=== PATIENT | female | born 1935 | race Caucasian/White ===

== ENCOUNTER 2021-03-02 20:13 | Inpatient (IN) | payer MEDICARE, OTHER, MEDICAID, SELFPAY ==
[2021-03-02] VITALS (18 sets, daily range): BP systolic 139–181; BP diastolic 64–93; PULSE 103–121; RESP 20–28; TEMP 36.7; O2SAT 86–99
--- NOTE | ~2021-03-02 | XR_ITS ---
EXAMINATION: [id number] DATE: 03/03/2021 17:16 INDICATION: Right rib pain TECHNIQUE: A frontal inspiratory view of the chest and 3 views of the right ribs were obtained. COMPARISON: Chest CT dated 03/02/2021 FINDINGS: No rib fractures identified. Mild. Scattered peripheral smooth septal line thickening and along the l ateral right lung and at the left midlung zone consistent with minimal pulmonary edema. Very small ri ght pleural effusion with some blunting at the right costophrenic angle. No pneumothorax. Cardiomegal y. Median sternotomy wires and mediastinal surgical clips are seen, likely from prior coronary artery bypass grafting. Old healed right humeral neck fracture. IMPRESSION: 1. No right rib fractures. 2. Mild pulmonary edema and small right pleural effusion. Reviewed, dictated and finalized at location A.
--- NOTE | ~2021-03-02 | CT_ITS ---
EXAMINATION: CTA chest PE protocol DATE: 03/02/2021 23:10 INDICATION: Right-sided chest pain. TECHNIQUE: Computed tomography (CT) pulmonary angiogram of the chest was performed with 100 mL Omnipa que-350 intravenous contrast. Additional 3D reconstructions utilizing coronal maximum intensity proje ction (MIP) were performed. Automated exposure control and iterative reconstruction technique were em ployed. The dose-length product was 898.12 mGy-cm. COMPARISON: None FINDINGS: Good contrast opacification of the pulmonary arteries. There is mild streak artifact from dense contr ast in the superior vena cava and right atrium. Moderate scattered respiratory motion artifact. Toget her this decreases sensitivity in the basilar subsegmental pulmonary arteries. No pulmonary embolism. Small bilateral pleural effusions with dependent compressive atelectasis in the bilateral lower and to a lesser degree upper lobes. No pulmonary edema or pneumonia. Cardiomegaly. Atherosclerotic perera ry artery calcification with change of prior median sternotomy and coronary artery bypass grafting. A ortic valve calcification. No pericardial effusion. The tortuous and atherosclerotic thoracic aorta i s normal in caliber with no dissection. No pathologically enlarged thoracic lymphadenopathy. Mild tho racic dextroscoliosis with severe spondylosis. Anterior fusion at T11-L1. IMPRESSION: 1. No pulmonary embolus and . Sensitivity decreased in the basilar subsegmental pulmonary arteries du e to primarily to motion. 2. Small bilateral pleural effusions with dependent compressive atelectasis. 2. Cardiomegaly. Reviewed, dictated and finalized at location A. IMPRESSION: 1. No pulmonary embolus and . Sensitivity decreased in the basilar subsegmental pulmonary arteries due to primarily to motion. 2. Small bilateral pleural effusions with dependent compressive atelectasis. 2. Cardiomegaly.
--- NOTE | ~2021-03-02 | US_ITS ---
EXAMINATION: US venous doppler LE EXAM DATE: 03/03/2021 09:35 INDICATION: Lower extremity edema. TECHNIQUE: Multiple grayscale, color flow and Doppler images of the lower extremity deep venous syste ms bilaterally were obtained and reviewed. Correlation is made to CT pulmonary report from 03/02/2021. FINDINGS: Right side: The right common femoral, femoral and profunda veins demonstrate normal color flow, respi ratory variation, augmentation and compressibility. Compressibility, color flow confirmed within the right popliteal, posterior tibial, peroneal, and greater saphenous veins. Left side: The left common femoral, femoral and profunda veins demonstrate normal color flow, respira tory variation, augmentation and compressibility. Compressibility, color flow confirmed within the l eft popliteal, posterior tibial, peroneal, and greater saphenous veins. IMPRESSION: 1. No lower extremity deep venous thrombosis bilaterally. Reviewed, dictated and finalized at location B.
--- NOTE | 2021-03-02 22:05 | ED.GENADULT ---
HPI - General Adult General Chief complaint: Chest Pain Stated complaint: abnormal BNP and D dimer Time Seen by Provider: 03/02/21 20:24 History of Present Illness HPI narrative: Patient 85-year-old female presents to emergency department with chief complaint of right-sided chest pain. The patient reports that she has noticed that her right leg is swelling at the intermediate and then had sudden onset sharp pleuritic pain on the right side of her chest patient states she felt short of breath noticed that her heart rate was beating fast patient had laboratory studies done as an outpatient at the intermediate that showed her to have an elevated D-dimer Dilaudid Related Data Allergies Allergy/AdvReac Type Severity Reaction Status Date / Time No Known Allergies Allergy Verified 03/02/21 20:27 Review of Systems Review of Systems: A 10 system review of systems was completed on the patient and is negative except for what is stated in the HPI. Nursing and ancillary documentation was reviewed. PMFSH Past Medical History Medical History Cellulitis of perineum Wound abscess Exam Narrative: GENERAL: Well-appearing, well-nourished, and in no acute distress. HEAD: Normocephalic, atraumatic. EYES: PERRLA and EOMI. ENT: Nares clear, no rhinorrhea or epistaxis. Mucous membranes moist. NECK: Supple. CHEST: Clear to auscultation. No respiratory distress. HEART: Regular rate and rhythm. No murmur heard. Normal peripheral pulses. ABDOMEN: Soft, nontender, nondistended, normal active bowel sounds. EXTREMITIES: Normal range of motion. No edema. SKIN: Warm, dry, no rash. NEURO: No focal deficits. Alert and oriented x3. PSYCH: Normal mood and affect. Course Vital Signs Vital signs: Vital Signs Temperature 36.7 C 03/02/21 20:17 Pulse Rate 121 H 03/02/21 20:17 Respiratory Rate 24 H 03/02/21 20:17 Blood Pressure 181/93 H 03/02/21 20:17 Pulse Oximetry 99 03/02/21 20:17 Temperature 36.7 C 03/02/21 20:17 Pulse Rate 97 03/03/21 00:04 Respiratory Rate 24 H 03/03/21 00:04 Blood Pressure 133/63 03/03/21 00:04 Pulse Oximetry 91 03/03/21 00:04 Medical Decision Making Vital Signs Vital Signs: Vital Signs Temperature 36.7 C 03/02/21 20:17 Pulse Rate 121 H 03/02/21 20:17 Respiratory Rate 24 H 03/02/21 20:17 Blood Pressure 181/93 H 03/02/21 20:17 Pulse Oximetry 99 03/02/21 20:17 Temperature 36.7 C 03/02/21 20:17 Pulse Rate 97 03/03/21 00:04 Respiratory Rate 24 H 03/03/21 00:04 Blood Pressure 133/63 03/03/21 00:04 Pulse Oximetry 91 03/03/21 00:04 Lab Data Result diagrams: 03/02/21 22:04 03/02/21 22:04 Labs: Lab Results 03/02/21 03/02/21 03/02/21 Range/Units 22:04 22:04 22:04 WBC 13.9 H (4.5-10.0) K/mm3 RBC 2.95 L (4.2-5.4) M/mm3 Hgb 11.2 L (12.0-15.0) g/dL Hct 33.6 L (37.0-47.0) % MCV 113.9 H (80-100) fl MCH 38.0 H (26-34) pg MCHC 33.3 (32-36) g/dl RDW 13.6 (11.5-14.5) % Plt Count 216 (150-375) k/mm3 MPV 12.5 H (7.4-10.4) fl Immature Gran % (Auto) 10.0 H (0-0.5) % Neut % (Auto) 79.4 H (45.5-73.1) % Lymph % (Auto) 6.4 L (18.3-44.2) % Swisher % (Auto) 2.7 (2.6-8.5) % Eos % (Auto) 1.0 (0-4.4) % Baso % (Auto) 0.5 (0.2-1.2) % Lymph # (Auto) 0.89 L (0.9-3.2) K/mm3 Swisher # (Auto) 0.4 (0.1-0.6) K/mm3 Eos # (Auto) 0.1 (0-0.3) K/mm3 Baso # (Auto) 0.1 (0.0-0.1) K/mm3 Abs Immat Gran (auto) 1.39 H (0.00-0.031) K/mm3 Absolute Neuts (auto) 11.0 H (1.3-6.7) K/mm3 Absolute Nucleated RBC 0.0 (0.0-0.012) K/mm3 Nucleated RBC % 0.0 (0.0-0.2) % PT 14.3 (11.1-14.7) Seconds INR 1.1 APTT 33.6 (22.3-36.8) SECONDS Sodium 139 (137-145) mmol/L Potassium 4.1 (3.4-5.0) mmol/L Chloride 103 (98-107) mmol/L Carbon Dioxide 28 (22-30) mmol/L Anion
[2021-03-02 22:13] LABS: Basophils Absolute Auto 0.1 K/mm3 (0.0-0.1); Basophils Percent Auto 0.5 % (0.2-1.2); Eosinophils Absolute Auto 0.1 K/mm3 (0-0.3); Hematocrit 33.6 % (37.0-47.0); Hemoglobin 11.2 g/dL (12.0-15.0); Immature Granulocyte Absolute 1.39 K/mm3 (0.00-0.031); Lymphocytes Absolute Auto 0.89 K/mm3 (0.9-3.2); Lymphocytes Percent Auto 6.4 % (18.3-44.2); Mean Corpuscular HGB Conc 33.3 g/dl (32-36); Mean Corpuscular Volume 113.9 fl (80-100); Mean Platelet Volume 12.5 fl (7.4-10.4); Monocytes Absolute Auto 0.4 K/mm3 (0.1-0.6); Monocytes Percent Auto 2.7 % (2.6-8.5); Neutrophils Percent Auto 79.4 % (45.5-73.1); Platelet Count Result 216 k/mm3 (150-375); Red Blood Count 2.95 M/mm3 (4.2-5.4); Red Cell Distribution Width 13.6 % (11.5-14.5); White Blood Count 13.9 K/mm3 (4.5-10.0)
[2021-03-02 22:22] LABS: INR 1.1; Prothrombin Time 14.3 Seconds (11.1-14.7)
[2021-03-02 22:23] LABS: Partial Thromboplastin Time 33.6 SECONDS (22.3-36.8)
[2021-03-02 22:24] LABS: Alanine Aminotransferase 14 U/L (4-35); Albumin Level 4.1 g/dL (3.5-5.1); Alkaline Phosphatase 81 U/L (38-126); Anion Gap 8 mmol/L (8-16); Aspartate Amino Transferase 21 U/L (14-36); Bilirubin,Total 0.7 mg/dL (0.2-1.3); Blood Urea Nitrogen 16 mg/dL (7-17); Calcium 9.2 mg/dL (8.4-10.2); Carbon Dioxide 28 mmol/L (22-30); Chloride 103 mmol/L (98-107); Estimated Glomerular Filt Rate > 60; Glucose 204 mg/dL (65-110); Lipase 28 U/L (23-300); Potassium 4.1 mmol/L (3.4-5.0); Sodium 139 mmol/L (137-145)
[2021-03-02 22:40] LABS: NT Pro B Type Natriuretic Pept 3800 pg/mL (5-100); Troponin I 0.097 ng/mL (0.000-0.034)
[2021-03-02] MEDS: NITROGLYCERIN SL 0.4 MG TABLET SUBLINGUAL (23:33)
[2021-03-02] MEDS: ASPIRIN 81 MG CHEWABLE TABLET 324 MG PO (23:33)
[2021-03-03] VITALS (26 sets, daily range): BP systolic 115–190; BP diastolic 51–107; PULSE 61–123; RESP 14–26; TEMP 36.3–37.2; O2SAT 91–99; BMI 29.4
[2021-03-03 00:48] LABS: Troponin I 0.101 ng/mL (0.000-0.034)
[2021-03-03 01:21] LABS: Add Urine Microscopic? YES; Appearance Urine Clear (Clear); Bilirubin Urine Negative (Negative); Blood Urine Negative (Negative); Color Urine Yellow (Yellow); Glucose Urine UA Negative (Negative); Ketones Urine Trace mg/dL (Negative); Leukocyte Esterase Ur Trace LEU/UL (Negative); Mucus Urine Moderate /lpf; Nitrate Urine Negative (Negative); Protein Urine Negative (Negative); RBC Urine 21-50 /hpf (0-2); Squamous Epithelial Cell Urine Many /hpf (Few); Urobilinogen Urine Negative mg/dL (<2.0); WBC Urine 16-20 /hpf
--- NOTE | 2021-03-03 03:30 | ADMGEN ---
This patient, Shireen Couch, was admitted to IMU Room 211-01. Patient/family oriented to hospital policies and general routines including ID bracelet, bed and alarms, visiting hours, pain management, procedures, bathroom and other care routines, personal items, smoking policy, room service/diet, and visiting hours. Information on how to activate the Rapid Response Team has been discussed. Patient/Family are encouraged to report perceived risks to care and to ask questions if they do not understand what they are told or what they should do.
[2021-03-03 03:57] LABS: Troponin I 0.117 ng/mL (0.000-0.034)
[2021-03-03 05:30] LABS: Anion Gap 7 mmol/L (8-16); Blood Urea Nitrogen 18 mg/dL (7-17); Carbon Dioxide 28 mmol/L (22-30); Chloride 104 mmol/L (98-107); Estimated CRCL calculation 62 ml/min; Estimated Glomerular Filt Rate > 60; Glucose 192 mg/dL (65-110); Potassium 4.2 mmol/L (3.4-5.0); Sodium 139 mmol/L (137-145)
[2021-03-03 06:55] LABS: Hematocrit 30.9 % (37.0-47.0); Hemoglobin 10.5 g/dL (12.0-15.0); Mean Platelet Volume 12.4 fl (7.4-10.4); Platelet Count Result 178 k/mm3 (150-375); Red Blood Count 2.76 M/mm3 (4.2-5.4); Red Cell Distribution Width 13.6 % (11.5-14.5); White Blood Count 4.8 K/mm3 (4.5-10.0)
[2021-03-03 08:51] LABS: Glucose Point of Care 157 mg/dl (65-105)
[2021-03-03] MEDS: METOPROLOL SUCCINATE EXT REL 25 MG TABCR PO (09:45)
[2021-03-03] MEDS: MECLIZINE HCL 12.5 MG TABLET PO (09:45)
[2021-03-03] MEDS: ACIDOPHILUS/BULGARICUS CHEWABLE TABLET 1 TABLET PO ×2 (09:45→17:48)
[2021-03-03] MEDS: polyethylene glycoL 3350 17 GM POWD.PACK PO (09:45)
[2021-03-03] MEDS: ASPIRIN 81 MG ENTERIC TABLET PO (09:45)
[2021-03-03] MEDS: BACLOFEN 10 MG TABLET PO ×3 (09:46→17:48)
[2021-03-03] MEDS: GABAPENTIN 100 MG CAPSULE 200 MG PO ×2 (09:46→17:47)
[2021-03-03] MEDS: THERAPEUTIC MULTIVITAMINS/MINERALS TAB (*BKC) 1 TABLET PO (09:47)
[2021-03-03] MEDS: NITROFURANTOIN MONOHYD MACROCR 100 MG CAP PO (09:47)
[2021-03-03 10:23] LABS: Troponin I 0.095 ng/mL (0.000-0.034)
[2021-03-03 13:09] LABS: Glucose Point of Care 137 mg/dl (65-105)
--- NOTE | 2021-03-03 13:29 | PM.IMHP ---
H&P: HPI History of Present Illness Date/Time: 03/03/21 13:29 Chief Complaint: Chest pain Narrative: Date of admission: 03/02/21 Date of service: 03/02/21 Shireen Couch is an 85 year old female with a history of CAD, HTN, type 2 diabetes mellitus, and frequent urinary tract infections who is seen in follow up for right sided chest pain. She is occasionally confused but overall is able to provide me with a reasonably clear history. She tells me she came to the hospital to bring her friend in, but somehow she became the patient instead. Aside from this confusion, she is able to answer all my questions appropriately. She describes intermittent right-sided chest pain that is stabbing in nature ongoing for 2-3 days. Nothing relieves the pain. Her pain is sometimes worsened when she takes a deep breath or cough. Sometimes movement worsens the pain. She has no associated shortness of breath, palpitations, sweats, arm, shoulder, or jaw pain, or nausea/vomiting. She denies shortness of breath. At this time she rates her pain is 0/10. She says about an hour ago it was 4/10 and at its worst, it has been 7/10. She does have a history of coronary artery disease but reports she has never had symptoms similar to this in the past. On presentation to the emergency department, she was tachycardic and tachypneic, her BP was elevated, WBC 13.9, BNP 3800, troponin 0.097, additional laboratory workup unremarkable, and CTA showed cardiomegaly with small bilateral pleural effusions and no evidence of pulmonary embolism. She has been admitted to the hospitalist service for observation. Supervising physician for this history and physical is Dr. Na Quijano. Review of Systems Review of Systems: All systems reviewed with pertinent positives and negatives as per HPI. Additionally, patient endorses chronic cough. She endorses acid reflux. She complains of occasional dysphagia, noting that sometime she chokes when she eats meals. She had a normal bowel movement yesterday. She tells me that she is incontinent of stool. I spoke with prison staff who report that she has been on a lengthy course of treatment for urinary tract infection. She had just completed cefuroxime yesterday and has continued to take Macrobid. She is unable to endorse any urinary symptoms. She denies any episodes of bleeding. She does feel that she has been more weak and has difficulty getting around. She is wheelchair dependent. She denies headache. She does report feeling a bit confused mostly because ?everyone is asking me all these questions?. She has no known COVID exposure and completed her two part vaccination several months ago (cannot recall when). Spoke with her daughter who notes that she often has some mild confusion with cognitive decline noted over the past several months. She believes she is more confused than baseline today. She also believes that she has had increased weakness. [facility] Past Medical History Medical History (Updated 03/03/21 @ 16:06 by Fadumo Collado PA-C) Cellulitis of perineum Coronary artery disease Frequent UTI Hypertension Type 2 diabetes mellitus Wound abscess Surgical History Surgical History (Updated 03/03/21 @ 15:49 by Fadumo Collado PA-C) History of coronary artery bypass graft 2008 Family History Family History Father Heart disease Mother Alzheimer disease Social History Social History (Updated 03/03/21 @ 15:51 by Fadumo Collado PA-C) Social History: Ms. Couch lives at [facility]. 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 Yan Scott. She has 2 adult children. She designates her daughter, Sally, as her surrogate decision maker. She would like to be DNR. Smoking status: Never smoker Alcohol intake: never Substance use: never Spiritual care concerns: No Meds Home Medications and All
--- NOTE | 2021-03-03 16:14 | ECG_ITS ---
Measurements Intervals [place] Rate: 95 P: 65 RI: 205 QRS: 33 QRSD: 141 T: -3 QT: 381 QTc: 481 Interpretive Statements SINUS RHYTHM BORDERLINE AV CONDUCTION DELAY RIGHT BUNDLE BRANCH BLOCK INFERIOR INFARCT, AGE INDETERMINATE BASELINE WANDER- V3 ABNORMAL ECG Electronically Signed On 03-03-2021 19:51:07 CDT by Richie Scott D.O.
--- NOTE | 2021-03-03 16:14 | PC.NURSE ---
On 03/03/21, the student, Twila [facility], provided care and completed mobintent documentation on this patient. I have reviewed the student's documentation and agree with the findings.
[2021-03-03 16:38] LABS: Glucose Point of Care 152 mg/dl (65-105)
[2021-03-03] MEDS: FUROSEMIDE 40 MG TABLET PO (17:47)
[2021-03-03] MEDS: AMIODARONE 150 MG/D5W 100 ML 150 MG/100 ML BAG 600 MG IV CONT (18:14)
[2021-03-03] MEDS: AMIODARONE 360 MG/D5W 200 ML 360 MG/200 ML BAG 33.33 MG IV CONT (18:25)
[2021-03-03 20:20] LABS: Glucose Point of Care 232 mg/dl (65-105)
[2021-03-03 22:12] LABS: Anion Gap 9 mmol/L (8-16); Blood Urea Nitrogen 19 mg/dL (7-17); Carbon Dioxide 30 mmol/L (22-30); Chloride 100 mmol/L (98-107); Estimated CRCL calculation 54 ml/min; Estimated Glomerular Filt Rate > 60; Glucose 236 mg/dL (65-110); Magnesium 1.9 mg/dL (1.6-2.3); Phosphorus 4.1 mg/dL (2.5-4.5); Potassium 3.7 mmol/L (3.4-5.0); Sodium 139 mmol/L (137-145)
[2021-03-04] VITALS (18 sets, daily range): BP systolic 119–141; BP diastolic 46–74; PULSE 60–74; RESP 12–18; TEMP 36.1–36.9; O2SAT 91–100; BMI 11.0
[2021-03-04 05:34] LABS: Hematocrit 31.3 % (37.0-47.0); Hemoglobin 10.2 g/dL (12.0-15.0); Mean Corpuscular HGB Conc 32.6 g/dl (32-36); Mean Corpuscular Hemoglobin 37.9 pg (26-34); Mean Corpuscular Volume 116.4 fl (80-100); Mean Platelet Volume 12.8 fl (7.4-10.4); Platelet Count Result 176 k/mm3 (150-375); Red Blood Count 2.69 M/mm3 (4.2-5.4); Red Cell Distribution Width 13.7 % (11.5-14.5); White Blood Count 5.2 K/mm3 (4.5-10.0)
[2021-03-04 05:45] LABS: Anion Gap 9 mmol/L (8-16); Blood Urea Nitrogen 23 mg/dL (7-17); Calcium 9.1 mg/dL (8.4-10.2); Carbon Dioxide 33 mmol/L (22-30); Chloride 99 mmol/L (98-107); Estimated CRCL calculation 54 ml/min; Estimated Glomerular Filt Rate > 60; Glucose 163 mg/dL (65-110); Potassium 3.6 mmol/L (3.4-5.0); Sodium 141 mmol/L (137-145)
--- NOTE | 2021-03-04 06:00 | ECHO_ITS ---
Patient Info Name: Shireen Couch Age: 85 years : 1935 Gender: Female Ht: 66 in Wt: 182 lbs BSA: 1.98 m2 HR: 74 bpm BP: 132 / 54 mmHg Technical Quality: Fair Exam Date: 03/04/2021 10:34 AM Exam Location: [facility] Patient Status: Inpatient Admit Date: 03/04/2021 Staff Ordering Physician: Alfredo Harris MD Alcohol And Drug Counselor: Nasreen Moreland RDCS Attending Provider: Fadumo Collado PA-C Referring Physician: Steven GAITAN; Exam Type: CA echo dop color flow w con Study Info Indications - ELEVATED BNP R07.9 - Chest pain, unspecified Complete two-dimensional, color flow and Doppler transthoracic echocardiogram is performed with contrast to opacify the left ventricle and to improve the deliniation of the left ventricle endocardial borders. Contrast/Agitated Saline Contrast/Ag. Saline: Definity Amount: 1.00 ml Administered By: Ivette Mcmahon RN Existing IV Access: Yes IV Access Condition: patent with no signs of infiltration Summary 1. Left ventricular chamber dimension is moderately enlarged. 2. Definity contrast administered improved wall motion interpretation. 3. Left ventricular systolic function is moderately reduced, estimated at 35-40%. 4. The left ventricular diastolic function is grade I diastolic dysfunction. 5. E/e' 13 is mildly elevated. 6. Global longitudinal strain is abnormal at -10.2%. 7. Left atrial chamber dimension is mildly enlarged. 8. There is severe aortic valve sclerosis. 9. There is moderate aortic valve stenosis with a peak velocity of 218.29 cm/s, mean gradient of 12 mmHg, and aortic valve area of 1.47 cm2. 10. The mitral valve has moderately calcified annulus. 11. There is mild mitral valve regurgitation. 12. There is trace tricuspid valve regurgitation. 13. No pulmonary hypertension, estimated pulmonary arterial systolic pressure is 22 mmHg. Left Ventricle E/e' 13 is mildly elevated. Global longitudinal strain is abnormal at -10.2%. Definity contrast administered improved wall motion interpretation. Left ventricular chamber dimension is moderately enlarged. Left ventricular systolic function is moderately reduced, estimated at 35-40%. The left ventricular diastolic function is grade I diastolic dysfunction. Right Ventricle Right ventricular chamber dimension is not well visualized. Left Atria Left atrial chamber dimension is mildly enlarged. Right Atria Right atrial chamber dimension is normal. Aortic Valve The aortic valve is trileaflet. There is severe aortic valve sclerosis. There is moderate aortic valve stenosis with a peak velocity of 218.29 cm/s, mean gradient of 12 mmHg, and aortic valve area of 1.47 cm2. There is no aortic valve regurgitation. Pulmonic Valve There is no pulmonic regurgitation. Mitral Valve The mitral valve has moderately calcified annulus. There is no mitral valve stenosis. There is mild mitral valve regurgitation. Tricuspid Valve There is trace tricuspid valve regurgitation. No pulmonary hypertension, estimated pulmonary arterial systolic pressure is 22 mmHg. Pericardium/Pleural There is no pericardial effusion. Inferior Vena Cava Normal inferior vena cava with >50% collapse upon inspiration consistent with normal right atrial pressure, 5 mmHg. Aorta The aortic root size at the sinus of Valsalva is normal. Left Ventricular Outflow Tract
--- NOTE | 2021-03-04 08:06 | PM.CNCAR ---
Assessment and Plan Assessment and plan (1) Dyspnea: Code(s): R06.00 - Dyspnea, unspecified Status: Acute Assessment and Plan: Agree with Lasix 40 mg PO daily. (2) CAD (coronary artery disease), autologous vein bypass graft: Code(s): I25.810 - Atherosclerosis of coronary artery bypass graft(s) without angina pectoris Status: Acute Assessment and Plan: She is on aspirin and Metoprolol, but not a statin for unknown reasons. Not sure if she has a instrumentation chemist she normally sees. May need info from family as patient is unsure. (3) Elevated troponin: Code(s): R77.8 - Other specified abnormalities of plasma proteins Status: Acute Assessment and Plan: Mild and flat. Probably related to volume overload. Will check echo. (4) PAT (paroxysmal atrial tachycardia): Code(s): I47.1 - Supraventricular tachycardia Status: Acute Assessment and Plan: On Amiodarone drip. (5) PVT (paroxysmal ventricular tachycardia): Code(s): I47.2 - Ventricular tachycardia Status: Acute Assessment and Plan: Started on Amiodarone drip last evening. Will run for 24 hours, then change to 200 mg PO BID for 2 weeks, then 200 mg daily. EKG to check QT interval. Obtain echo. History of Present Illness History of Present Illness Consult date/time: 03/04/21 08:06 Reason for consult: VT. 85 yr old woman presented to hospital for unknown reasons as patient is confused. History and information obtained from the chart. She has a history of worsening confusion probably due to dementia, CAD/CABG (per patient it was 5 vessels, unknown hospital or date it was done), DM, UTI, DNR code status, and resides at [facility]. She is alert and oriented x 2 but not location, thinking she is in her attic of her house, and forgot I informed her she is in the hospital. She states she has some sob currently, but no chest pain. She states she can walk with her walker about 50 feet normally. Hb 10.2. Trop .101, then .117, then .095. EKG shows Sinus rhythm, borderline AV conduction delay, RBBB, inferior infarct, age indeterminate. CXR shows mild pulm edema with small right pleural effusion.CT chest shows no pulm embolism. On telemetry at around 17:50 she had runs of atrial tachycardia up to 150 bpm and then 18:04 had intermittent runs of VT up to 15 beats. Amiodarone drip started and her rhythm has been sinus rhtyhm. Reason For Visit: Chest pain; Elevated troponin Review of Systems Review of Systems: ROS unobtainable: Yes unobtainable due to mental status Constitutional: Constitutional: Reports as per HPI Cardiovascular: Cardiovascular: Denies chest pain and Reports dyspnea Respiratory: Respiratory: Reports dyspnea Gastrointestinal: Gastrointestinal: Denies abdominal pain [facility] Past Medical History Medical History (Updated 03/04/21 @ 08:15 by Richie Scott DO) Cellulitis of perineum Coronary artery disease Frequent UTI Hypertension Type 2 diabetes mellitus Wound abscess Surgical History Surgical History (Updated 03/03/21 @ 15:49 by Fadumo Collado PA-C) History of coronary artery bypass graft 2008 Family History Family History Father Heart disease Mother Alzheimer disease Social History Social History (Updated 03/03/21 @ 15:51 by Fadumo Collado PA-C) Social History: Ms. Couch lives at [facility] ([place], [place]). 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 Yan Scott. She has 2 adult children. She designates her daughter, Sally, as her surrogate decision maker. She would like to be DNR. Smoking status: Never smoker Alcohol intake: never Substance use: never Spiritual care concerns: No Meds Home Medications and Allergies Home Medications Medication Instructions Recorded Confirmed Type hydrocodone 7.5 mg-acetaminophen 1 tablet
[2021-03-04 08:23] LABS: Glucose Point of Care 144 mg/dl (65-105)
[2021-03-04] MEDS: FUROSEMIDE 40 MG TABLET PO (09:53)
[2021-03-04] MEDS: ENOXAPARIN 40 MG/0.4 ML SYRINGE SUB-Q (09:53)
[2021-03-04] MEDS: GABAPENTIN 100 MG CAPSULE 200 MG PO ×2 (09:53→17:17)
[2021-03-04] MEDS: BACLOFEN 10 MG TABLET PO ×3 (09:53→17:17)
[2021-03-04] MEDS: METOPROLOL SUCCINATE EXT REL 25 MG TABCR PO (09:54)
[2021-03-04] MEDS: MECLIZINE HCL 12.5 MG TABLET PO (09:54)
[2021-03-04] MEDS: ACIDOPHILUS/BULGARICUS CHEWABLE TABLET 1 TABLET PO ×2 (09:54→17:17)
[2021-03-04] MEDS: ASPIRIN 81 MG ENTERIC TABLET PO (09:54)
[2021-03-04] MEDS: THERAPEUTIC MULTIVITAMINS/MINERALS TAB (*BKC) 1 TABLET PO (09:54)
[2021-03-04] MEDS: polyethylene glycoL 3350 17 GM POWD.PACK PO (09:54)
[2021-03-04] MEDS: PERFLUTREN LIPID MICROSPHERES 1.5 ML VIAL DILUTED TO 10 ML TOTAL VOLUME IV PUSH (11:07)
[2021-03-04] MEDS: AMIODARONE 360 MG/D5W 200 ML 360 MG/200 ML BAG 16.67 MG IV CONT ×2 (11:54)
[2021-03-04 12:42] LABS: Glucose Point of Care 177 mg/dl (65-105)
--- NOTE | 2021-03-04 14:58 | P.PNIM_ITS ---
Progress Note: A&P Assessment and Plan (1) PVT (paroxysmal ventricular tachycardia): Code(s): I47.2 - Ventricular tachycardia Status: Acute Assessment and Plan: Had an episode of stable ventricular tachycardia yesterday evening. * Appreciate cardiology consultation * Started on amiodarone drip 03/03 * Transition to amiodarone 200 mg p.o. b.i.d. after amiodarone drip for 24 hours. * EKG and echocardiogram reviewed. * Electrolytes stable. Continue to monitor closely. * Monitor on telemetry (2) CHF (congestive heart failure): Code(s): I50.9 - Heart failure, unspecified Status: Acute Assessment and Plan: BNP elevated at 3800 with cardiomegaly and small pleural effusions on CTA. * Echo performed today showed EF 35-40% with grade 1 diastolic dysfunction * Continue with Lasix 40 mg p.o. daily * Monitor intake and output. Weigh daily * Heart healthy diet (3) Hypoxia: Code(s): R09.02 - Hypoxemia Status: Acute Assessment and Plan: Noted to be hypoxic down to 86% on presentation to ED. may be related to CHF. No evidence of lung disease arm pulmonary embolism on CTA * She is currently requiring 3 L supplemental O2, maintaining adequate oxygenation 95% or above, therefore this can be weaned as tolerated with goal saturation 92% or above. (4) Atypical chest pain: Code(s): R07.89 - Other chest pain Status: Acute Assessment and Plan: Presented with 2 days of right-sided pleuritic chest pain which is reproducible on exam. Most consistent with musculoskeletal pain. * CTA negative for PE * X-ray negative for right-sided rib fracture. * Supportive care. Analgesics available as needed. Ice and heat prn (5) Elevated troponin: Code(s): R77.8 - Other specified abnormalities of plasma proteins Status: Acute Assessment and Plan: Troponins minimally elevated with overall flat trend. Chest pain atypical as described above. * This may be due to volume overload given elevated BNP and crackles on exam. * Acute coronary syndrome is not suspected based on overall clinical picture * Echo reviewed (6) Abnormal urinalysis: Code(s): R82.90 - Unspecified abnormal findings in urine Status: Acute Assessment and Plan: UA abnormal on presentation. She is incontinent and not able to indicate urinary symptoms, though she is more confused than baseline. Mild leukocytosis has resolved. She is afebrile. * Continue IV ceftriaxone, started on 03/03 * Urine culture pending. Await results and tailor antibiotics accordingly. * She has been on Macrobid at detention for UTI. Hold this medication. (7) Type 2 diabetes mellitus: Code(s): E11.9 - Type 2 diabetes mellitus without complications Status: Acute Assessment and Plan: A1c is 7.0. * Accu-Cheks, sliding scale insulin, and hypoglycemic protocol * Continue home Januvia (8) Hypertension: Code(s): I10 - Essential (primary) hypertension Status: Acute Assessment and Plan: Blood pressure reviewed and has been generally well controlled. Last BP 132/61 * Continue metoprolol succinate * Monitor blood pressure trends (9) Moderate aortic stenosis: Code(s): I35.0 - Nonrheumatic aortic (valve) stenosis Status: Inactive Assessment and Plan: Evident on echocardiogram. Blood pressure is stable * Outpatient cardiology follow-up will be arranged Subj
--- NOTE | 2021-03-04 14:58 | PM.IMPN ---
Progress Note: A&P Assessment and Plan (1) PVT (paroxysmal ventricular tachycardia): Code(s): I47.2 - Ventricular tachycardia Status: Acute Assessment and Plan: Had an episode of stable ventricular tachycardia yesterday evening. Appreciate cardiology consultation Started on amiodarone drip 03/03 Transition to amiodarone 200 mg p.o. b.i.d. after amiodarone drip for 24 hours. EKG and echocardiogram reviewed. Electrolytes stable. Continue to monitor closely. Monitor on telemetry (2) CHF (congestive heart failure): Code(s): I50.9 - Heart failure, unspecified Status: Acute Assessment and Plan: BNP elevated at 3800 with cardiomegaly and small pleural effusions on CTA. Echo performed today showed EF 35-40% with grade 1 diastolic dysfunction Continue with Lasix 40 mg p.o. daily Monitor intake and output. Weigh daily Heart healthy diet (3) Hypoxia: Code(s): R09.02 - Hypoxemia Status: Acute Assessment and Plan: Noted to be hypoxic down to 86% on presentation to ED. may be related to CHF. No evidence of lung disease arm pulmonary embolism on CTA She is currently requiring 3 L supplemental O2, maintaining adequate oxygenation 95% or above, therefore this can be weaned as tolerated with goal saturation 92% or above. (4) Atypical chest pain: Code(s): R07.89 - Other chest pain Status: Acute Assessment and Plan: Presented with 2 days of right-sided pleuritic chest pain which is reproducible on exam. Most consistent with musculoskeletal pain. CTA negative for PE X-ray negative for right-sided rib fracture. Supportive care. Analgesics available as needed. Ice and heat prn (5) Elevated troponin: Code(s): R77.8 - Other specified abnormalities of plasma proteins Status: Acute Assessment and Plan: Troponins minimally elevated with overall flat trend. Chest pain atypical as described above. This may be due to volume overload given elevated BNP and crackles on exam. Acute coronary syndrome is not suspected based on overall clinical picture Echo reviewed (6) Abnormal urinalysis: Code(s): R82.90 - Unspecified abnormal findings in urine Status: Acute Assessment and Plan: UA abnormal on presentation. She is incontinent and not able to indicate urinary symptoms, though she is more confused than baseline. Mild leukocytosis has resolved. She is afebrile. Continue IV ceftriaxone, started on 03/03 Urine culture pending. Await results and tailor antibiotics accordingly. She has been on Macrobid at [facility] for UTI. Hold this medication. (7) Type 2 diabetes mellitus: Code(s): E11.9 - Type 2 diabetes mellitus without complications Status: Acute Assessment and Plan: A1c is 7.0. Accu-Cheks, sliding scale insulin, and hypoglycemic protocol Continue home Januvia (8) Hypertension: Code(s): I10 - Essential (primary) hypertension Status: Acute Assessment and Plan: Blood pressure reviewed and has been generally well controlled. Last BP 132/61 Continue metoprolol succinate Monitor blood pressure trends (9) Moderate aortic stenosis: Code(s): I35.0 - Nonrheumatic aortic (valve) stenosis Status: Inactive Assessment and Plan: Evident on echocardiogram. Blood pressure is stable Outpatient cardiology follow-up will be arranged Subjective Date/time seen: 03/04/21 14:58 Interval history: Date of service: 03/04/2020 Shireen Couch is an 85 year old female with a history of CAD, HTN, type 2 diabetes mellitus, and frequent urinary tract infections. She is doing well today. She is to answer all questions appropriately but does exhibit significant confusion in conversation. She continues to endorse right-sided chest discomfort that she describes as a stabbing sensation and is worse with movement. She was able to g
[2021-03-04 17:07] LABS: Glucose Point of Care 179 mg/dl (65-105)
[2021-03-04] MEDS: AMIODARONE HCL 200 MG TABLET PO (17:17)
[2021-03-04 20:49] LABS: Glucose Point of Care 170 mg/dl (65-105)
[2021-03-05] VITALS (19 sets, daily range): BP systolic 116–155; BP diastolic 49–77; PULSE 60–80; RESP 15–22; TEMP 36.1–36.9; O2SAT 96–100
[2021-03-05 05:03] LABS: Hematocrit 28.7 % (37.0-47.0); Hemoglobin 9.7 g/dL (12.0-15.0); Mean Corpuscular HGB Conc 33.8 g/dl (32-36); Mean Corpuscular Hemoglobin 37.6 pg (26-34); Mean Corpuscular Volume 111.2 fl (80-100); Mean Platelet Volume 12.8 fl (7.4-10.4); Platelet Count Result 191 k/mm3 (150-375); Red Blood Count 2.58 M/mm3 (4.2-5.4); Red Cell Distribution Width 13.2 % (11.5-14.5); White Blood Count 5.2 K/mm3 (4.5-10.0)
[2021-03-05 05:16] LABS: Anion Gap 6 mmol/L (8-16); Blood Urea Nitrogen 18 mg/dL (7-17); Calcium 8.7 mg/dL (8.4-10.2); Carbon Dioxide 33 mmol/L (22-30); Chloride 98 mmol/L (98-107); Cholesterol 175 mg/dL (0-200); Estimated CRCL calculation 54 ml/min; Estimated Glomerular Filt Rate > 60; Glucose 158 mg/dL (65-110); HDL Direct 25 mg/dL; Potassium 3.4 mmol/L (3.4-5.0); Sodium 137 mmol/L (137-145); Triglycerides 151 mg/dL (<150)
[2021-03-05 05:26] LABS: LDL Cholesterol Direct 120 mg/dL
--- NOTE | 2021-03-05 06:26 | ECG_ITS ---
Measurements Intervals [place] Rate: 68 P: 43 OR: 221 QRS: 18 QRSD: 138 T: 45 QT: 473 QTc: 503 Interpretive Statements SINUS RHYTHM WITH FIRST DEGREE AV BLOCK RIGHT BUNDLE BRANCH BLOCK INFERIOR INFARCT, AGE INDETERMINATE PROLONGED QT INTERVAL ABNORMAL ECG Electronically Signed On 03-05-2021 11:11:55 CDT by Richie Scott D.O.
--- NOTE | 2021-03-05 07:33 | P.CDI_ITS ---
CDI Query Clarification Request -CHF has been documented - BNP elevated at 3800 with cardiomegaly and small pleural effusions on CTA documented -CXR impression: mild pulmonary edema and small right pleural effusion - Echo summary: EF 35-40 %, grade 1 diastolic dysfunction, moderate aortic stenosis -Lasix 40mf po daily ordered Please further specify type and acuity of CHF: * Systolic *Acute * Diastolic *Chronic * Both systolic and diastolic *Acute on chronic * Unable to determine *Unable to determine
--- NOTE | 2021-03-05 07:35 | PM.PNCARD ---
Progress Note: A&P Assessment and Plan (1) Dyspnea: Code(s): R06.00 - Dyspnea, unspecified Status: Acute Assessment and Plan: Agree with Lasix 40 mg PO daily. (2) CAD (coronary artery disease), autologous vein bypass graft: Code(s): I25.810 - Atherosclerosis of coronary artery bypass graft(s) without angina pectoris Status: Acute Assessment and Plan: She is on aspirin and Metoprolol, start Pravastatin. (3) Elevated troponin: Code(s): R77.8 - Other specified abnormalities of plasma proteins Status: Acute Assessment and Plan: Mild and flat. Probably related to volume overload. (4) PAT (paroxysmal atrial tachycardia): Code(s): I47.1 - Supraventricular tachycardia Status: Acute Assessment and Plan: Stable rhythm on Amiodarone PO. (5) PVT (paroxysmal ventricular tachycardia): Code(s): I47.2 - Ventricular tachycardia Status: Acute Assessment and Plan: Stable rhythm on Amiodarone. Received Amiodarone drip for 24 hours, then changed to 200 mg PO BID for 2 weeks, then 200 mg daily. EKG to check QT interval. 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 On Lasix 40 mg PO daily. Echo showed EF 35-40%, grade I diastolic dysfunction, mod . On Toprol. Start Losartan 25 mg daily. Assess oxygen requirements and if OK may d/c home from cardiology standpoint and to f/u with me in 1 week. (7) Dyslipidemia: Code(s): E78.5 - Hyperlipidemia, unspecified Status: Acute Assessment and Plan: LDL 120. Start Pravastatin 10 mg daily. (8) Aortic stenosis: Code(s): I35.0 - Nonrheumatic aortic (valve) stenosis Status: Acute Assessment and Plan: Moderate. Stable. Subjective Date/time seen: 03/05/21 07:35 Reports right chest twinges only. Has some sob. Exam Const: General: cooperative, healthy appearing, comfortable, alert and confusion Resp: Auscultation: clear to auscultation bilaterally, no crackles, no rales, no rhonchi and no wheezes Cardio: Jugular venous distension: JVD present Rate: regular rate Rhythm: regular rhythm Heart sounds: no murmurs GI: GI Palp: No abdominal tenderness and Yes Soft to palpation Neuro: General: oriented to person, No oriented to place and oriented to time Extrem: Right lower extremity: no edema Left lower extremity: no edema Objective Data Vital Signs Vital Signs: Vital Signs - 24 hr 03/04/21 08:00 03/04/21 09:54 03/04/21 10:00 Temperature 97.5 F L Pulse Rate 71 69 74 Respiratory Rate 12 Blood Pressure 141/62 H Pulse Oximetry 96 03/04/21 11:54 03/04/21 12:00 03/04/21 14:00 Temperature 98.4 F Pulse Rate 66 66 71 Respiratory Rate 12 Blood Pressure 132/61 Pulse Oximetry 96 03/04/21 15:00 03/04/21 16:00 03/04/21 17:17 Temperature 98.3 F Pulse Rate 71 71 Respiratory Rate 12 Blood Pressure 119/46 L Pulse Oximetry 95 96 03/04/21 18:00 03/04/21 19:53 03/04/21 20:00 Temperature 96.9 F L Pulse Rate 73 67 68 Respiratory Rate 18 Blood Pressure 126/55 L Pulse Oximetry 94 96 03/04/21 22:00 03/04/21 23:36 03/05/21 00:00 Temperature 97.4 F L Pulse Rate 62 71 60 Respiratory Rate 16 Blood Pressure 137/53 L Pulse Oximetry 100 96 03/05/21 01:08 03/05/21 02:00 03/05/21 03:50 Temperature 97 F L Pulse Rate 62 65 Respiratory Rate 18 Blood Pressure 144/57 H Pulse Oximetry 96 98 03/05/21 04:00 Temperature Pulse Rate 63 Respiratory Rate Blood Pressure Pulse Oximetry 98 Intake/Output Intake/Output: Intake & Output 03/02/21 03/03/21 03/04/21 03/05/21 23:59 23:59 23:59 23:59 Intake Total 120 1180 300 Balance 120 1180 300 Meds/Results Medications: Active Medications Generic Name
[2021-03-05 10:14] LABS: Glucose Point of Care 159 mg/dl (65-105)
[2021-03-05] MEDS: ACIDOPHILUS/BULGARICUS CHEWABLE TABLET 1 TABLET PO ×2 (10:19→18:11)
[2021-03-05] MEDS: GABAPENTIN 100 MG CAPSULE 200 MG PO ×2 (10:20→18:11)
[2021-03-05] MEDS: THERAPEUTIC MULTIVITAMINS/MINERALS TAB (*BKC) 1 TABLET PO (10:20)
[2021-03-05] MEDS: MECLIZINE HCL 12.5 MG TABLET PO (10:20)
[2021-03-05] MEDS: PRAVASTATIN SODIUM 10 MG TABLET PO (10:20)
[2021-03-05] MEDS: AMIODARONE HCL 200 MG TABLET PO (10:21)
[2021-03-05] MEDS: LOSARTAN POTASSIUM 25 MG TABLET PO (10:21)
[2021-03-05] MEDS: METOPROLOL SUCCINATE EXT REL 25 MG TABCR PO (10:25)
[2021-03-05] MEDS: ASPIRIN 81 MG ENTERIC TABLET PO (10:25)
[2021-03-05] MEDS: ENOXAPARIN 40 MG/0.4 ML SYRINGE SUB-Q (10:26)
[2021-03-05] MEDS: BACLOFEN 10 MG TABLET PO ×3 (10:26→18:11)
[2021-03-05] MEDS: polyethylene glycoL 3350 17 GM POWD.PACK PO (10:26)
[2021-03-05] MEDS: FUROSEMIDE 40 MG TABLET PO (10:26)
--- NOTE | 2021-03-05 12:00 | PM.IMPN ---
Progress Note: A&P Assessment and Plan (1) PVT (paroxysmal ventricular tachycardia): Code(s): I47.2 - Ventricular tachycardia Status: Acute Assessment and Plan: Had an episode of stable ventricular tachycardia 03/03 Cardiology consulted, recommendations appreciated S/p amiodarone drip x24 hrs Now on amiodarone 200 mg p.o. b.i.d. x2 weeks, then 200 mg daily ECHO-->EF 35-40 %, grade I diastolic dysfunction, mod Continue Toprol Losartan initiated today per cards Tele monitoring (2) CHF (congestive heart failure): Code(s): I50.9 - Heart failure, unspecified Status: Acute Assessment and Plan: BNP elevated at 3800 with cardiomegaly and small pleural effusions on CTA ECHO-->EF 35-40 %, grade I diastolic dysfunction, mod Continue with Lasix 40 mg p.o. daily Monitor intake and output Weigh daily Heart healthy diet Wean O2 PT/OT (3) Hypoxia: Code(s): R09.02 - Hypoxemia Status: Acute Assessment and Plan: Noted to be hypoxic down to 86% on presentation to ED Suspect related to CHF. No evidence of lung disease arm pulmonary embolism on CTA Now on 3 L supplemental O2, maintaining adequate oxygenation 95% or above, wean as tolerated with goal saturation 92% or > (4) Atypical chest pain: Code(s): R07.89 - Other chest pain Status: Acute Assessment and Plan: CTA negative for PE X-ray negative for right-sided rib fracture Supportive care. Analgesics available as needed Ice and heat prn (5) Elevated troponin: Code(s): R77.8 - Other specified abnormalities of plasma proteins Status: Acute Assessment and Plan: Troponins minimally elevated, flat trend chest pain atypical Likely 2/2 CHF exacerbation Acute coronary syndrome is not suspected based on overall clinical picture Echo reviewed (6) Abnormal urinalysis: Code(s): R82.90 - Unspecified abnormal findings in urine Status: Acute Assessment and Plan: UA abnormal on presentation Incontinent, denies urinary symptoms More confused than baseline Mild leukocytosis has resolved, afebrile Continue IV ceftriaxone, started on 03/03 UC probable contamination She has been on Macrobid at [facility] for UTI. Hold for now (7) Type 2 diabetes mellitus: Code(s): E11.9 - Type 2 diabetes mellitus without complications Status: Acute Assessment and Plan: A1c is 7.0 Accu-Cheks, sliding scale insulin, and hypoglycemic protocol Continue home Januvia Monitor (8) Hypertension: Code(s): I10 - Essential (primary) hypertension Status: Acute Assessment and Plan: Elevated this a.m. Continue metoprolol succinate Monitor blood pressure trends (9) Moderate aortic stenosis: Code(s): I35.0 - Nonrheumatic aortic (valve) stenosis Status: Inactive Assessment and Plan: Evident on echocardiogram Cardiology consulted, pt to follow up o/p Subjective Date/time seen: 03/05/21 12:00 Interval history: pt seen and evaluated; no acute events overnight; denies any new complaints Review of Systems Review of Systems: All systems reviewed & are unremarkable except as noted in HPI and below Exam Const: General: no acute distress, alert and awake Orientation/consciousness: patient oriented x3 HENMT: Head: normocephalic and atraumatic Ears: hearing grossly normal bilaterally and external ears normal Face and sinus: face symmetric Mouth: Yes Normal oral and palatal mucosa present Eyes: Pupils: Equal, round and reactive pupils present EOM: EOMs intact bilaterally Neck: Neck: full ROM, trachea midline and no JVD Resp: Auscultation: diminished lung sounds Cardio: Jugular venous distension: no JVD Rate: regular rate Rhythm: regular rhythm Heart sounds: S1 normal heart sound present and S2 normal heart sound present GI: Inspection: normal to inspection GI Palp: Yes Soft to palpation Percussion: Yes normal to percussion Au
[2021-03-05 13:17] LABS: Glucose Point of Care 216 mg/dl (65-105)
[2021-03-05] MEDS: INSULIN ASPART (*BKC) 100 UNITS/ML SUB-Q (13:20)
--- NOTE | 2021-03-05 15:48 | PCRCNOTE ---
HOME O2 EVAL NOT REQUIRED. PT RESIDES IN ALF, ALF STAFF WITH [facility] o2 as needed.
[2021-03-05 16:48] LABS: Glucose Point of Care 119 mg/dl (65-105)
[2021-03-05 20:52] LABS: Glucose Point of Care 162 mg/dl (65-105)
[2021-03-06] VITALS (21 sets, daily range): BP systolic 108–147; BP diastolic 41–58; PULSE 61–77; RESP 15–26; TEMP 35.9–36.6; O2SAT 90–100
[2021-03-06 05:20] LABS: Hematocrit 29.3 % (37.0-47.0); Hemoglobin 9.7 g/dL (12.0-15.0); Mean Corpuscular HGB Conc 33.1 g/dl (32-36); Mean Corpuscular Hemoglobin 37.6 pg (26-34); Mean Corpuscular Volume 113.6 fl (80-100); Platelet Count Result 196 k/mm3 (150-375); Red Blood Count 2.58 M/mm3 (4.2-5.4); Red Cell Distribution Width 13.2 % (11.5-14.5)
[2021-03-06 05:32] LABS: Anion Gap 4 mmol/L (8-16); Blood Urea Nitrogen 15 mg/dL (7-17); Calcium 8.7 mg/dL (8.4-10.2); Carbon Dioxide 35 mmol/L (22-30); Chloride 97 mmol/L (98-107); Estimated CRCL calculation 54 ml/min; Estimated Glomerular Filt Rate > 60; Glucose 135 mg/dL (65-110); Potassium 3.3 mmol/L (3.4-5.0); Sodium 136 mmol/L (137-145)
--- NOTE | 2021-03-06 06:38 | ECG_ITS ---
Measurements Intervals [place] Rate: 63 P: 64 HI: 224 QRS: 14 QRSD: 147 T: 40 QT: 515 QTc: 528 Interpretive Statements SINUS RHYTHM WITH SINUS ARRHYTHMIA WITH FIRST DEGREE AV BLOCK RIGHT BUNDLE BRANCH BLOCK INFERIOR INFARCT, AGE INDETERMINATE ABNORMAL ECG Electronically Signed On 03-06-2021 14:13:37 CDT by Richie Scott D.O.
--- NOTE | 2021-03-06 07:25 | PM.PNCARD ---
Progress Note: A&P Assessment and Plan (1) Dyspnea: Code(s): R06.00 - Dyspnea, unspecified Status: Acute Assessment and Plan: Agree with Lasix 40 mg PO daily. Start Spironolactone 12.5 mg daily to prevent rehospitalization for heart farilure (2) CAD (coronary artery disease), autologous vein bypass graft: Code(s): I25.810 - Atherosclerosis of coronary artery bypass graft(s) without angina pectoris Status: Acute Assessment and Plan: She is on aspirin and Metoprolol, start Pravastatin. (3) Elevated troponin: Code(s): R77.8 - Other specified abnormalities of plasma proteins Status: Acute Assessment and Plan: Mild and flat. Probably related to volume overload. (4) PAT (paroxysmal atrial tachycardia): Code(s): I47.1 - Supraventricular tachycardia Status: Acute Assessment and Plan: Stable rhythm on Amiodarone PO. (5) PVT (paroxysmal ventricular tachycardia): Code(s): I47.2 - Ventricular tachycardia Status: Acute Assessment and Plan: Stable rhythm on Amiodarone. Received Amiodarone drip for 24 hours. Currently on low dose Amiodarone 200 mg daily due to some prolongation of QT interval. EKG to check QT interval. 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 On Lasix 40 mg PO daily. Echo showed EF 35-40%, grade I diastolic dysfunction, mod . On Toprol. Start Losartan 25 mg daily. Assess oxygen requirements and if OK may d/c home from cardiology standpoint and to f/u with me in 1 week. (7) Dyslipidemia: Code(s): E78.5 - Hyperlipidemia, unspecified Status: Acute Assessment and Plan: LDL 120. Start Pravastatin 10 mg daily. (8) Aortic stenosis: Code(s): I35.0 - Nonrheumatic aortic (valve) stenosis Status: Acute Assessment and Plan: Moderate. Stable. Subjective Date/time seen: 03/06/21 07:25 Denies sob. Has same right chest twinges. Exam Const: General: cooperative, healthy appearing, comfortable, alert and confusion Resp: Auscultation: clear to auscultation bilaterally, no crackles, no rales, no rhonchi and no wheezes Cardio: Jugular venous distension: JVD present Rate: regular rate Rhythm: regular rhythm Heart sounds: no murmurs GI: GI Palp: No abdominal tenderness and Yes Soft to palpation Neuro: General: oriented to person, No oriented to place and oriented to time Extrem: Right lower extremity: no edema Left lower extremity: no edema Objective Data Vital Signs Vital Signs: Vital Signs - 24 hr 03/05/21 08:00 03/05/21 10:00 03/05/21 10:21 Temperature 98.3 F Pulse Rate 64 66 70 Respiratory Rate 20 Blood Pressure 155/77 H Pulse Oximetry 100 03/05/21 10:25 03/05/21 12:00 03/05/21 14:00 Temperature 98.3 F Pulse Rate 76 80 72 Respiratory Rate 22 H Blood Pressure 117/54 L Pulse Oximetry 100 03/05/21 16:00 03/05/21 18:00 03/05/21 19:50 Temperature 98.4 F 98.5 F Pulse Rate 65 68 70 Respiratory Rate 22 H 15 Blood Pressure 135/62 116/49 L Pulse Oximetry 100 97 03/05/21 20:00 03/05/21 20:45 03/05/21 22:00 Temperature Pulse Rate 68 61 68 Respiratory Rate Blood Pressure Pulse Oximetry 96 03/05/21 23:32 03/06/21 00:00 03/06/21 02:00 Temperature 97.5 F L Pulse Rate 67 63 65 Respiratory Rate 16 Blood Pressure 142/59 H Pulse Oximetry 96 03/06/21 03:23 03/06/21 04:00 03/06/21 06:00 Temperature 98 F Pulse Rate 64 68 61 Respiratory Rate 16 Blood Pressure 147/46 H Pulse Oximetry 97 Intake/Output Intake/Output: Intake & Output 03/03/21 03/04/21 03/05/21 03/06/21 23:59 23:59 23:59 23:59 Intake Total 120 1230 1330 200 Balance 120 1230 1330 200 Meds/Results Medications: Active Medications Generic Nam
[2021-03-06 08:14] LABS: Glucose Point of Care 147 mg/dl (65-105)
[2021-03-06] MEDS: POTASSIUM CHLORIDE 20 MEQ TABLET PO (09:19)
[2021-03-06] MEDS: ENOXAPARIN 40 MG/0.4 ML SYRINGE SUB-Q (09:20)
[2021-03-06] MEDS: ASPIRIN 81 MG ENTERIC TABLET PO (09:21)
[2021-03-06] MEDS: ACIDOPHILUS/BULGARICUS CHEWABLE TABLET 1 TABLET PO ×2 (09:21→17:44)
[2021-03-06] MEDS: METOPROLOL SUCCINATE EXT REL 25 MG TABCR PO (09:21)
[2021-03-06] MEDS: PRAVASTATIN SODIUM 10 MG TABLET PO (09:22)
[2021-03-06] MEDS: FUROSEMIDE 40 MG TABLET PO (09:22)
[2021-03-06] MEDS: THERAPEUTIC MULTIVITAMINS/MINERALS TAB (*BKC) 1 TABLET PO (09:22)
[2021-03-06] MEDS: LOSARTAN POTASSIUM 25 MG TABLET PO (09:22)
[2021-03-06] MEDS: MECLIZINE HCL 12.5 MG TABLET PO (09:22)
[2021-03-06] MEDS: GABAPENTIN 100 MG CAPSULE 200 MG PO ×2 (09:22→17:44)
[2021-03-06] MEDS: BACLOFEN 10 MG TABLET PO ×3 (09:23→17:44)
[2021-03-06] MEDS: AMIODARONE HCL 200 MG TABLET PO (09:23)
[2021-03-06] MEDS: polyethylene glycoL 3350 17 GM POWD.PACK PO (09:23)
[2021-03-06] MEDS: SPIRONOLACTONE 12.5 MG TABLET PO (09:24)
[2021-03-06 12:37] LABS: Glucose Point of Care 161 mg/dl (65-105)
--- NOTE | 2021-03-06 14:53 | PM.IMPN ---
Progress Note: A&P Assessment and Plan (1) PVT (paroxysmal ventricular tachycardia): Code(s): I47.2 - Ventricular tachycardia Status: Acute Assessment and Plan: Had an episode of stable ventricular tachycardia 03/03 Cardiology consulted, recommendations appreciated S/p amiodarone drip x24 hrs Now on amiodarone 200 mg p.o. b.i.d. x2 weeks, then 200 mg daily ECHO-->EF 35-40 %, grade I diastolic dysfunction, mod Continue Toprol Losartan initiated today per cards Tele monitoring (2) CHF (congestive heart failure): Code(s): I50.9 - Heart failure, unspecified Status: Acute Assessment and Plan: BNP elevated at 3800 with cardiomegaly and small pleural effusions on CTA ECHO-->EF 35-40 %, grade I diastolic dysfunction, mod Continue with Lasix 40 mg p.o. daily Monitor intake and output Weigh daily Heart healthy diet Wean O2 PT/OT (3) Hypoxia: Code(s): R09.02 - Hypoxemia Status: Acute Assessment and Plan: Noted to be hypoxic down to 86% on presentation to ED Suspect related to CHF. No evidence of lung disease arm pulmonary embolism on CTA Now on 3 L supplemental O2, maintaining adequate oxygenation 95% or above, wean as tolerated with goal saturation 92% or > (4) Atypical chest pain: Code(s): R07.89 - Other chest pain Status: Acute Assessment and Plan: CTA negative for PE X-ray negative for right-sided rib fracture Supportive care. Analgesics available as needed Ice and heat prn (5) Elevated troponin: Code(s): R77.8 - Other specified abnormalities of plasma proteins Status: Acute Assessment and Plan: Troponins minimally elevated, flat trend chest pain atypical Likely 2/2 CHF exacerbation Acute coronary syndrome is not suspected based on overall clinical picture Echo reviewed (6) Abnormal urinalysis: Code(s): R82.90 - Unspecified abnormal findings in urine Status: Acute Assessment and Plan: UA abnormal on presentation Incontinent, denies urinary symptoms More confused than baseline Mild leukocytosis has resolved, afebrile Continue IV ceftriaxone, started on 03/03 UC probable contamination [facility] for now (7) Type 2 diabetes mellitus: Code(s): E11.9 - Type 2 diabetes mellitus without complications Status: Acute Assessment and Plan: A1c is 7.0 Accu-Cheks, sliding scale insulin, and hypoglycemic protocol Continue home Januvia Monitor (8) Hypertension: Code(s): I10 - Essential (primary) hypertension Status: Acute Assessment and Plan: Elevated this a.m. Continue metoprolol succinate Monitor blood pressure trends (9) Moderate aortic stenosis: Code(s): I35.0 - Nonrheumatic aortic (valve) stenosis Status: Inactive Assessment and Plan: Evident on echocardiogram Cardiology consulted, pt to follow up o/p Additional Plan d/c to [facility] when O2 weaned Subjective Date/time seen: 03/06/21 14:53 Interval history: pt seen and evaluated; no acute events overnight; denies any new complaints; pt on 3 L O2 Review of Systems Review of Systems: All systems reviewed & are unremarkable except as noted in HPI and below Neurologic: Reports confusion Exam Const: General: no acute distress, alert, awake and confusion Orientation/consciousness: oriented to person, oriented to place, oriented to time and confusion HENMT: Head: normocephalic and atraumatic Ears: hearing grossly normal bilaterally and external ears normal Face and sinus: face symmetric Mouth: Yes Normal oral and palatal mucosa present Eyes: Pupils: Equal, round and reactive pupils present EOM: EOMs intact bilaterally Neck: Neck: full ROM, trachea midline and no JVD Resp: Auscultation: diminished lung sounds Cardio: Jugular venous distension: no JVD Rate: regular rate Rhythm: regular rhythm Heart sounds: S1 normal heart
[2021-03-06 16:28] LABS: Glucose Point of Care 125 mg/dl (65-105)
[2021-03-06 20:48] LABS: Glucose Point of Care 187 mg/dl (65-105)
[2021-03-07] VITALS (8 sets, daily range): BP systolic 105–131; BP diastolic 47–56; PULSE 63–73; RESP 16–20; TEMP 35.8–36.8; O2SAT 92–95
--- NOTE | 2021-03-07 00:49 | PC.NURSE ---
This patient, Shireen Couch, was transferred to [[id number] ] on 03/07/21 at 0048. Personal belongings sent with patient. Report given to [ Treva Schultz]. Appropriate documentation sent with patient.
--- NOTE | 2021-03-07 01:16 | PC.NURSE ---
Received pt from IMU per bed. Reoriented to room, call light in hand and bed alarm activated.
[2021-03-07 05:41] LABS: Anion Gap 4 mmol/L (8-16); Blood Urea Nitrogen 14 mg/dL (7-17); Calcium 8.7 mg/dL (8.4-10.2); Carbon Dioxide 34 mmol/L (22-30); Chloride 99 mmol/L (98-107); Estimated CRCL calculation 54 ml/min; Estimated Glomerular Filt Rate > 60; Glucose 148 mg/dL (65-110); Potassium 3.7 mmol/L (3.4-5.0); Sodium 137 mmol/L (137-145)
[2021-03-07 05:43] LABS: Hematocrit 28.6 % (37.0-47.0); Hemoglobin 9.5 g/dL (12.0-15.0); Mean Corpuscular HGB Conc 33.2 g/dl (32-36); Mean Corpuscular Hemoglobin 37.5 pg (26-34); Mean Platelet Volume 12.7 fl (7.4-10.4); Platelet Count Result 209 k/mm3 (150-375); Red Blood Count 2.53 M/mm3 (4.2-5.4); Red Cell Distribution Width 13.3 % (11.5-14.5); White Blood Count 3.4 K/mm3 (4.5-10.0)
[2021-03-07 08:16] LABS: Glucose Point of Care 134 mg/dl (65-105)
[2021-03-07] MEDS: GABAPENTIN 100 MG CAPSULE 200 MG PO (08:17)
[2021-03-07] MEDS: MECLIZINE HCL 12.5 MG TABLET PO (08:17)
[2021-03-07] MEDS: SPIRONOLACTONE 12.5 MG TABLET PO (08:17)
[2021-03-07] MEDS: ENOXAPARIN 40 MG/0.4 ML SYRINGE SUB-Q (08:17)
[2021-03-07] MEDS: LOSARTAN POTASSIUM 25 MG TABLET PO (08:17)
[2021-03-07] MEDS: polyethylene glycoL 3350 17 GM POWD.PACK PO (08:17)
[2021-03-07] MEDS: THERAPEUTIC MULTIVITAMINS/MINERALS TAB (*BKC) 1 TABLET PO (08:18)
[2021-03-07] MEDS: AMIODARONE HCL 200 MG TABLET PO (08:18)
[2021-03-07] MEDS: METOPROLOL SUCCINATE EXT REL 25 MG TABCR PO (08:18)
[2021-03-07] MEDS: BACLOFEN 10 MG TABLET PO ×2 (08:19→13:26)
[2021-03-07] MEDS: ASPIRIN 81 MG ENTERIC TABLET PO (08:19)
[2021-03-07] MEDS: ACIDOPHILUS/BULGARICUS CHEWABLE TABLET 1 TABLET PO (08:19)
[2021-03-07] MEDS: PRAVASTATIN SODIUM 10 MG TABLET PO (08:19)
[2021-03-07] MEDS: FUROSEMIDE 40 MG TABLET PO (08:19)
[2021-03-07 11:54] LABS: Glucose Point of Care 138 mg/dl (65-105)
--- NOTE | 2021-03-07 12:27 | PC.NURSE ---
pt's daughter, Sally, called wanting an update. I returned Sally's call and informed her that the hospitalist had submitted the discharge order so I would begin the process; informed her that pt had been weaned from oxygen last night; Sally had questions about pt getting a COVID booster shot which I informed her that we do not do that here
[2021-03-07] MEDS: ACETAMINOPHEN 500 MG TABLET PO (13:26)
--- NOTE | 2021-03-07 14:16 | PM.DS ---
DS: Admitting Diagnosis Discharge Date 03/07/2021 Admitting Diagnosis Atypical chest pain DS: Discharge Diagnosis Discharge Diagnosis (1) PVT (paroxysmal ventricular tachycardia): Code(s): I47.2 - Ventricular tachycardia Status: Acute Assessment and Plan: Had an episode of stable ventricular tachycardia 03/03 Cardiology consulted, recommendations appreciated S/p amiodarone drip x24 hrs Now on amiodarone 200 mg p.o. b.i.d. x2 weeks, then 200 mg daily ECHO-->EF 35-40 %, grade I diastolic dysfunction, mod Continue Toprol Losartan initiated today per cards Tele monitoring (2) CHF (congestive heart failure): Code(s): I50.9 - Heart failure, unspecified Status: Acute Assessment and Plan: BNP elevated at 3800 with cardiomegaly and small pleural effusions on CTA ECHO-->EF 35-40 %, grade I diastolic dysfunction, mod Continue with Lasix 40 mg p.o. daily Monitor intake and output Weigh daily Heart healthy diet Wean O2 PT/OT (3) Hypoxia: Code(s): R09.02 - Hypoxemia Status: Acute Assessment and Plan: Noted to be hypoxic down to 86% on presentation to ED Suspect related to CHF. No evidence of lung disease arm pulmonary embolism on CTA Now on 3 L supplemental O2, maintaining adequate oxygenation 95% or above, wean as tolerated with goal saturation 92% or > (4) Atypical chest pain: Code(s): R07.89 - Other chest pain Status: Acute Assessment and Plan: CTA negative for PE X-ray negative for right-sided rib fracture Supportive care. Analgesics available as needed Ice and heat prn (5) Elevated troponin: Code(s): R77.8 - Other specified abnormalities of plasma proteins Status: Acute Assessment and Plan: Troponins minimally elevated, flat trend chest pain atypical Likely 2/2 CHF exacerbation Acute coronary syndrome is not suspected based on overall clinical picture Echo reviewed (6) Abnormal urinalysis: Code(s): R82.90 - Unspecified abnormal findings in urine Status: Acute Assessment and Plan: UA abnormal on presentation Incontinent, denies urinary symptoms More confused than baseline Mild leukocytosis has resolved, afebrile Continue IV ceftriaxone, started on 03/03 UC probable contamination She has been on Macrobid at [facility] for UTI. Hold for now (7) Type 2 diabetes mellitus: Code(s): E11.9 - Type 2 diabetes mellitus without complications Status: Acute Assessment and Plan: A1c is 7.0 Accu-Cheks, sliding scale insulin, and hypoglycemic protocol Continue home Januvia Monitor (8) Hypertension: Code(s): I10 - Essential (primary) hypertension Status: Acute Assessment and Plan: Elevated this a.m. Continue metoprolol succinate Monitor blood pressure trends DS: Summary Hospital Course Hospital Course: Shireen Couch is an 85 year old female with a history of CAD, HTN, type 2 diabetes mellitus, and frequent urinary tract infections who is seen in follow up for right sided chest pain. She is occasionally confused but overall was able to provide reasonably clear history. She reported bringing her friend in, but somehow she became the patient instead. Aside from that, she was able to answer all questions appropriately on admission. She describes intermittent right-sided chest pain that is stabbing in nature, worsened when she takes a movement, deep breath or cough,ongoing for 2-3 days. She reported no alleviating factors. She had no associated shortness of breath, palpitations, sweats, arm, shoulder, or jaw pain, or nausea/vomiting. She denied shortness of breath. She denied similar symptoms in the past. On presentation to the emergency department, she was tachycardic and tachypneic, her BP was elevated, WBC 13.9, BNP 3800, troponin 0.097, additional laboratory workup unremarkable. CTA showed cardiomegaly with small bilateral pleural effusions and no evidence of pulmon
[2021-03-07 15:11] LABS: EDCOVIDSCREEN Negative (Negative)
== END 2021-03-07 16:06 | DRG 308 ==
LOC: ANHED 03-03 00:34 → ANHIMU 03-03 02:52 → ANH2MED 03-07 13:39 → ANHIMU 03-10 12:32
PROVIDERS: Physician Assistant; Admitting Provider Internal Medicine; Emergency Provider Emergency Medicine; PCP Family Medicine; Visit Provider Nurse Practitioner Adult Health
DX: I47.2 Ventricular tachycardia (principal); I50.43 Acute on chronic combined systolic (congestive) and diastolic (congestive) heart failure; I25.810 Atherosclerosis of coronary artery bypass graft(s) without angina pectoris; I11.0 Hypertensive heart disease with heart failure; R07.89 Other chest pain; Z20.822 Contact with and (suspected) exposure to COVID-19; I35.0 Nonrheumatic aortic (valve) stenosis; R77.8 Other specified abnormalities of plasma proteins; R09.02 Hypoxemia; E78.5 Hyperlipidemia, unspecified; R82.90 Unspecified abnormal findings in urine; E11.9 Type 2 diabetes mellitus without complications; Z66 Do not resuscitate; Z79.899 Other long term (current) drug therapy; Z87.440 Personal history of urinary (tract) infections; Z95.1 Presence of aortocoronary bypass graft
CPT/HCPCS: 36415; 51701; 71101; 71275; 80048; 80053; 80061; 81001; 82948; 83036; 83690; 83735; 83880; 84100; 84443; 84484; 85025; 85027; 85610; 85730; 87086; 87088; 87426; 93005; 93970; 96365; 96366; 96368; 96372; 96375; 97110; 97162; 97165; 97530; 99285; A9270; C8929; C9803; G0378; J0282; J0696; J1650; J1815; Q9957; Q9967

== ENCOUNTER 2021-03-10 08:12 | Inpatient (IN) | payer MEDICARE, OTHER, MEDICAID, SELFPAY ==
[2021-03-10] VITALS (27 sets, daily range): BP systolic 129–163; BP diastolic 40–64; PULSE 65–83; RESP 15–20; TEMP 36–36.5; O2SAT 90–95; BMI 30.7
--- NOTE | ~2021-03-10 | CT_ITS ---
EXAMINATION: CT brain wo con DATE: 03/10/2021 08:57 INDICATION: Altered mental status. Confusion and right-sided weakness. TECHNIQUE: Computed tomography (CT) of the head was performed without intravenous contrast. Sagittal and coronal reconstructions were performed. The mA was adjusted according to patient size. Iterative reconstruction technique was employed. The dose-length product was 605.33 mGy-cm. COMPARISON: None FINDINGS: No acute intracranial hemorrhage, acute infarction or abnormal extra axial fluid collection. There is mild scattered white matter hypoattenuation consistent with chronic small vessel ischemic disease. S ymmetric prominence of the sulci and ventricles consistent with moderate age-appropriate diffuse cere bral volume loss. No mass/mass effect. The orbits, paranasal sinuses and mastoid air cells are normal . IMPRESSION: 1. No acute intracranial process. 2. Age-related changes including moderate diffuse volume loss and mild scattered white matter hypoatt enuation consistent with chronic small vessel ischemic disease. Reviewed, dictated and finalized at location A. IMPRESSION: 1. No acute intracranial process. 2. Age-related changes including moderate diffuse volume loss and mild scattere d white matter hypoattenuation consistent with chronic small vessel ischemic di sease.
--- NOTE | ~2021-03-10 | XR_ITS ---
EXAMINATION: XR chest 1V portable EXAM DATE: 03/10/2021 08:28 INDICATION: Transient alteration of awareness. TECHNIQUE: Portable AP frontal chest x-ray was obtained. Correlation is made to CT pulmonary scan 02/11. FINDINGS: Sternotomy wires are present without findings to suggest sternal dehiscence. There is cardi omegaly. Small right pleural effusion. Small amount of basilar atelectasis. No pneumothorax. The bone s are osteopenic. There are bony degenerative changes. IMPRESSION: 1. Cardiomegaly, small right pleural effusion. 2. Bibasilar subsegmental atelectasis. Reviewed, dictated and finalized at location A.
--- NOTE | ~2021-03-10 | MR_ITS ---
EXAMINATION: MR brain/brain stem wo/w con EXAM DATE: 03/11/2021 13:13 INDICATION: Altered mental status. TECHNIQUE: Magnetic resonance imaging (MRI) of the brain/brain stem obtained without contrast. Sagit deven T1, axial diffusion, gradient echo (T2*), T1, T2, FLAIR sequences obtained. Patient was then inj ected with 15 cc intravenous Multihance contrast. Axial and coronal postcontrast T1 weighted sequence s obtained. Correlation is made to head CT from 03/10. FINDINGS: There are no areas of restricted diffusion to suggest acute infarction. There is no acute hemorrhage seen on the T2*, a hemosiderin sensitive sequence. No intraparenchymal brain mass lesion. There is mild to moderate periventricular and subcortical T2/FLAIR signal hyperintensity, nonspecifi c but probably related to small vessel ischemic disease (microangiopathy). There is ventricular pro minence out of proportion to sulci which is suspected most likely central atrophy rather than hydroce phalus. Normal pressure hydrocephalus cannot be excluded (clinical triad ataxia/gait disturbance, de mentia, urinary incontinence). There are no extra-axial collections. Flow voids are seen in the ce rebral arteries on the T2-weighted sequences consistent with their expected patency. The orbits are unremarkable. Soft tissue is unremarkable. There are no areas of abnormal enhancement on the post c ontrast images. IMPRESSION: 1. 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 2. Dilated ventricles, could be Central atrophy vs NPH not excludable. 3. No acute intracranial findings. Reviewed, dictated and finalized at location A.
--- NOTE | ~2021-03-10 | US_ITS ---
EXAMINATION: US carotid duplex BI EXAM DATE: 03/11/2021 11:10 INDICATION: Altered mental status, transient alteration of awareness. TECHNIQUE: Grayscale, color and pulsed Doppler images of the cervical carotid arteries were obtained . The degree of vessel stenosis is placed in one of the following categories: normal, <50% stenosis, 50-69% stenosis, >=70% stenosis but less than near-occlusion, near-occlusion, or occlusion. Note that percent stenosis relative to normal distal artery lumen diameter is indirectly measured from velocit y measurements as described by Román, et al. Radiology 2003; 229:340-346. There is no prior study fo r comparison. FINDINGS: RIGHT SIDE: Right common carotid artery peak systolic velocity (PSV in cm/s): 63 Right bulb/internal carotid artery peak systolic velocity (PSV in cm/s): 82 Right internal carotid artery end diastolic velocity (EDV in cm/s): 14 Right ICA/CCA peak systolic ratio: 1.5 Right external carotid artery peak systolic velocity (PSV in cm/s): 64 Right vertebral artery antegrade flow: yes There is moderate carotid bulb plaque. Velocity and Doppler waveforms in the common and internal carotid arteries is normal. LEFT SIDE: Left common carotid artery peak systolic velocity (PSV in cm/s): 95 Left bulb/internal carotid artery peak systolic velocity (PSV in cm/s): 76 Left internal carotid artery end diastolic velocity (EDV in cm/s): 22 Left ICA/CCA peak systolic ratio: 1.2 Left external carotid artery peak systolic velocity (PSV in cm/s): 116 Left vertebral artery antegrade flow: yes There is moderate carotid bulb plaque. Velocity and Doppler waveforms in the common and internal carotid arteries is normal. IMPRESSION: 1. Less than 50 percent stenosis in the right internal carotid artery. 2. Less than 50 percent stenosis in the left internal carotid artery. Reviewed, dictated and finalized at location A.
--- NOTE | 2021-03-10 08:17 | ECG_ITS ---
Measurements Intervals [place] Rate: 69 P: 55 ID: [id number] QRS: 23 QRSD: 138 T: 28 QT: 441 QTc: 476 Interpretive Statements SINUS RHYTHM WITH FIRST DEGREE AV BLOCK RIGHT BUNDLE BRANCH BLOCK INFERIOR INFARCT, AGE INDETERMINATE BASELINE ARTIFACT- I, III, V1-V2 ABNORMAL ECG Electronically Signed On 03-10-2021 8:23:31 CDT by Richie Scott D.O.
--- NOTE | 2021-03-10 08:18 | ED.AMS ---
HPI - Altered Mental Status General Chief Complaint: Altered Mental Status Stated Complaint: AMS Time Seen by Provider: 03/10/21 08:14 Source: RN notes reviewed History of Present Illness HPI narrative: Patient presents emergency department from [facility] via EMS for altered mental status. The patient was last seen at approximately 1900 on the evening of 03/09/2021. This morning when staff came to check on her the patient was nonverbal she is normally ANO x3 patient this time has her eyes open she will nod her head yes or no to answer questions but is nonverbal and is unable to give any other history patient denies any pain at this time Related Data Home Medications Medication Instructions Recorded Confirmed Januvia 100 mg PO DAILY 03/03/21 03/03/21 acetaminophen 500 mg PO Q6H PRN 03/03/21 03/03/21 alum-mag hydroxide-simeth 30 ml PO Q6H PRN 03/03/21 03/03/21 [Rani-Mox Antacid-Antigas] aspirin 81 mg PO DAILY 03/03/21 03/03/21 baclofen 10 mg PO TID 03/03/21 03/03/21 estradiol 1 applic VAGINAL PRN 03/03/21 03/03/21 gabapentin 200 mg PO BID 03/03/21 03/03/21 meclizine 12.5 mg PO BID PRN 03/03/21 03/03/21 metoprolol succinate 25 mg PO DAILY 03/03/21 03/03/21 multivitamin with minerals 1 tablet PO DAILY 03/03/21 03/03/21 omeprazole 20 mg PO BID 03/03/21 03/03/21 ondansetron 4 mg PO Q8H PRN 03/03/21 03/03/21 polyethylene glycol 3350 [Miralax] 17 g PO DAILY 03/03/21 03/03/21 sennosides-docusate sodium 1 tablet PO DAILY 03/03/21 03/03/21 [Senexon-S] Allergies Allergy/AdvReac Type Severity Reaction Status Date / Time codeine Allergy Unknown Verified 03/10/21 12:05 metformin Allergy Unknown Verified 03/10/21 12:05 lisinopril AdvReac Unknown Verified 03/10/21 12:05 morphine AdvReac Dizziness Verified 03/10/21 12:05 Review of Systems Review of Systems: ROS unobtainable: Yes unobtainable due to medical condition (Altered mental status) [facility] Past Medical History Medical History Cellulitis of perineum Coronary artery disease Frequent UTI Hypertension Moderate aortic stenosis Type 2 diabetes mellitus Wound abscess Surgical History Surgical History (Updated 03/03/21 @ 15:49 by Fadumo Collado PA-C) History of coronary artery bypass graft 2007 Family History Family History Father Heart disease Mother Alzheimer disease Social History Social History Social History: Ms. Couch lives at [facility]. 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 Yan Scott. She has 2 adult children. She designates her daughter, Sally, as her surrogate decision maker. She would like to be DNR. Smoking status: Never smoker Alcohol intake: never Substance use: never Spiritual care concerns: No Exam Narrative: APPEARANCE: Awake in bed with eyes open HEENT: Normocephalic, atraumatic, OMM, TMs clear bilaterally EYES: PERRL, EOMI NECK: Supple, nontender, full range of motion without pain, no meningismus RESPIRATORY: No respiratory distress, clear to auscultation bilaterally with no rhonchi wheezing or rales CARDIOVASCULAR: RRR s murmur ABDOMINAL: Soft, nontender, nondistended MUSCULOSKELETAL: Moves all extremities. No clubbing, cyanosis or edema. NEURO: Awake in bed with eyes open she will nod yes and no to questions she is able to squeeze both my hands when asked to squeeze but does not cook pickled meat her arms or her legs bilaterally when I asked her to cook pickled meat her arms or legs she shakes her head no, patient does not smile or stick her tongue out to me when asked no facial droop noted nonverbal SKIN:: Warm, dry. Normal Color Course Course Emergency Course: Discussed with Dr. Forbes who accepts admission at this time Discussed with patient and family results of workup and diagnosis. Discussed need for admission. P
[2021-03-10 08:33] LABS: Glucose Point of Care 140 mg/dl (65-105)
[2021-03-10 09:00] LABS: Add Urine Microscopic? YES; Appearance Urine Cloudy (Clear); Bacteria Urine Trace /hpf; Bilirubin Urine Negative (Negative); Blood Urine Negative (Negative); Color Urine Yellow (Yellow); Glucose Urine UA Negative (Negative); Ketones Urine Negative (Negative); Leukocyte Esterase Ur 3+ LEU/UL (Negative); Mucus Urine Rare /lpf; Nitrate Urine Negative (Negative); Protein Urine Negative (Negative); RBC Urine 21-50 /hpf (0-2); Specific Grav Ur 1.014 (1.001-1.035); Squamous Epithelial Cell Urine Moderate /hpf (Few); Urobilinogen Urine Negative mg/dL (<2.0); WBC Urine >75 /hpf
[2021-03-10 09:04] LABS: Anion Gap 8 mmol/L (8-16); Blood Urea Nitrogen 14 mg/dL (7-17); Calcium 8.8 mg/dL (8.4-10.2); Carbon Dioxide 31 mmol/L (22-30); Chloride 102 mmol/L (98-107); Estimated CRCL calculation 45 ml/min; Estimated Glomerular Filt Rate > 60; Glucose 151 mg/dL (65-110); Sodium 141 mmol/L (137-145)
[2021-03-10 09:08] LABS: Partial Thromboplastin Time 21.4 SECONDS (22.3-36.8); Prothrombin Time 12.9 Seconds (11.1-14.7)
[2021-03-10 09:14] LABS: Troponin I < 0.012 ng/mL (0.000-0.034)
[2021-03-10 09:29] LABS: Basophils Percent Auto 1.1 % (0.2-1.2); Eosinophils Absolute Auto 0.1 K/mm3 (0-0.3); Eosinophils Percent Auto 3.8 % (0-4.4); Hematocrit 30.9 % (37.0-47.0); Hemoglobin 10.1 g/dL (12.0-15.0); Immature Granulocyte Absolute 0.06 K/mm3 (0.00-0.031); Immature Granulocyte Percent A 1.6 % (0-0.5); Lymphocytes Absolute Auto 1.59 K/mm3 (0.9-3.2); Lymphocytes Percent Auto 43.1 % (18.3-44.2); Mean Corpuscular HGB Conc 32.7 g/dl (32-36); Mean Corpuscular Hemoglobin 37.7 pg (26-34); Mean Corpuscular Volume 115.3 fl (80-100); Mean Platelet Volume 12.6 fl (7.4-10.4); Monocytes Absolute Auto 0.2 K/mm3 (0.1-0.6); Monocytes Percent Auto 5.4 % (2.6-8.5); Neutrophils Absolute Auto 1.7 K/mm3 (1.3-6.7); Platelet Count Result 227 k/mm3 (150-375); Red Blood Count 2.68 M/mm3 (4.2-5.4); Red Cell Distribution Width 13.6 % (11.5-14.5); White Blood Count 3.7 K/mm3 (4.5-10.0)
[2021-03-10 09:49] LABS: Lactic Acid Reflex 0.9 mmol/L (0.7-2.1)
--- NOTE | 2021-03-10 11:55 | ADMGEN ---
This patient, Shirene Couch, was admitted to [facility] Surg Room 314-01 at 1130. Patient/family oriented to hospital policies and general routines including ID bracelet, bed and alarms, visiting hours, pain management, procedures, bathroom and other care routines, personal items, smoking policy, room service/diet, and visiting hours. Information on how to activate the Rapid Response Team has been discussed. Patient/Family are encouraged to report perceived risks to care and to ask questions if they do not understand what they are told or what they should do.
--- NOTE | 2021-03-10 15:30 | PM.IMHP ---
H&P: HPI History of Present Illness Date/Time: 03/10/21 15:30 PATIENT HAS BEEN PLACED IN OBSERVATION STATUS. Chief Complaint: Altered mental status Narrative: 85-year-old female with CAD, CHF and diabetes was brought in for altered mental status. Patient was hospitalized here on 03/02 for right-sided chest pain and was found to be hypoxic in the ED; CTA showed cardiomegaly with small bilateral pleural effusions and no evidence of pulmonary embolism. She had elevated Troponinin to 0.117. She was diagnosed with acute on chronic systolic and diastolic CHF and responded well to diuresis. Echo showed an EF 35-40%, grade I diastolic dysfunction and moderate . She was also found to have paroxysmal ventricular tachycardia and paroxysmal atrial tachycardia treated with an amiodarone drip. She was transitioned to oral Amiodarone but dose cut back to Amio 200mg daily due to EKG showing QTc 528. She had an abnormal urinalysis but UCx was negative. She was treated with ceftriaxone for 5 days. She was discharged on 03/07/21. [facility], patient has been feeling well. Denies any vision changes, hearing loss, odynophagia or dysphagia. No shortness of breath, chest pain or palpitations. She does have a chronic dry cough. No nausea, vomiting, abdominal pain, diarrhea, dysuria, hematuria, urinary frequency or urgency. Does have occasional constipation. She complains of back pain but this is old without significant change. She denies weakness but then states that she has chronic left leg weakness from what she believes was an old stroke. She does complain of frontal headache at times that are frequent treated with Tylenol with some benefit. She went to bed last evening (03/09/21) and she was last seen okay around 1900. This morning, staff came to check on the patient and patient was nonverbal. She has no memory of the event or any preceding symptoms. The last thing she remembers was being in the ambulance. There has been no recent medication changes. She is on oral medications for diabetes and denies any history of low sugar. She is not on insulin. She was not diaphoretic. No history of seizures. She is alert but mildly confused but does provide reasonably good history. EMS was called and found a glucose of 156 and patient with diffuse weakness and possible right facila droop. She was brought to the emergency room for evaluation. In the ED, patient was hemodynamically stable. She was nonverbal and appeared to be alert but not willing/able to follow commands but facial droop noted. She mild leukopenia but otherwise labs were unrevealing. Urinalysis was consistent with UTI. Troponin was negative. Lactic acid was normal. Chest x-ray showed cardiomegaly and small right pleural effusion. Head CT showed no acute intracranial process. EKG showed normal sinus rhythm with first-degree AV block, right bundle-branch block and age-indeterminate inferior infarct. QTC was 476. EKG was reviewed personally and no significant change from prior EKGs. Patient was treated with Rocephin and IV fluids and admitted for further care. Since presentation to the ED, patient's neurologic status has improved. Review of Systems Review of Systems: All systems reviewed & are unremarkable except as noted in HPI and below PMFSH Past Medical History Medical History (Updated 03/10/21 @ 16:10 by Alfrdeo Clement MD) Cellulitis of perineum CHF (congestive heart failure) Coronary artery disease Frequent UTI Hypertension Moderate aortic stenosis PAT (paroxysmal atrial tachycardia) PVT (paroxysmal ventricular tachycardia) Type 2 diabetes mellitus Wound abscess Surgical History Surgical History History of coronary artery bypass graft 2007 Family History Family History Father Heart disease Mother Alzheimer disease S
[2021-03-10] MEDS: SODIUM CHLORIDE 0.9% IV 1,000 ML 80 ML IV CONT (17:06)
[2021-03-10] MEDS: PANTOPRAZOLE 40 MG TABLET PO (17:09)
[2021-03-10] MEDS: METOPROLOL SUCCINATE EXT REL 25 MG TABCR PO (17:09)
[2021-03-10] MEDS: BACLOFEN 10 MG TABLET PO (17:09)
[2021-03-10] MEDS: GABAPENTIN 100 MG CAPSULE 200 MG PO (17:09)
[2021-03-10] MEDS: ASPIRIN 81 MG ENTERIC TABLET PO (17:10)
[2021-03-10 17:58] LABS: Glucose Point of Care 170 mg/dl (65-105)
[2021-03-10] MEDS: ACETAMINOPHEN 500 MG TABLET PO (19:23)
[2021-03-10 21:35] LABS: Glucose Point of Care 128 mg/dl (65-105)
[2021-03-11] VITALS (7 sets, daily range): BP systolic 116–149; BP diastolic 42–63; PULSE 56–65; RESP 16–20; TEMP 36.1–36.6; O2SAT 94–100
[2021-03-11] MEDS: SODIUM CHLORIDE 0.9% IV 1,000 ML 80 ML IV CONT (05:33)
[2021-03-11 06:56] LABS: Basophils Percent Auto 0.9 % (0.2-1.2); Eosinophils Absolute Auto 0.1 K/mm3 (0-0.3); Eosinophils Percent Auto 3.8 % (0-4.4); Hematocrit 30.6 % (37.0-47.0); Hemoglobin 9.7 g/dL (12.0-15.0); Immature Granulocyte Absolute 0.03 K/mm3 (0.00-0.031); Immature Granulocyte Percent A 0.9 % (0-0.5); Lymphocytes Absolute Auto 1.49 K/mm3 (0.9-3.2); Lymphocytes Percent Auto 43.4 % (18.3-44.2); Mean Corpuscular HGB Conc 31.7 g/dl (32-36); Mean Corpuscular Volume 116.8 fl (80-100); Mean Platelet Volume 12.1 fl (7.4-10.4); Monocytes Absolute Auto 0.2 K/mm3 (0.1-0.6); Neutrophils Absolute Auto 1.5 K/mm3 (1.3-6.7); Platelet Count Result 232 k/mm3 (150-375); Red Blood Count 2.62 M/mm3 (4.2-5.4); Red Cell Distribution Width 13.6 % (11.5-14.5); White Blood Count 3.4 K/mm3 (4.5-10.0)
[2021-03-11 07:05] LABS: Alanine Aminotransferase 22 U/L (4-35); Alkaline Phosphatase 59 U/L (38-126); Anion Gap 7 mmol/L (8-16); Aspartate Amino Transferase 32 U/L (14-36); Bilirubin,Total 0.5 mg/dL (0.2-1.3); Blood Urea Nitrogen 10 mg/dL (7-17); Calcium 8.7 mg/dL (8.4-10.2); Carbon Dioxide 29 mmol/L (22-30); Chloride 105 mmol/L (98-107); Estimated CRCL calculation 51 ml/min; Estimated Glomerular Filt Rate > 60; Glucose 142 mg/dL (65-110); Magnesium 1.9 mg/dL (1.6-2.3); Phosphorus 3.2 mg/dL (2.5-4.5); Potassium 3.9 mmol/L (3.4-5.0); Sodium 141 mmol/L (137-145)
[2021-03-11 07:06] LABS: Ammonia < 9 umol/L (9-30)
[2021-03-11 07:49] LABS: Iron 139 ug/dL (37-170)
[2021-03-11 07:59] LABS: Percent Iron Saturation 57 % (20-50)
--- NOTE | 2021-03-11 08:00 | ECG_ITS ---
Measurements Intervals [place] Rate: 68 P: 48 ND: 248 QRS: 30 QRSD: 138 T: 28 QT: 453 QTc: 485 Interpretive Statements SINUS RHYTHM WITH FIRST DEGREE AV BLOCK RIGHT BUNDLE BRANCH BLOCK INFERIOR INFARCT, AGE INDETERMINATE BASELINE ARTIFACT- V3 ABNORMAL ECG Electronically Signed On 03-11-2021 10:02:37 CDT by Rihcie Scott D.O.
[2021-03-11 08:11] LABS: Folic Acid 16.4 ng/mL (2.76->20)
[2021-03-11 08:51] LABS: Glucose Point of Care 134 mg/dl (65-105)
[2021-03-11] MEDS: AMIODARONE HCL 200 MG TABLET PO (08:52)
[2021-03-11] MEDS: METOPROLOL SUCCINATE EXT REL 25 MG TABCR PO (08:52)
[2021-03-11] MEDS: ASPIRIN 81 MG ENTERIC TABLET PO (08:53)
[2021-03-11] MEDS: FUROSEMIDE 40 MG TABLET PO (08:53)
[2021-03-11] MEDS: GABAPENTIN 100 MG CAPSULE 200 MG PO ×2 (08:53→17:31)
[2021-03-11] MEDS: SENNA/DOCUSATE SODIUM TABLET 1 TAB PO (08:53)
[2021-03-11] MEDS: BACLOFEN 10 MG TABLET PO ×3 (08:53→17:31)
[2021-03-11] MEDS: ENOXAPARIN 40 MG/0.4 ML SYRINGE SUB-Q (08:53)
[2021-03-11] MEDS: PANTOPRAZOLE 40 MG TABLET PO ×2 (08:55→17:31)
[2021-03-11] MEDS: THERAPEUTIC MULTIVITAMINS/MINERALS TAB (*BKC) 1 TABLET PO (08:55)
[2021-03-11 11:32] LABS: Glucose Point of Care 185 mg/dl (65-105)
[2021-03-11] MEDS: LOSARTAN POTASSIUM 25 MG TABLET PO (11:34)
[2021-03-11] MEDS: ACETAMINOPHEN 500 MG TABLET PO ×2 (11:36→17:31)
--- NOTE | 2021-03-11 13:40 | PCSTNOTE ---
Speech Pathologist attempted evaluation in the morning; patient with other therapies. Attempted in the afternoon and patient out of room, assuming for electrocardiogram. Will continue to attempt bedside swallow evaluation as soon as able.
--- NOTE | 2021-03-11 13:40 | PM.IMPN ---
Progress Note: A&P Assessment and Plan (1) Altered mental status: Code(s): R41.82 - Altered mental status, unspecified Status: Acute Assessment and Plan: Patient with acute onset of altered mental status. Etiology unclear. She could have had a transient low glucose. Consider also hypotension overnight. Seizure is a possibility although she does not have a history of seizures. She does have history of stroke per patient but not seen by MRI brain. Consider also seizure related to malignant cardiac rhythm - tele started this morning. Could also acute encephalopathy from UTI and Cx pending. Consider also TIA; no CVA by MRI. MRI does show possible atrophy vs NPH - she does have incontinuce but is not confused today. PT/OT to assess gait. Carotid Dopplers showing <50% stenosis bilateral ICA. Home once culture results known and negative x 2 days (2) Acute UTI: Code(s): N39.0 - Urinary tract infection, site not specified Status: Acute Assessment and Plan: UA noted. Urine culture collected. Will continue Rocephin. (3) PVT (paroxysmal ventricular tachycardia): Code(s): I47.2 - Ventricular tachycardia Status: Acute Assessment and Plan: Patient has a history of paroxysmal ventricular tachycardia noted last admission and was started on amiodarone. We continued amiodarone here. Will place on telemetry. EKG this morning showing NSR with QTc 485. (4) CHF (congestive heart failure): Code(s): I50.9 - Heart failure, unspecified Status: Acute Assessment and Plan: Patient has a history of systolic and diastolic CHF. Echo last admission showing EF 35-40%, Grade I diastolic dysfunction and moderate . Clinically appears euvolemic. metoprolol added back on admission. BP stable so will add back Losartan today. Follow. (5) Anemia: Code(s): D64.9 - Anemia, unspecified Status: Acute Assessment and Plan: Hemoglobin low but stable in the 9-10 range. She has a macrocytosis. B12, folate levels normal. Iron studies show elevated iron levels but Ammonia negative. Continue to follow. (6) Type 2 diabetes mellitus: Code(s): E11.9 - Type 2 diabetes mellitus without complications Status: Acute Assessment and Plan: A1c was 7.0 last admission. She is only on Januvia listed. No evidence of hypoglycemia prior to admission. Will monitor closely with AccuCheks covering with sliding scale. Hypoglycemia protocol will be available as needed. (7) Hypertension: Code(s): I10 - Essential (primary) hypertension Status: Acute Assessment and Plan: Blood pressure was soft (105/50) at the time of last discharge. Consider hypotension in the differential. Blood pressures been well controlled since admission here and tolerting metoprolol. Will add back Losartan. (8) Aortic stenosis: Code(s): I35.0 - Nonrheumatic aortic (valve) stenosis Status: Acute Assessment and Plan: Patient with moderate aortic stenosis with aortic valve area of 1.5 cm2. (9) DVT prophylaxis: Code(s): Z29.9 - Encounter for prophylactic measures, unspecified Status: Acute Assessment and Plan: Lovenox Additional Plan Leukopenia -white count was low last admission continues to remain in the 3000 range. ANC 1500. She may have an underlying mild dysplastic syndrome with her macrocytosis and anemia. Platelet count normal. Continue to monitor. Subjective Date/time seen: 03/11/21 13:40 Interval history: 85yo female here for altered mental status. No problems overnight. Denies any chest pain or shortness of breath. No nausea or vomiting. Eating normally Exam Narrative: AF 97.6 149/63 60 16 100% ra Gen - NARD Chest - CTA bilaterally, nml RR CV - RRR S1/S2; Patient was not on telemetry overnight. Abd - Soft, NT/ND, Positive BS Ext - No pedal edema Neuro - Alert and oriented x4.
--- NOTE | 2021-03-11 14:57 | PCSTNOTE ---
Please refer to the Bedside Swallow Evaluation in the EMR. Please note, silent aspiration cannot be ruled out at bedside.
[2021-03-11 16:14] LABS: Glucose Point of Care 182 mg/dl (65-105)
[2021-03-11 21:53] LABS: Glucose Point of Care 110 mg/dl (65-105)
[2021-03-12] VITALS (11 sets, daily range): BP systolic 120–139; BP diastolic 52–61; PULSE 50–77; RESP 14–18; TEMP 36.1–37.1; O2SAT 92–93
[2021-03-12 06:44] LABS: Basophils Percent Auto 0.7 % (0.2-1.2); Eosinophils Absolute Auto 0.2 K/mm3 (0-0.3); Eosinophils Percent Auto 5.2 % (0-4.4); Hematocrit 29.9 % (37.0-47.0); Hemoglobin 9.9 g/dL (12.0-15.0); Immature Granulocyte Absolute 0.18 K/mm3 (0.00-0.031); Immature Granulocyte Percent A 6.2 % (0-0.5); Lymphocytes Absolute Auto 1.43 K/mm3 (0.9-3.2); Lymphocytes Percent Auto 49.5 % (18.3-44.2); Mean Corpuscular HGB Conc 33.1 g/dl (32-36); Mean Corpuscular Hemoglobin 37.6 pg (26-34); Mean Corpuscular Volume 113.7 fl (80-100); Mean Platelet Volume 12.3 fl (7.4-10.4); Monocytes Absolute Auto 0.2 K/mm3 (0.1-0.6); Monocytes Percent Auto 7.6 % (2.6-8.5); Neutrophils Absolute Auto 0.9 K/mm3 (1.3-6.7); Neutrophils Percent Auto 30.8 % (45.5-73.1); Platelet Count Result 220 k/mm3 (150-375); Red Blood Count 2.63 M/mm3 (4.2-5.4); Red Cell Distribution Width 13.7 % (11.5-14.5); White Blood Count 2.9 K/mm3 (4.5-10.0)
[2021-03-12 07:00] LABS: Albumin Level 3.9 g/dL (3.5-5.1); Anion Gap 5 mmol/L (8-16); Blood Urea Nitrogen 10 mg/dL (7-17); Calcium 8.9 mg/dL (8.4-10.2); Carbon Dioxide 29 mmol/L (22-30); Chloride 104 mmol/L (98-107); Estimated CRCL calculation 51 ml/min; Estimated Glomerular Filt Rate > 60; Glucose 138 mg/dL (65-110); Magnesium 1.9 mg/dL (1.6-2.3); Phosphorus 3.6 mg/dL (2.5-4.5); Potassium 4.2 mmol/L (3.4-5.0); Sodium 138 mmol/L (137-145)
[2021-03-12 08:34] LABS: Glucose Point of Care 132 mg/dl (65-105)
[2021-03-12] MEDS: METOPROLOL SUCCINATE EXT REL 25 MG TABCR PO (08:54)
[2021-03-12] MEDS: ASPIRIN 81 MG ENTERIC TABLET PO (08:54)
[2021-03-12] MEDS: GABAPENTIN 100 MG CAPSULE 200 MG PO ×2 (08:56→17:23)
[2021-03-12] MEDS: ENOXAPARIN 40 MG/0.4 ML SYRINGE SUB-Q (08:56)
[2021-03-12] MEDS: THERAPEUTIC MULTIVITAMINS/MINERALS TAB (*BKC) 1 TABLET PO (08:56)
[2021-03-12] MEDS: BACLOFEN 10 MG TABLET PO ×3 (08:58→17:23)
[2021-03-12] MEDS: SENNA/DOCUSATE SODIUM TABLET 1 TAB PO (08:58)
[2021-03-12] MEDS: PANTOPRAZOLE 40 MG TABLET PO ×2 (08:58→17:22)
[2021-03-12] MEDS: polyethylene glycoL 3350 17 GM POWD.PACK PO (08:58)
[2021-03-12] MEDS: AMIODARONE HCL 200 MG TABLET PO (08:58)
[2021-03-12] MEDS: LOSARTAN POTASSIUM 25 MG TABLET PO (08:59)
[2021-03-12] MEDS: FUROSEMIDE 40 MG TABLET PO (08:59)
[2021-03-12 12:18] LABS: Glucose Point of Care 181 mg/dl (65-105)
--- NOTE | 2021-03-12 15:58 | PM.IMPN ---
Progress Note: A&P Assessment and Plan (1) Altered mental status: Code(s): R41.82 - Altered mental status, unspecified Status: Acute Assessment and Plan: Patient with acute onset of altered mental status. Etiology unclear. She could have had a transient low glucose. Consider also hypotension overnight. Seizure is a possibility although she does not have a history of seizures but serum bicarb normal. Consider also seizure related to malignant cardiac rhythm (PVT). Could also acute encephalopathy from UTI. Consider also TIA; no CVA by MRI. MRI does show possible atrophy vs NPH - she does have incontinence. PT/OT to assess gait. Carotid Dopplers showing <50% stenosis bilateral ICA. Neuro consult for assistance with the possible NPH. (2) Acute UTI: Code(s): N39.0 - Urinary tract infection, site not specified Status: Acute Assessment and Plan: UA noted. Urine culture growing ESBL EColi. Discussed with ID who felt Bactrim might be sufficient but patient with leukopenia already so reluctant to start this. Change Rocephin to Ertapenem. Place midline with plans to discharge on Ertapemen back to [place]. (3) PVT (paroxysmal ventricular tachycardia): Code(s): I47.2 - Ventricular tachycardia Status: Acute Assessment and Plan: Patient has a history of paroxysmal ventricular tachycardia noted last admission and was started on amiodarone. We continued amiodarone and Toprol XL here. EKG 03/11 showing NSR with QTc 485. Continue tele monitoring. (4) CHF (congestive heart failure): Code(s): I50.9 - Heart failure, unspecified Status: Acute Assessment and Plan: Patient has a history of systolic and diastolic CHF. Echo last admission showing EF 35-40%, Grade I diastolic dysfunction and moderate . Clinically appears euvolemic. Continue lasix. Metoprolol and losartan added back and appear to be toelrating this. Follow. (5) Anemia: Code(s): D64.9 - Anemia, unspecified Status: Acute Assessment and Plan: Hemoglobin low but stable in the 9-10 range. She has a macrocytosis. B12, folate levels normal. Iron studies show elevated iron levels but Ammonia negative. Continue to follow. (6) Type 2 diabetes mellitus: Code(s): E11.9 - Type 2 diabetes mellitus without complications Status: Acute Assessment and Plan: A1c was 7.0 last admission. She is only on Januvia listed. No evidence of hypoglycemia prior to admission. Will monitor closely with AccuCheks covering with sliding scale. Hypoglycemia protocol will be available as needed. (7) Hypertension: Code(s): I10 - Essential (primary) hypertension Status: Acute Assessment and Plan: Blood pressure was soft (105/50) at the time of last discharge. Consider hypotension in the differential. Blood pressures been well controlled since admission here and tolerting metoprolol and Losartan. (8) Aortic stenosis: Code(s): I35.0 - Nonrheumatic aortic (valve) stenosis Status: Acute Assessment and Plan: Patient with moderate aortic stenosis with aortic valve area of 1.5 cm2. Stable (9) DVT prophylaxis: Code(s): Z29.9 - Encounter for prophylactic measures, unspecified Status: Acute Assessment and Plan: Lovenox Additional Plan Leukopenia -white count was low last admission and persists. ANC 900 now. She may have an underlying mild dysplastic syndrome with her macrocytosis and anemia. B12 level okay. Platelet count normal. Amio can cause blood dyscrasia. Continue to monitor. Consider Heme consult Subjective Date/time seen: 03/12/21 15:58 Interval history: 85yo female with paroxysmal VTach, CHF and DM here for altered mental status. No CP or SOB. Eating okay. No n/v. No palpitations. Exam Narrative: AF 97.8 136/61 54 14 92% ra Gen - NARD sitting up in chair Chest - few basilar rhonchi o/w clear, nml
[2021-03-12 17:10] LABS: Glucose Point of Care 121 mg/dl (65-105)
[2021-03-12] MEDS: ERTAPENEM 1 GM/NS 50 ML 1 GM/50 ML BAG IVPB (17:21)
[2021-03-13] VITALS (11 sets, daily range): BP systolic 113–132; BP diastolic 54–60; PULSE 60–67; RESP 12–18; TEMP 36.4–36.9; O2SAT 92–94
[2021-03-13 03:50] LABS: Glucose Point of Care 139 mg/dl (65-105)
[2021-03-13 05:29] LABS: Basophils Percent Auto 0.8 % (0.2-1.2); Eosinophils Absolute Auto 0.1 K/mm3 (0-0.3); Eosinophils Percent Auto 3.4 % (0-4.4); Hematocrit 28.2 % (37.0-47.0); Hemoglobin 9.5 g/dL (12.0-15.0); Immature Granulocyte Absolute 0.02 K/mm3 (0.00-0.031); Immature Granulocyte Percent A 0.5 % (0-0.5); Lymphocytes Percent Auto 59.3 % (18.3-44.2); Mean Corpuscular HGB Conc 33.7 g/dl (32-36); Mean Corpuscular Hemoglobin 37.4 pg (26-34); Mean Platelet Volume 12.7 fl (7.4-10.4); Monocytes Absolute Auto 0.3 K/mm3 (0.1-0.6); Monocytes Percent Auto 6.4 % (2.6-8.5); Neutrophils Absolute Auto 1.2 K/mm3 (1.3-6.7); Neutrophils Percent Auto 29.6 % (45.5-73.1); Platelet Count Result 269 k/mm3 (150-375); Red Blood Count 2.54 M/mm3 (4.2-5.4); Red Cell Distribution Width 13.6 % (11.5-14.5); White Blood Count 3.9 K/mm3 (4.5-10.0)
[2021-03-13 05:40] LABS: Alanine Aminotransferase 16 U/L (4-35); Alkaline Phosphatase 58 U/L (38-126); Anion Gap 8 mmol/L (8-16); Aspartate Amino Transferase 23 U/L (14-36); Bilirubin,Total 0.5 mg/dL (0.2-1.3); Blood Urea Nitrogen 14 mg/dL (7-17); Calcium 8.9 mg/dL (8.4-10.2); Carbon Dioxide 30 mmol/L (22-30); Chloride 101 mmol/L (98-107); Estimated CRCL calculation 41 ml/min; Estimated Glomerular Filt Rate 59; Glucose 127 mg/dL (65-110); Potassium 3.8 mmol/L (3.4-5.0); Sodium 139 mmol/L (137-145)
[2021-03-13 07:44] LABS: Glucose Point of Care 154 mg/dl (65-105)
[2021-03-13] MEDS: polyethylene glycoL 3350 17 GM POWD.PACK PO (08:31)
[2021-03-13] MEDS: SENNA/DOCUSATE SODIUM TABLET 1 TAB PO (08:31)
[2021-03-13] MEDS: THERAPEUTIC MULTIVITAMINS/MINERALS TAB (*BKC) 1 TABLET PO (08:31)
[2021-03-13] MEDS: GABAPENTIN 100 MG CAPSULE 200 MG PO ×2 (08:31→16:51)
[2021-03-13] MEDS: ENOXAPARIN 40 MG/0.4 ML SYRINGE SUB-Q (08:31)
[2021-03-13] MEDS: ASPIRIN 81 MG ENTERIC TABLET PO (08:31)
[2021-03-13] MEDS: FUROSEMIDE 40 MG TABLET PO (08:32)
[2021-03-13] MEDS: BACLOFEN 10 MG TABLET PO ×3 (08:32→16:51)
[2021-03-13] MEDS: LOSARTAN POTASSIUM 25 MG TABLET PO (08:33)
[2021-03-13] MEDS: AMIODARONE HCL 200 MG TABLET PO (08:33)
[2021-03-13] MEDS: PANTOPRAZOLE 40 MG TABLET PO ×2 (08:33→16:52)
[2021-03-13] MEDS: METOPROLOL SUCCINATE EXT REL 25 MG TABCR PO (08:34)
--- NOTE | 2021-03-13 10:53 | WPDNEURCNPN ---
Assessment and Plan Additional Plan ventriculomegaly ,?central atrophy ?spinal tap will discuss with patient Consult date: 03/13/21 Time Seen: 10:30 HPI: Shireen Couch is a 85 year old female 85 years old right-handed female has been admitted to [facility] through the emergency room for the complaints of change in the mental status in addition to the ongoing history of 1. Coronary artery disease 2. Congestive heart failure 3. Diabetes mellitus 4. History of coronary artery disease with moderate aortic stenosis, paroxysmal atrial tachycardia and ventricular tachycardia, neuro consultation has been obtained because patient has been found to have ventricular low megaly on the scanning procedures documented as on MRI no acute hemorrhage no intraparenchymal brain lesion mild to moderate periventricular and subcortical signal hyperintensity related to small vessel ischemic disease with ventricular prominence out of proportion to sulci most likely with central atrophy rather than hydrocephalus but the possibility of normal pressure hydrocephalus cannot be excluded, additionally patient has been found to have hemoglobin of 9.5 MCv of 111.0 UA with 3+ leukocyte Estrace and more than 75 wbc's chemistry not significant negative for the COVID serology Review of Systems Review of Systems: All systems reviewed & are unremarkable except as noted in HPI and below PMFSH Past Medical History Medical History Cellulitis of perineum CHF (congestive heart failure) Coronary artery disease Frequent UTI Hypertension Moderate aortic stenosis PAT (paroxysmal atrial tachycardia) PVT (paroxysmal ventricular tachycardia) Type 2 diabetes mellitus Wound abscess Surgical History Surgical History History of coronary artery bypass graft 2007 Family History Family History Father Heart disease Mother Alzheimer disease Social History Social History Social History: Ms. Couch lives at [facility]. 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 Yan Scott. She has 2 adult children. She designates her daughter, Sally, as her surrogate decision maker. She requests DNR status. No tobacco, alcohol or drug use. Smoking status: Never smoker Alcohol intake: never Substance use: never Spiritual care concerns: No Meds Home Medications and Allergies Home Medications Medication Instructions Recorded Confirmed Type hydrocodone 7.5 mg-acetaminophen 1 tablet PO Q6H PRN #120 tablet 12/10/19 03/10/21 Rx 325 mg tablet Januvia 100 mg PO DAILY 03/03/21 03/10/21 History acetaminophen 500 mg PO Q6H PRN 03/03/21 03/10/21 History alum-mag hydroxide-simeth 30 ml PO Q6H PRN 03/03/21 03/10/21 History [Rani-Mox Antacid-Antigas] aspirin 81 mg PO DAILY 03/03/21 03/10/21 History baclofen 10 mg PO TID 03/03/21 03/10/21 History estradiol See Rx Instructions .ROUTE .COMPLEX 03/03/21 03/10/21 History gabapentin 200 mg PO BID 03/03/21 03/10/21 History meclizine 12.5 mg PO DAILY 03/03/21 03/10/21 History metoprolol succinate 25 mg PO DAILY 03/03/21 03/10/21 History multivitamin with minerals 1 tablet PO DAILY 03/03/21 03/10/21 History omeprazole 20 mg PO BID 03/03/21 03/10/21 History ondansetron 4 mg PO Q8H PRN 03/03/21 03/10/21 History polyethylene glycol 3350 [Miralax] 17 g PO DAILY 03/03/21 03/10/21 History sennosides-docusate sodium 1 tablet PO DAILY 03/03/21 03/10/21 History [Senexon-S] amiodarone [Pacerone] 200 mg PO DAILY@0800 30 Days #30 03/07/21 03/10/21 Rx tablet furosemide 40 mg PO DAILY #30 tablet 03/07/21 03/10/21 Rx losartan 25 mg PO DAILY #30 tablet 03/07/21 03/10/21 Rx spironolactone 12.5 mg PO DAILY 30 Days #15 tablet 03/07/21 03/10/21 Rx meclizine 12.5 mg PO BID PRN 03/10/21 03/10/21 History
[2021-03-13 12:09] LABS: Glucose Point of Care 169 mg/dl (65-105)
--- NOTE | 2021-03-13 14:33 | PM.IMPN ---
Progress Note: A&P Assessment and Plan (1) Altered mental status: Code(s): R41.82 - Altered mental status, unspecified Status: Acute Assessment and Plan: Patient with acute onset of altered mental status. Etiology unclear. She could have had a transient low glucose. Seizure is a possibility, she does not have a history of seizures. . Consider also seizure related to malignant cardiac rhythm (PVT). Could also acute encephalopathy from UTI. Consider also TIA; no CVA by MRI. MRI does show possible atrophy vs NPH - she does have incontinence. PT/OT to assess gait. Carotid Dopplers showing <50% stenosis bilateral ICA. Neuro consult for assistance with the possible NPH. Neurology recommendations appreciated and will discuss with the patient about lumbar puncture. (2) Acute UTI: Code(s): N39.0 - Urinary tract infection, site not specified Status: Acute Assessment and Plan: UA noted. Urine culture growing ESBL EColi. Discussed with ID who felt Bactrim might be sufficient but patient with leukopenia already so reluctant to start this. Continue ertapenem. She was on ceftriaxone earlier. Place midline with plans to discharge on Ertapenem back to [place]. (3) PVT (paroxysmal ventricular tachycardia): Code(s): I47.2 - Ventricular tachycardia Status: Acute Assessment and Plan: Patient has a history of paroxysmal ventricular tachycardia noted last admission and was started on amiodarone. We continued amiodarone and Toprol XL here. EKG 03/11 showing NSR with QTc 485. Continue tele monitoring. (4) CHF (congestive heart failure): Code(s): I50.9 - Heart failure, unspecified Status: Acute Assessment and Plan: Patient has a history of systolic and diastolic CHF. Echo last admission showing EF 35-40%, Grade I diastolic dysfunction and moderate . Clinically appears euvolemic. Continue lasix. Metoprolol and losartan added back and appear to be toelrating this. Continue to monitor (5) Anemia: Code(s): D64.9 - Anemia, unspecified Status: Acute Assessment and Plan: Hemoglobin low but stable in the 9-10 range. She has a macrocytosis. B12, folate levels normal. Iron studies show elevated iron levels but Ammonia negative. Continue to follow. (6) Type 2 diabetes mellitus: Code(s): E11.9 - Type 2 diabetes mellitus without complications Status: Acute Assessment and Plan: A1c was 7.0 last admission. She is only on Januvia listed. No evidence of hypoglycemia prior to admission. Will monitor closely with AccuCheks covering with sliding scale. Hypoglycemia protocol will be available as needed. (7) Hypertension: Code(s): I10 - Essential (primary) hypertension Status: Acute Assessment and Plan: Blood pressure was soft (105/50) at the time of last discharge. Blood pressures been well controlled since admission here and tolerating metoprolol and Losartan. (8) Aortic stenosis: Code(s): I35.0 - Nonrheumatic aortic (valve) stenosis Status: Acute Assessment and Plan: Patient with moderate aortic stenosis with aortic valve area of 1.5 cm2. Stable (9) DVT prophylaxis: Code(s): Z29.9 - Encounter for prophylactic measures, unspecified Status: Acute Assessment and Plan: Lovenox Additional Plan Leukopenia -white count was low last admission and persists. ANC 900 now. She may have an underlying mild dysplastic syndrome with her macrocytosis and anemia. B12 level okay. Platelet count normal. Amio can cause blood dyscrasia. Continue to monitor. Follow with [facility] worker helper as an outpatient for further workup if indicated. Subjective Date/time seen: 03/13/21 14:33 Interval history: 85yo female with paroxysmal VTach, CHF and DM here for altered mental status. She was awake and alert. She was not oriented to place. She was complaining of lower abdomina
[2021-03-13] MEDS: ERTAPENEM 1 GM/NS 50 ML 1 GM/50 ML BAG IVPB (14:51)
[2021-03-13 16:21] LABS: Glucose Point of Care 117 mg/dl (65-105)
[2021-03-14] VITALS (10 sets, daily range): BP systolic 108–130; BP diastolic 49–63; PULSE 59–67; RESP 14–18; TEMP 36–36.7; O2SAT 95–96
[2021-03-14 07:37] LABS: Glucose Point of Care 132 mg/dl (65-105)
[2021-03-14 07:44] LABS: Glucose Point of Care 132 mg/dl (65-105)
[2021-03-14] MEDS: BACLOFEN 10 MG TABLET PO ×3 (08:10→17:16)
[2021-03-14] MEDS: ENOXAPARIN 40 MG/0.4 ML SYRINGE SUB-Q (08:10)
[2021-03-14] MEDS: SENNA/DOCUSATE SODIUM TABLET 1 TAB PO (08:10)
[2021-03-14] MEDS: GABAPENTIN 100 MG CAPSULE 200 MG PO ×2 (08:10→17:16)
[2021-03-14] MEDS: polyethylene glycoL 3350 17 GM POWD.PACK PO (08:10)
[2021-03-14] MEDS: AMIODARONE HCL 200 MG TABLET PO (08:11)
[2021-03-14] MEDS: PANTOPRAZOLE 40 MG TABLET PO ×2 (08:11→17:17)
[2021-03-14] MEDS: FUROSEMIDE 40 MG TABLET PO (08:11)
[2021-03-14] MEDS: THERAPEUTIC MULTIVITAMINS/MINERALS TAB (*BKC) 1 TABLET PO (08:11)
[2021-03-14] MEDS: LOSARTAN POTASSIUM 25 MG TABLET PO (08:11)
[2021-03-14] MEDS: ASPIRIN 81 MG ENTERIC TABLET PO (08:11)
[2021-03-14] MEDS: METOPROLOL SUCCINATE EXT REL 25 MG TABCR PO (08:11)
[2021-03-14] MEDS: ACETAMINOPHEN 500 MG TABLET PO ×2 (11:09→20:18)
[2021-03-14 11:54] LABS: Glucose Point of Care 145 mg/dl (65-105)
--- NOTE | 2021-03-14 13:24 | PM.IMPN ---
Progress Note: A&P Assessment and Plan (1) Altered mental status: Code(s): R41.82 - Altered mental status, unspecified Status: Acute Assessment and Plan: Patient with acute onset of altered mental status. Etiology unclear. She could have had a transient low glucose. Seizure is a possibility, she does not have a history of seizures. . Consider also seizure related to malignant cardiac rhythm (PVT). Could also acute encephalopathy from UTI. Consider also TIA; no CVA by MRI. MRI does show possible atrophy vs NPH - she does have incontinence. Carotid Dopplers showing <50% stenosis bilateral ICA. Neuro consult for assistance with the possible NPH. Neurology recommendations appreciated and will discuss with the patient about lumbar puncture. She is not aware of any lumbar puncture planned by neurology service. I will try to get in touch when Neurology Service to clarify whether lumbar puncture still planned. (2) Acute UTI: Code(s): N39.0 - Urinary tract infection, site not specified Status: Acute Assessment and Plan: UA noted. Urine culture growing ESBL EColi. Discussed with ID who felt Bactrim might be sufficient but patient with leukopenia already so reluctant to start this. Continue ertapenem. She was on ceftriaxone earlier. Midline was placed yesterday on 03/14. She will be discharged back to custodial where she will complete the dose. (3) PVT (paroxysmal ventricular tachycardia): Code(s): I47.2 - Ventricular tachycardia Status: Acute Assessment and Plan: Patient has a history of paroxysmal ventricular tachycardia noted last admission and was started on amiodarone. We continued amiodarone and Toprol XL here. EKG 03/11 showing NSR with QTc 485. Continue tele monitoring. (4) CHF (congestive heart failure): Code(s): I50.9 - Heart failure, unspecified Status: Acute Assessment and Plan: Patient has a history of systolic and diastolic CHF. Echo last admission showing EF 35-40%, Grade I diastolic dysfunction and moderate . Clinically appears euvolemic. Continue lasix. Metoprolol and losartan added back and appear to be tolerating this. Continue to monitor (5) Anemia: Code(s): D64.9 - Anemia, unspecified Status: Acute Assessment and Plan: Hemoglobin low but stable in the 9-10 range. She has a macrocytosis. B12, folate levels normal. Iron studies show elevated iron levels but Ammonia negative. Continue to follow. (6) Type 2 diabetes mellitus: Code(s): E11.9 - Type 2 diabetes mellitus without complications Status: Acute Assessment and Plan: A1c was 7.0 last admission. She is only on Januvia listed. No evidence of hypoglycemia prior to admission. Will monitor closely with AccuCheks covering with sliding scale. Hypoglycemia protocol will be available as needed. (7) Hypertension: Code(s): I10 - Essential (primary) hypertension Status: Acute Assessment and Plan: Blood pressure was soft (105/50) at the time of last discharge. Blood pressures been well controlled since admission here and tolerating metoprolol and Losartan. (8) Aortic stenosis: Code(s): I35.0 - Nonrheumatic aortic (valve) stenosis Status: Acute Assessment and Plan: Patient with moderate aortic stenosis with aortic valve area of 1.5 cm2. Stable (9) DVT prophylaxis: Code(s): Z29.9 - Encounter for prophylactic measures, unspecified Status: Acute Assessment and Plan: Lovenox Additional Plan Leukopenia -white count was low last admission and persists. ANC 900 now. She may have an underlying mild dysplastic syndrome with her macrocytosis and anemia. B12 level okay. Platelet count normal. Amiodarone can cause blood dyscrasia. Continue to monitor. Follow with want ad supervisor as an outpatient for further workup if indicated. Case management has been informed abo
--- NOTE | 2021-03-14 14:31 | WPDNEUROPN ---
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 at present she is not 1 and she has not had any major stroke in the past, will consider the spinal tap on with taking about at least 15 to 20 cc of the fluid along with the normal studies Subjective Date/time seen: 85 years old right-handed female admitted to the hospital for the complaints of change in the mental status in addition to history of coronary artery disease, congestive heart failure, diabetes mellitus, history of coronary artery disease with moderate aortic stenosis and paroxysmal atrial tachycardia and ventricular tachycardia, documented to have ventriculomegaly on MRI of the brain, and since admission has been found to have anemia, abnormal UA and negative SARS-CoV-2 Review of Systems Review of Systems: All systems reviewed & are unremarkable except as noted in HPI and below Exam Const: General: cooperative, healthy appearing, comfortable, alert and awake Nutritional Appearance: overweight Orientation/consciousness: oriented to person and oriented to place Limitations: physical limitations HENMT: Head: normal to inspection Ears: hearing grossly normal bilaterally General nose exam: Normal external nose present Face and sinus: normal facial exam Mouth: Yes Normal oral and palatal mucosa present Throat: posterior oropharynx normal Eyes: General: appearance normal, both eyes and all related structures Visual Tai: normal visual tai by confrontation Alignment and Position: alignment normal Periorbital: periorbital findings normal Eyelids: eyelids normal Conjunctivae: conjunctivae normal Sclera: sclerae normal Cornea: corneas normal Pupils: Equal, round and reactive pupils present EOM: EOMs intact bilaterally Neck: Neck: normal visual inspection and full ROM Carotids: normal carotid upstroke Lymphatic: no lymphadenopathy noted Resp: Effort & Inspection: normal respiratory effort Auscultation: clear to auscultation bilaterally Cardio: Rate: regular rate Neuro: General: oriented to person, oriented to place and moves all extremities Cranial nerves: Yes CN's II-XII intact bilaterally, Yes Facial sensation intact/muscles of mastication intact, Yes Equal, round and reactive pupils present, Yes Bilaterally intact EOM present, Yes Nystagmus not present, Yes Normal facial strength present, Yes Midline tongue present and Yes Ability to bilaterally rotate head present Cognition (Neuro): normal cognition Speech: normal speech Gait exam (Neuro): Unable to assess gait Motor exam (neuro): Pronator motor function not present, No tremor noted, Motor fasciculations not present, Normal motor muscle tone present throughout and Motor abnormalities not present Sensory Exam: normal sensation Deep tendon reflexes (DTR's): Right triceps reflex intensity grade: 1+, Left triceps reflex intensity grade: 1+, Rt Biceps (C5, C6): 1+, Left biceps reflex intensity grade: 1+, Right brachioradialis reflex intensity grade: 1+, Left brachioradialis reflex intensity grade: 1+, Right patellar reflex intensity grade: 1+, Left patellar reflex intensity grade: 1+, Right ankle reflex intensity grade: 1+ and Left ankle reflex intensity grade: 1+ Plantar Reflex Responses: downgoing: bilateral Coordination: [id number] test normal Psych: Appearance: grossly normal Speech and movement: Normal speech and movement present Affect: normal affect Attitude: cooperative Thought process: Normal thought process present Thought content: Yes Normal thought content present Insight: Fair insight present (Psych) Judgement: Fair judgement present (Psych) Objective Data Vital Signs Vital Signs: Vital Signs - 24 hr 03/13/21 16:00 03/13/21 20:00 03/13/21 22:00 Temperature 36.4 C Pulse Rate 64 65 67 Respiratory Rate 16 Blood Pressure 132/54 L Pulse Oximetry 92 03/14/21 00:00 03/14/21 04:00 03/14/21 06:00 T
[2021-03-14] MEDS: ERTAPENEM 1 GM/NS 50 ML 1 GM/50 ML BAG IVPB (14:48)
[2021-03-14 16:47] LABS: Glucose Point of Care 139 mg/dl (65-105)
[2021-03-14 22:10] LABS: Glucose Point of Care 124 mg/dl (65-105)
[2021-03-15] VITALS (8 sets, daily range): BP systolic 113–114; BP diastolic 50–63; PULSE 60–76; RESP 16–18; TEMP 35.8–36.4; O2SAT 96
[2021-03-15 08:49] LABS: Glucose Point of Care 123 mg/dl (65-105)
[2021-03-15] MEDS: PANTOPRAZOLE 40 MG TABLET PO (08:52)
[2021-03-15] MEDS: ENOXAPARIN 40 MG/0.4 ML SYRINGE SUB-Q (08:52)
[2021-03-15] MEDS: THERAPEUTIC MULTIVITAMINS/MINERALS TAB (*BKC) 1 TABLET PO (08:52)
[2021-03-15] MEDS: ASPIRIN 81 MG ENTERIC TABLET PO (08:53)
[2021-03-15] MEDS: FUROSEMIDE 40 MG TABLET PO (08:53)
[2021-03-15] MEDS: GABAPENTIN 100 MG CAPSULE 200 MG PO (08:53)
[2021-03-15] MEDS: BACLOFEN 10 MG TABLET PO ×2 (08:53→12:43)
[2021-03-15] MEDS: METOPROLOL SUCCINATE EXT REL 25 MG TABCR PO (08:56)
[2021-03-15] MEDS: LOSARTAN POTASSIUM 25 MG TABLET PO (08:56)
[2021-03-15] MEDS: AMIODARONE HCL 200 MG TABLET PO (08:57)
[2021-03-15 12:41] LABS: Glucose Point of Care 203 mg/dl (65-105)
[2021-03-15] MEDS: INSULIN ASPART (*BKC) 100 UNITS/ML SUB-Q (12:43)
[2021-03-15] MEDS: ACETAMINOPHEN 500 MG TABLET PO (12:51)
--- NOTE | 2021-03-15 13:13 | PM.DS ---
DS: Admitting Diagnosis Discharge Date 03/15/21 Admitting Diagnosis Altered mental status DS: Discharge Diagnosis Discharge Diagnosis (1) Altered mental status: Code(s): R41.82 - Altered mental status, unspecified Status: Acute Assessment and Plan: Patient with acute onset of altered mental status. [place] related to acute encephalopathy from UTI. Consider also seizure related to malignant cardiac rhythm (PVT) but nothing on the monitor. Consider also TIA; no CVA by MRI. MRI does show possible atrophy vs NPH. Carotid Dopplers showing <50% stenosis bilateral ICA. Neuro consult for assistance with the possible NPH. Neurology recommendations appreciated. I spoke with Neurology and plans now to have her follow up as outpatient for further evaluation for possible NPH. (2) Acute UTI: Code(s): N39.0 - Urinary tract infection, site not specified Status: Acute Assessment and Plan: UA noted. Urine culture growing ESBL EColi so antibiotics changed to ertapenem. Midline was placed on 03/14. She will be discharged back to long-term today where she will complete the course. (3) PVT (paroxysmal ventricular tachycardia): Code(s): I47.2 - Ventricular tachycardia Status: Acute Assessment and Plan: Patient has a history of paroxysmal ventricular tachycardia noted last admission and was started on amiodarone. We continued amiodarone and Toprol XL here. EKG 03/11 showing NSR with QTc 485. No significant dysrhythmias on tele. (4) CHF (congestive heart failure): Code(s): I50.9 - Heart failure, unspecified Status: Acute Assessment and Plan: Patient has a history of systolic and diastolic CHF. Echo last admission showing EF 35-40%, Grade I diastolic dysfunction and moderate . Clinically appears euvolemic. Continue lasix. Metoprolol and losartan added back and appear to be tolerating this. Continue to monitor (5) Anemia: Code(s): D64.9 - Anemia, unspecified Status: Acute Assessment and Plan: Hemoglobin low but stable in the 9-10 range. She has a macrocytosis. B12, folate levels normal. Iron studies show elevated iron levels. Ammonia negative. (6) Type 2 diabetes mellitus: Code(s): E11.9 - Type 2 diabetes mellitus without complications Status: Acute Assessment and Plan: A1c was 7.0 last admission. She is only on Januvia listed. No evidence of hypoglycemia prior to admission. We monitored closely with AccuCheks covering with sliding scale. Hypoglycemia protocol was available as needed. (7) Hypertension: Code(s): I10 - Essential (primary) hypertension Status: Acute Assessment and Plan: Blood pressure was soft (105/50) at the time of last discharge. Blood pressures been well controlled since admission here and tolerated metoprolol and Losartan. We held Spironolactone. (8) Aortic stenosis: Code(s): I35.0 - Nonrheumatic aortic (valve) stenosis Status: Acute Assessment and Plan: Patient with moderate aortic stenosis with aortic valve area of 1.5 cm2. Stable (9) Leukopenia: Code(s): D72.819 - Decreased white blood cell count, unspecified Status: Acute Assessment and Plan: White count was low last admission and persists here. ANC did drop below 1000 at one point. She may have an underlying mild dysplastic syndrome with her macrocytosis and anemia. B12 level okay. Platelet count normal. Amio can cause blood dyscrasia. Consider transient drop from viral etiology. Continue to monitor as outpatient. DS: Summary Hospital Course Reason for hospitalization: 85yo female with paroxysmal VTach, CHF and DM here for altered mental status. Please see H&P for details Hospital Course: Please see above for details of hospital course Status at Discharge Cognitive/behavioral status at discharge: Stable Time Spent with Patient Time attesta
[2021-03-15] MEDS: ERTAPENEM 1 GM/NS 50 ML 1 GM/50 ML BAG IVPB (13:59)
--- NOTE | 2021-03-15 14:44 | PCAUD ---
Home o2 eval scheduled for pt to discharge home.
[2021-03-15 15:26] LABS: EDCOVIDSCREEN Negative (Negative)
--- NOTE | 2021-03-15 16:13 | PCAUD ---
Pt discharged to [facility] IV removed R wrist 22 g, catheter intact. Midline LUE kept r/t pt remains on abt IV x3 days.
--- NOTE | 2021-03-18 09:10 | PC.NURSE ---
Spoke with nurse at [facility] regarding removal of midline catheter. Instructed that ML may be removed when the MD physician is ok with it. This is per order from Dr. Clement.
== END 2021-03-15 15:46 | DRG 690 ==
LOC: ANHED 08:29 → ANH3MEDSUR 10:59
PROVIDERS: Admitting Provider Internal Medicine; Emergency Provider Emergency Medicine; PCP Family Medicine; Visit Provider Internal Medicine
DX: N39.0 Urinary tract infection, site not specified (principal); I47.2 Ventricular tachycardia; I50.42 Chronic combined systolic (congestive) and diastolic (congestive) heart failure; Z16.12 Extended spectrum beta lactamase (ESBL) resistance; I11.0 Hypertensive heart disease with heart failure; B96.20 Unspecified Escherichia coli [E. coli] as the cause of diseases classified elsewhere; R41.82 Altered mental status, unspecified; Z20.822 Contact with and (suspected) exposure to COVID-19; D64.9 Anemia, unspecified; E11.9 Type 2 diabetes mellitus without complications; I35.0 Nonrheumatic aortic (valve) stenosis; I25.10 Atherosclerotic heart disease of native coronary artery without angina pectoris; D72.819 Decreased white blood cell count, unspecified; Z95.1 Presence of aortocoronary bypass graft; Z79.82 Long term (current) use of aspirin; Z79.899 Other long term (current) drug therapy
CPT/HCPCS: 36415; 36569; 51701; 70450; 70553; 71045; 80048; 80053; 80069; 80076; 81001; 82140; 82607; 82728; 82746; 82948; 83540; 83550; 83605; 83735; 84100; 84484; 85025; 85610; 85730; 87040; 87077; 87086; 87088; 87186; 87426; 92610; 93005; 93880; 96361; 96365; 96372; 96376; 97110; 97161; 97165; 97530; 97535; 99285; A9270; A9577; C1751; C9803; G0378; J0696; J1335; J1650; J1815; J7030

== ENCOUNTER 2021-04-08 08:09 | Inpatient (IN) | payer MEDICARE, OTHER, MEDICAID, SELFPAY ==
[2021-04-08] VITALS (46 sets, daily range): BP systolic 91–133; BP diastolic 37–60; PULSE 71–88; RESP 16–26; TEMP 36.1–37; O2SAT 92–100
--- NOTE | ~2021-04-08 | CT_ITS ---
EXAMINATION: CT abdomen pelvis wo con EXAM DATE: 04/10/2021 09:59 INDICATION: Leukocytosis, nausea . TECHNIQUE: Spiral CT of the abdomen and pelvis was performed without contrast. Axial, coronal and s agittal images of the abdomen and pelvis were reviewed. The dose-length product (DLP) for this exami nation was 888.31 mGy-cm. The exposure was tailored according to patient size (auto mA exposure cont rol), and iterative reconstruction (ASIR) was used as additional dose reduction technique. There is no prior study for comparison. FINDINGS: The liver, spleen, adrenal glands and pancreas are unremarkable. Small gallstones within c ontracted gallbladder, which is otherwise unremarkable. There is no nephrolithiasis or hydronephrosi s. The uterus is not identified and has likely been surgically resected. There is calcific density which could be within the vagina measuring about 3 cm. The bladder is unremarkable. There is no ret roperitoneal or pelvic lymphadenopathy. There is moderate scattered arteriosclerotic disease. Small right inguinal and umbilical fat-containing hernias. The appendix is normal. There is mild scattered colonic diverticulosis. There is no adjacent inflamm atory change to suggest diverticulitis. The stomach and small bowel are unremarkable. There is expec michela amount of colonic stool. No free intraperitoneal gas. Mild cardiomegaly. Sternotomy wires. T he lung bases are unremarkable. There are no osteoblastic or osteolytic lesions identified. There is moderate lumbar levoscoliosis. IMPRESSION: 1. No acute intra-abdominal findings. 2. Chronic findings including fat-containing hernias, cholelithiasis, colonic diverticulosis, calcif ic density which could be within the vaginal lumen. Reviewed, dictated and finalized at location A. IMPRESSION: 1. No acute intra-abdominal findings. 2. Chronic findings including fat-containing hernias, cholelithiasis, colonic diverticulosis, calcific density which could be within the vaginal lumen.
--- NOTE | ~2021-04-08 | CT_ITS ---
EXAMINATION: CTA chest PE protocol EXAM DATE: 04/08/2021 11:50 INDICATION: Shortness of breath with elevated d-dimer. TECHNIQUE: Spiral CTA of the chest (pulmonary arteries) was performed with 100 cc Omnipaque 350 intr avenous contrast injection. Images were acquired during the pulmonary arterial phase. Coronal maxi mum intensity projection 3D-reconstructions were created by the technologist on dedicated workstation . Axial, coronal and sagittal reformatted images were reviewed. The dose-length product (DLP) for t his examination was 829.11 mGy-cm. The exposure was tailored according to patient size (auto mA exp osure control), and iterative reconstruction (ASIR) was used as additional dose reduction technique. There is no prior study for comparison. FINDINGS: There are no pulmonary emboli in the 1st through 3rd order (central and interlobar) pulmon maria m arteries. Some loss of attenuation in the segmental pulmonary arteries due to respiratory motion , but no intraluminal filling defects suspected. No thoracic aortic dissection. Linear bibasilar a telectasis. There are no pleural or pericardial effusions. Tracheobronchial tree is patent. Ther e is no mediastinal, hilar or axillary lymphadenopathy. There is no pneumothorax. There is cardio megaly. There are sternotomy wires, and cardiac/coronary surgical changes. Correlate with prior hist ory. Probable small cholelithiasis. There is moderate thoracic spondylosis without osteoblastic or osteolytic lesions identified. Previously seen pleural effusions have resolved. IMPRESSION: 1. Linear basilar subsegmental atelectasis. 2. Cardiomegaly. 3. No pulmonary emboli. Reviewed, dictated and finalized at location B.
--- NOTE | ~2021-04-08 | XR_ITS ---
XR chest 1V portable 04/11/2021 13:00 Indication: Syncope. Low blood pressure. Procedure: AP portable chest Comparison: 04/08/2021 Findings: Status post median sternotomy for CABG. Low lung volumes with crowding of the pulmonary vas culature. Possible mild interstitial edema. Cardiomegaly. There is atherosclerosis and ectasia of the aorta. No significant effusion or pneumothorax. There are multiple healed left rib fractures. Impression: 1: Cardiomegaly with possible mild interstitial edema. Reviewed, dictated and finalized at location A. Impression: 1: Cardiomegaly with possible mild interstitial edema.
--- NOTE | ~2021-04-08 | XR_ITS ---
EXAMINATION: XR chest 2V DATE: 04/08/2021 08:50 INDICATION: Shortness of breath. Right-sided weakness. TECHNIQUE: Frontal and lateral views of the chest were obtained. COMPARISON: Chest single view 03/10/2021, chest CT 03/02/2021 FINDINGS: Arnaud B-lines are noted, consistent with mild pulmonary edema. No pleural effusion or pneu mothorax. Cardiomegaly is noted. Median sternotomy wires and mediastinal surgical clips are seen, lik tabatha from prior coronary artery bypass grafting. There is an old healed fracture of proximal right hum erus. IMPRESSION: 1. Mild pulmonary edema. 2. Cardiomegaly. Reviewed, dictated and finalized at location A.
--- NOTE | ~2021-04-08 | US_ITS ---
EXAMINATION: US venous doppler [facility] DATE: 04/09/2021 11:24 INDICATION: Shortness of breath. TECHNIQUE: Grayscale ultrasound images without and with compression and Doppler ultrasound images of the bilateral lower extremity veins were obtained. COMPARISON: Ultrasound 03/03/2021 FINDINGS: The visualized portions of right common femoral vein, profunda (deep) femoral vein, femoral vein, pop liteal vein, peroneal veins, posterior tibial veins, and greater saphenous vein outflow are patent. The visualized portions of left common femoral vein, profunda femoral vein, femoral vein, popliteal v ein, peroneal veins, posterior tibial veins, and greater saphenous vein outflow are patent. IMPRESSION: 1. No deep venous thrombosis. Reviewed, dictated and finalized at location A.
--- NOTE | 2021-04-08 08:11 | ECG_ITS ---
Measurements Intervals [place] Rate: 90 P: 52 FL: 211 QRS: 45 QRSD: 151 T: 29 QT: 436 QTc: 536 Interpretive Statements SINUS RHYTHM WITH FIRST DEGREE AV BLOCK VENTRICULAR PREMATURE COMPLEX RIGHT BUNDLE BRANCH BLOCK INFERIOR INFARCT, AGE INDETERMINATE BASELINE WANDER- I, III, AVL, V1-V6 ABNORMAL ECG Electronically Signed On 04-08-2021 8:22:46 CDT by Richie Scott D.O.
[2021-04-08 08:31] LABS: Hematocrit 30.6 % (37.0-47.0); Hemoglobin 9.8 g/dL (12.0-15.0); Mean Corpuscular Hemoglobin 37.7 pg (26-34); Mean Corpuscular Volume 117.7 fl (80-100); Mean Platelet Volume 12.9 fl (7.4-10.4); Platelet Count Result 239 k/mm3 (150-375); Red Cell Distribution Width 15.4 % (11.5-14.5)
[2021-04-08 08:42] LABS: Anion Gap 8 mmol/L (8-16); Blood Urea Nitrogen 25 mg/dL (7-17); Calcium 9.2 mg/dL (8.4-10.2); Carbon Dioxide 30 mmol/L (22-30); Chloride 101 mmol/L (98-107); Estimated CRCL calculation 41 ml/min; Estimated Glomerular Filt Rate 59; Glucose 185 mg/dL (65-110); Potassium 4.5 mmol/L (3.4-5.0); Sodium 139 mmol/L (137-145)
--- NOTE | 2021-04-08 08:43 | ED.SOB ---
HPI - SOB/Dyspnea General Chief Complaint: Shortness of Breath/Dyspnea Stated Complaint: low spo2, wheezing Time Seen by Provider: 04/08/21 08:17 Source: EMS Mode of arrival: EMS Limitations: clinical condition History of Present Illness HPI Narrative: Patient is an 85-year-old [facility] due to low oxygen saturation in the 70s accompanied by shortness of breath today. Patient was placed on 2 L by EMS oxygen saturation up to 93%. Related Data Home Medications Medication Instructions Recorded Confirmed Januvia 100 mg PO DAILY 03/03/21 03/10/21 acetaminophen 500 mg PO Q6H PRN 03/03/21 03/10/21 alum-mag hydroxide-simeth 30 ml PO Q6H PRN 03/03/21 03/10/21 [Rani-Mox Antacid-Antigas] aspirin 81 mg PO DAILY 03/03/21 03/10/21 baclofen 10 mg PO TID 03/03/21 03/10/21 estradiol See Rx Instructions .ROUTE .COMPLEX 03/03/21 03/10/21 gabapentin 200 mg PO BID 03/03/21 03/10/21 metoprolol succinate 25 mg PO DAILY 03/03/21 03/10/21 multivitamin with minerals 1 tablet PO DAILY 03/03/21 03/10/21 omeprazole 20 mg PO BID 03/03/21 03/10/21 ondansetron 4 mg PO Q8H PRN 03/03/21 03/10/21 polyethylene glycol 3350 [Miralax] 17 g PO DAILY 03/03/21 03/10/21 sennosides-docusate sodium 1 tablet PO DAILY 03/03/21 03/10/21 [Senexon-S] nitrofurantoin monohyd/m-cryst 100 mg PO Q12H 04/08/21 [Macrobid] Allergies Allergy/AdvReac Type Severity Reaction Status Date / Time codeine Allergy Unknown Verified 04/08/21 08:44 metformin Allergy Unknown Verified 04/08/21 08:44 lisinopril AdvReac Unknown Verified 04/08/21 08:44 morphine AdvReac Dizziness Verified 04/08/21 08:44 Review of Systems Review of Systems: All systems reviewed & are unremarkable except as noted in HPI and below Constitutional: Constitutional: Denies body ache(s), Denies chills, Denies excessive sweating, Denies fatigue, Denies fever(s), Denies headache(s), Denies lethargy, Denies malaise, Denies weakness and Denies weight loss Eyes: Eyes: Denies blurry vision, Denies change in vision and Denies loss of vision ENT: Denies dizziness, Denies ear discharge, Denies headache(s), Denies lip swelling, Denies epistaxis, Denies nasal congestion, Denies neck pain, Denies throat swelling and Denies tongue swelling Cardiovascular: Cardiovascular: Denies chest pain, Denies chest pain at rest, Denies chest pain with activity, Denies diaphoresis, Denies rapid heart rate, Denies edema, Denies irregular heart rhythm, Denies lightheadedness and Denies palpitations Respiratory: Respiratory: Denies chest congestion, Denies cough and Denies hemoptysis Gastrointestinal: Gastrointestinal: Denies abdominal pain, Denies melena, Denies hematochezia, Denies diarrhea, Denies nausea, Denies vomiting and Denies hematemesis Musculoskeletal: Musculoskeletal: Denies abnormal gait, Denies deformity, Denies joint swelling, Denies limited range of motion, Denies neck pain and Denies numbness Neurologic: Denies Abnormal speech present, Denies abnormal gait, Denies confusion, Denies dizziness, Denies headache(s), Denies focal weakness, Denies loss of vision, Denies numbness, Denies Other visual disturbances, Denies Sensory deficit (Neuro) and Denies weakness Psychiatric: Psychiatric: Denies confusion, Denies depression, Denies auditory hallucinations, Denies homicidal ideation and Denies suicidal ideation Endocrine: Endocrine: Denies cold intolerance, Denies excessive sweating, Denies fatigue, Denies heat intolerance and Denies palpitations Hematologic/Lymphatic: Hematologic/Lymphatic: Denies easy bleeding and Denies easy bruising Allergic/Immunologic: Allergic/Immunologic: Denies lip swelling, Denies throat swelling and Denies tongue swelling PMFSH Past Medical History Medical History Cellulitis of perineum CHF (congestive heart failure) Coronary artery disease Frequent UTI Hypertension Moderate aortic stenosis PAT (paroxysmal atrial
[2021-04-08] MEDS: IPRATROPIUM BR 0.02% INH SOLN 0.5 MG/2.5 ML VIAL INHALATION (09:19)
[2021-04-08] MEDS: ALBUTEROL SULFATE NEB 2.5 MG/0.5 ML INH 5 MG INHALATION (09:19)
[2021-04-08] MEDS: FUROSEMIDE INJ 40 MG/4 ML VIAL IV PUSH (09:20)
[2021-04-08] MEDS: DEXAMETHASONE SOD PHOS INJ 4 MG/ML VIAL 10 MG IV PUSH (09:23)
[2021-04-08 09:27] LABS: Band Neutrophils Percent 31 % (0-6); Lymphocytes Absolute Manual 1.04 K/mm3 (1.1-4.5); Monocytes Absolute Manual 0.26 K/mm3 (0.1-0.90); Monocytes Percent Manual 1 % (3-9); Neutrophils Percent Manual 64 % (46-73); Platelet Estimate Adequate (Adequate); Total Cells Counted 100
[2021-04-08 09:38] LABS: INR 1.2; Prothrombin Time 15.2 Seconds (11.1-14.7)
[2021-04-08 09:39] LABS: Partial Thromboplastin Time 31.9 SECONDS (22.3-36.8)
[2021-04-08 09:41] LABS: D Dimer 2.17 ug/mL (<0.48)
[2021-04-08 10:11] LABS: NT Pro B Type Natriuretic Pept 9850 pg/mL (5-100)
[2021-04-08 11:38] LABS: Add Urine Microscopic? YES; Appearance Urine Cloudy (Clear); Bacteria Urine 1+ /hpf; Bilirubin Urine Negative (Negative); Blood Urine Negative (Negative); Color Urine Yellow (Yellow); Glucose Urine UA Negative (Negative); Ketones Urine Negative (Negative); Leukocyte Esterase Ur 1+ LEU/UL (Negative); Mucus Urine Rare /lpf; Nitrate Urine Negative (Negative); Protein Urine Negative (Negative); Specific Grav Ur 1.011 (1.001-1.035); Squamous Epithelial Cell Urine Moderate /hpf (Few); Urobilinogen Urine Negative mg/dL (<2.0)
[2021-04-08] MEDS: LACTATED RINGERS 1,000 ML 75 ML IV CONT (13:29)
--- NOTE | 2021-04-08 13:30 | PM.IMHP ---
H&P: HPI History of Present Illness Date/Time: 04/08/21 13:30 Chief Complaint: Shortness of breath. Narrative: This is a pleasant 85-year-old female with history of dementia, coronary artery disease, congestive heart failure, aortic stenosis, and diabetes who presented to the emergency department earlier today via EMS from [facility] for evaluation of shortness of breath. She is known to the hospitalist service from recent admissions and in fact this will be her 3rd admission in the last 6 weeks. The patient is only a fair historian due to some memory loss however her daughter Sally at bedside provides additional history, with the patient's permission She was initially admitted through the emergency department on 03/02/2021 at which time she came in complaining of chest pain and shortness of breath, treated for volume overload. During that stay she was seen by Dr. Scott and started on amiodarone for paroxysmal atrial tachycardia and ventricular tachycardia. Echocardiogram showed systolic and diastolic congestive heart failure with an ejection fraction of 35 to 40% as well as grade 1 diastolic dysfunction. She was diuresed, weaned from oxygen, and was discharged on 03/07/2021. She was readmitted on 03/10/2021 after presenting with altered mental status felt to be related to urinary tract infection, ESBL E coli for which she was discharged with a midline on ertapenem on 03/15/2021. She apparently has been doing well up until the last couple of days when she began complaining of shortness of breath and this morning she was increasingly short of breath with an SpO2 in the 70s. Aside from generalized malaise and the shortness of breath, the patient does not really have any significant complaints. She specifically denies fever and chills however she had some sweats earlier today. No headache or neck ache. She has not had sinus congestion, rhinorrhea, otalgia, or odynophagia. No cough. No chest pain or pleuritic pain. She has not had nausea, vomiting, diarrhea, or dysuria. It should be noted that the patient has had a shallow ulceration on the right inner labia for months and she is being followed by a urologist and a wound care team, I believe out of [place]. On EMS arrival to the emergency department, her vital signs were stable although mildly tachypneic. Her blood pressures did drop into the 90 systolic at one point though that has improved with IV fluids. Additionally she had a white blood cell count of 26 with a left shift as well as an elevated lactic acid level. Chest x-ray and CTA of the chest showed no acute findings. 10 to 15 wbc's and 1+ bacteria and leukocyte Estrace were noted on urinalysis and she received a dose of Zosyn the emergency department for possible urinary tract infection. She is being admitted in this setting. Review of Systems Review of Systems: Twelve systems were reviewed. No headache or neck ache. Denies sinus congestion, rhinorrhea, otalgia, and odynophagia. She has vaccinated for COVID and did receive the booster several weeks ago. No sick contacts. She denies dysphagia and concerns for aspiration. No cough. She has not had chest pain or pleuritic pain. No palpitations. No nausea, vomiting, or diarrhea. Patient denies dysuria. She is incontinent of urine and stool at baseline. Except as documented, all other systems were reviewed and are negative. [facility] Past Medical History Medical History (Updated 04/08/21 @ 21:01 by Michelle Sosa PA-C) Altered mental status (~02/2021) Gabriels to be related to urinary tract infection. 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 Arthritis Combined systolic and diastolic congestive heart failure Echocardiogram on 03/04/2021 showed a moderately reduced left ventricular systolic function with an EF of 35 to 40% and grade 1 diastolic dysfunction. Coronary artery disease COVID-19 (02/2020) Dementia Hypertension Macrocytic anemia B12, folate levels normal in February 2021. Iron level was elevated.
[2021-04-08 14:36] LABS: Reflex Lactic Acid Yes or No Add Lactic
[2021-04-08 15:50] LABS: Lactic Acid 3.7 mmol/L (0.7-2.1)
--- NOTE | 2021-04-08 16:39 | ADMGEN ---
This patient, Shireen Couch, was admitted to [facility] Surg Room 307-02. Patient/family oriented to hospital policies and general routines including ID bracelet, bed and alarms, visiting hours, pain management, procedures, bathroom and other care routines, personal items, smoking policy, room service/diet, and visiting hours. Information on how to activate the Rapid Response Team has been discussed. Patient/Family are encouraged to report perceived risks to care and to ask questions if they do not understand what they are told or what they should do.
[2021-04-08 21:34] LABS: Alanine Aminotransferase 15 U/L (4-35); Albumin Level 3.9 g/dL (3.5-5.1); Alkaline Phosphatase 61 U/L (38-126); Aspartate Amino Transferase 22 U/L (14-36); Bilirubin,Total 0.7 mg/dL (0.2-1.3); Magnesium 2.1 mg/dL (1.6-2.3)
[2021-04-08 21:35] LABS: Lactic Acid Reflex 2.6 mmol/L (0.7-2.1)
[2021-04-08 21:40] LABS: Anion Gap 8 mmol/L (8-16); Blood Urea Nitrogen 28 mg/dL (7-17); Calcium 9.4 mg/dL (8.4-10.2); Carbon Dioxide 30 mmol/L (22-30); Chloride 99 mmol/L (98-107); Estimated CRCL calculation 41 ml/min; Estimated Glomerular Filt Rate 59; Glucose 229 mg/dL (65-110); Potassium 4.4 mmol/L (3.4-5.0); Sodium 137 mmol/L (137-145)
[2021-04-08] MEDS: ERTAPENEM 1 GM/NS 50 ML 1 GM/50 ML BAG IVPB (21:56)
[2021-04-08] MEDS: ESTRADIOL VAGINAL CREAM 42.5 GM 1 APPLIC VAGINAL (21:58)
[2021-04-08 22:01] LABS: Glucose Point of Care 214 mg/dl (65-105)
[2021-04-08 22:16] LABS: Hematocrit 26.6 % (37.0-47.0); Hemoglobin 8.7 g/dL (12.0-15.0); Mean Corpuscular HGB Conc 32.7 g/dl (32-36); Mean Corpuscular Hemoglobin 37.8 pg (26-34); Mean Corpuscular Volume 115.7 fl (80-100); Mean Platelet Volume 12.9 fl (7.4-10.4); Platelet Count Result 201 k/mm3 (150-375); Red Cell Distribution Width 15.4 % (11.5-14.5); White Blood Count 16.3 K/mm3 (4.5-10.0)
[2021-04-09] VITALS (12 sets, daily range): BP systolic 111–131; BP diastolic 41–50; PULSE 58–82; RESP 16–21; TEMP 36.2–36.3; O2SAT 91–100; BMI 34.7
[2021-04-09 06:28] LABS: Hematocrit 28.6 % (37.0-47.0); Hemoglobin 9.4 g/dL (12.0-15.0); Mean Corpuscular HGB Conc 32.9 g/dl (32-36); Mean Corpuscular Hemoglobin 37.9 pg (26-34); Mean Corpuscular Volume 115.3 fl (80-100); Platelet Count Result 218 k/mm3 (150-375); Red Blood Count 2.48 M/mm3 (4.2-5.4); Red Cell Distribution Width 15.2 % (11.5-14.5); White Blood Count 13.9 K/mm3 (4.5-10.0)
[2021-04-09 07:00] LABS: Alanine Aminotransferase 14 U/L (4-35); Alkaline Phosphatase 67 U/L (38-126); Anion Gap 12 mmol/L (8-16); Aspartate Amino Transferase 21 U/L (14-36); Bilirubin,Total 0.7 mg/dL (0.2-1.3); Blood Urea Nitrogen 31 mg/dL (7-17); Calcium 9.4 mg/dL (8.4-10.2); Carbon Dioxide 29 mmol/L (22-30); Chloride 99 mmol/L (98-107); Estimated CRCL calculation 40 ml/min; Estimated Glomerular Filt Rate 59; Glucose 169 mg/dL (65-110); Magnesium 2.2 mg/dL (1.6-2.3); Potassium 4.4 mmol/L (3.4-5.0); Sodium 140 mmol/L (137-145)
[2021-04-09 09:18] LABS: Band Neutrophils Percent 20 % (0-6); Lymphocytes Absolute Manual 0.41 K/mm3 (1.1-4.5); Metamyelocytes Percent 2 %; Monocytes Absolute Manual 0.13 K/mm3 (0.1-0.90); Monocytes Percent Manual 1 % (3-9); Neutrophils Absolute Manual 13.06 K/mm3 (1.7-7.2); Neutrophils Percent Manual 74 % (46-73); Platelet Estimate Adequate (Adequate); Total Cells Counted 100
[2021-04-09 09:47] LABS: Lactic Acid Reflex 1.5 mmol/L (0.7-2.1)
[2021-04-09] MEDS: ACETAMINOPHEN 500 MG TABLET PO (09:49)
[2021-04-09] MEDS: polyethylene glycoL 3350 17 GM POWD.PACK PO (09:52)
[2021-04-09] MEDS: LOSARTAN POTASSIUM 25 MG TABLET PO (09:52)
[2021-04-09] MEDS: METOPROLOL SUCCINATE EXT REL 25 MG TABCR PO (09:52)
[2021-04-09] MEDS: GABAPENTIN 100 MG CAPSULE 200 MG PO ×2 (09:52→16:48)
[2021-04-09] MEDS: FUROSEMIDE 40 MG TABLET PO (09:53)
[2021-04-09] MEDS: THERAPEUTIC MULTIVITAMINS/MINERALS TAB (*BKC) 1 TABLET PO (09:53)
[2021-04-09] MEDS: ENOXAPARIN 40 MG/0.4 ML SYRINGE SUB-Q (09:53)
[2021-04-09] MEDS: SENNA/DOCUSATE SODIUM TABLET 1 TAB PO (11:47)
[2021-04-09] MEDS: ASPIRIN 81 MG ENTERIC TABLET PO (11:47)
[2021-04-09] MEDS: PANTOPRAZOLE 40 MG TABLET PO ×2 (11:47→21:34)
[2021-04-09] MEDS: AMIODARONE HCL 200 MG TABLET PO (11:48)
[2021-04-09 13:42] LABS: Glucose Point of Care 171 mg/dl (65-105)
--- NOTE | 2021-04-09 14:52 | PM.IMPN ---
Progress Note: A&P Assessment and Plan (1) Sepsis: Qualifiers: Sepsis acute organ dysfunction status: unspecified Sepsis type: sepsis due to unspecified organism Qualified Code(s): A41.9 - Sepsis, unspecified organism Code(s): A41.9 - Sepsis, unspecified organism Status: Acute Assessment and Plan: In the setting of UTI with leukocytosis, hypotension and elevated lactic acid -continue ertapenem -monitor urine culture -blood cultures no growth to date (2) Abnormal urinalysis: Code(s): R82.90 - Unspecified abnormal findings in urine Status: Acute Assessment and Plan: As above -continue ertapenem (3) Acute respiratory failure: Qualifiers: Respiratory failure complication: hypoxia Qualified Code(s): J96.01 - Acute respiratory failure with hypoxia Code(s): J96.00 - Acute respiratory failure, unspecified whether with hypoxia or hypercapnia Status: Acute Assessment and Plan: Acute respiratory failure with hypoxia. Unclear etiology at this time -CTA negative for evidence of pulmonary edema, PE, or pneumonia -obesity hypoventilation syndrome? Untreated EDNA? Will order apnea link -may need oxygen at discharge (4) Combined systolic and diastolic congestive heart failure: Code(s): I50.40 - Unspecified combined systolic (congestive) and diastolic (congestive) heart failure Status: Acute Assessment and Plan: Appears euvolemic -continue oral Lasix, losartan and metoprolol (5) Macrocytic anemia: Code(s): D53.9 - Nutritional anemia, unspecified Status: Acute Assessment and Plan: Chronic and stable. -B12 and folate last month was within normal limits -MDS? (6) Type 2 diabetes mellitus: Code(s): E11.9 - Type 2 diabetes mellitus without complications Status: Acute Assessment and Plan: Last glucose 171 -continue Januvia and sliding scale insulin Time Spent With Patient Time with patient: 25 - 35 minutes Subjective Date/time seen: 04/09/21 14:52 Interval history: Pt is a 85-year-old female here for shortness of breath. Patient was seen today and does have baseline dementia but able to hold a full conversation. Patient states she is here for UTI. When asked why she came in the hospital, she could not remember. I reminded her that she came in for shortness of breath and she said that she feels about the same as yesterday. She has no complaints of cough, chest pain, nausea, vomiting, dysuria, leg swelling, or pain anywhere. Review of Systems Review of Systems: All systems reviewed & are unremarkable except as noted in HPI and below Exam Narrative: General: Well developed well nourished patient in NAD HEENT: normocephalic Neck: supple Neuro: Alert and oriented x4 but was slow to answer some questions and needed prompting. Cranial nerves 2-12 intact. CV:RRR Resp: Mild crackles at the bases, no rhonchi or wheezing. Currently on 1 L and she was decreased to 0.5 L nasal cannula Abd: Soft, non distended. No pain to palpation. Positive bowel sounds Extremities: No swelling, erythema, or pain to palpation. Objective Data Vital Signs Vital Signs: Vital Signs - 24 hr 04/08/21 15:51 04/08/21 16:56 04/08/21 20:00 Temperature 98.1 F Pulse Rate 73 78 71 Respiratory Rate 18 16 18 Blood Pressure 119/57 L 122/50 L Pulse Oximetry 98 96 96 04/08/21 22:00 04/09/21 00:00 04/09/21 04:00 Temperature 97.0 F L Pulse Rate 79 71 71 Respiratory Rate 18 Blood Pressure 109/47 L Pulse Oximetry 96 04/09/21 06:00 04/09/21 08:00 04/09/21 09:52 Temperature 97.3 F L Pulse Rate 69 69 69 Respiratory Rate 21 H 21 H Blood Pressure 111/41 L Pulse Oximetry 100 95 04/09/21 10:53 04/09/21 11:48 Temperature Pulse Rate 69 Respiratory Rate Blood Pressure Pulse Oximetry 95 Intake/Output Intake/Output: Intake & Output
[2021-04-09 18:35] LABS: Glucose Point of Care 158 mg/dl (65-105)
[2021-04-09] MEDS: ERTAPENEM 1 GM/NS 50 ML 1 GM/50 ML BAG IVPB (21:36)
[2021-04-10] VITALS (8 sets, daily range): BP systolic 117–138; BP diastolic 37–56; PULSE 57–62; RESP 14–20; TEMP 36.1–36.4; O2SAT 92–95
[2021-04-10 07:19] LABS: Hematocrit 27.6 % (37.0-47.0); Hemoglobin 8.9 g/dL (12.0-15.0); Mean Corpuscular HGB Conc 32.2 g/dl (32-36); Mean Corpuscular Hemoglobin 38.4 pg (26-34); Platelet Count Result 212 k/mm3 (150-375); Red Blood Count 2.32 M/mm3 (4.2-5.4); Red Cell Distribution Width 15.5 % (11.5-14.5); White Blood Count 5.4 K/mm3 (4.5-10.0)
[2021-04-10 07:33] LABS: Anion Gap 8 mmol/L (8-16); Blood Urea Nitrogen 34 mg/dL (7-17); Calcium 9.1 mg/dL (8.4-10.2); Carbon Dioxide 32 mmol/L (22-30); Chloride 99 mmol/L (98-107); Estimated CRCL calculation 35 ml/min; Estimated Glomerular Filt Rate 53; Glucose 139 mg/dL (65-110); Sodium 139 mmol/L (137-145)
[2021-04-10 07:47] LABS: Glucose Point of Care 134 mg/dl (65-105)
[2021-04-10 08:25] LABS: Atypical Lymphocytes Present; Band Neutrophils Percent 10 % (0-6); Basophils Absolute Manual 0.05 K/mm3 (0.0-0.1); Basophils Percent Manual 1 % (0-1); Eosinophils Absolute Manual 0.16 K/mm3 (0.02-0.5); Eosinophils Percent Manual 3 % (0-4); Lymphocytes Absolute Manual 1.51 K/mm3 (1.1-4.5); Metamyelocytes Percent 2 %; Monocytes Absolute Manual 0.16 K/mm3 (0.1-0.90); Monocytes Percent Manual 3 % (3-9); Neutrophils Percent Manual 53 % (46-73); Platelet Estimate Adequate (Adequate); Total Cells Counted 100
[2021-04-10 08:26] LABS: Hypochromasia 2+ (NORMAL)
[2021-04-10] MEDS: polyethylene glycoL 3350 17 GM POWD.PACK PO (10:09)
[2021-04-10] MEDS: PANTOPRAZOLE 40 MG TABLET PO ×2 (10:09→21:51)
[2021-04-10] MEDS: THERAPEUTIC MULTIVITAMINS/MINERALS TAB (*BKC) 1 TABLET PO (11:02)
[2021-04-10] MEDS: METOPROLOL SUCCINATE EXT REL 25 MG TABCR PO (11:10)
[2021-04-10] MEDS: ASPIRIN 81 MG ENTERIC TABLET PO (11:10)
[2021-04-10] MEDS: FUROSEMIDE 40 MG TABLET PO (11:11)
[2021-04-10] MEDS: AMIODARONE HCL 200 MG TABLET PO (11:12)
[2021-04-10] MEDS: ENOXAPARIN 40 MG/0.4 ML SYRINGE SUB-Q (11:12)
[2021-04-10] MEDS: SENNA/DOCUSATE SODIUM TABLET 1 TAB PO (11:12)
[2021-04-10] MEDS: GABAPENTIN 100 MG CAPSULE 200 MG PO ×2 (11:12→17:09)
[2021-04-10] MEDS: LOSARTAN POTASSIUM 25 MG TABLET PO (11:12)
[2021-04-10 11:32] LABS: Glucose Point of Care 111 mg/dl (65-105)
--- NOTE | 2021-04-10 13:44 | PM.IMPN ---
Progress Note: A&P Assessment and Plan (1) Sepsis: Qualifiers: Sepsis acute organ dysfunction status: unspecified Sepsis type: sepsis due to unspecified organism Qualified Code(s): A41.9 - Sepsis, unspecified organism Code(s): A41.9 - Sepsis, unspecified organism Status: Acute Assessment and Plan: In the setting of UTI with leukocytosis, hypotension and elevated lactic acid all of which has resolved -continue ertapenem -urine culture growing mixed david, will get a repeat urine culture from a straight cath to help decrease contamination due to significant sepsis on admission -blood cultures no growth to date -recently had ESBL UTI 03/10/2021 (2) Abnormal urinalysis: Code(s): R82.90 - Unspecified abnormal findings in urine Status: Acute Assessment and Plan: As above -continue ertapenem (3) Acute respiratory failure: Qualifiers: Respiratory failure complication: hypoxia Qualified Code(s): J96.01 - Acute respiratory failure with hypoxia Code(s): J96.00 - Acute respiratory failure, unspecified whether with hypoxia or hypercapnia Status: Acute Assessment and Plan: Acute respiratory failure with hypoxia. Unclear etiology at this time -CTA negative for evidence of pulmonary edema, PE, or pneumonia -apnea link does not show any evidence of EDNA but does show hypoxia at night -repeat O2 nocturnal study with 2 L of oxygen to see if this helps improve her desaturations -may need a home oxygen evaluation prior to discharge (4) Combined systolic and diastolic congestive heart failure: Code(s): I50.40 - Unspecified combined systolic (congestive) and diastolic (congestive) heart failure Status: Acute Assessment and Plan: Appears euvolemic -continue oral Lasix, losartan and metoprolol (5) Macrocytic anemia: Code(s): D53.9 - Nutritional anemia, unspecified Status: Acute Assessment and Plan: Chronic and stable. -B12 and folate last month was within normal limits -MDS? (6) Type 2 diabetes mellitus: Code(s): E11.9 - Type 2 diabetes mellitus without complications Status: Acute Assessment and Plan: Last glucose 111 -continue Januvia and sliding scale insulin Subjective Date/time seen: 04/10/21 13:44 Interval history: Pt is a 85-year-old female here for shortness of breath. Patient was seen today and does have baseline dementia but able to hold a full conversation. She has no complaints and is feeling better. She has no chest pain, shortness of breath, dysuria, fevers, abdominal pain, nausea or vomiting. Exam Narrative: General: Well developed well nourished patient in NAD sitting over the chair eating lunch HEENT: normocephalic Neck: supple Neuro: Alert and oriented x4 but was slow to answer some questions and needed prompting. Cranial nerves 2-12 intact. CV:RRR Resp: Mild crackles at the bases, no rhonchi or wheezing. Abd: Soft, non distended. No pain to palpation. Positive bowel sounds Extremities: No swelling, erythema, or pain to palpation. Objective Data Vital Signs Vital Signs: Vital Signs - 24 hr 04/09/21 14:00 04/09/21 16:00 04/09/21 21:00 Temperature 97.1 F L Pulse Rate 71 71 58 L Respiratory Rate 16 18 Blood Pressure 131/50 L Pulse Oximetry 96 95 04/09/21 22:00 04/10/21 00:00 04/10/21 04:00 Temperature 97.3 F L Pulse Rate 73 62 57 L Respiratory Rate 18 Blood Pressure 130/45 L Pulse Oximetry 91 04/10/21 06:00 04/10/21 08:00 04/10/21 11:10 Temperature 97.5 F L Pulse Rate 58 L 60 60 Respiratory Rate 18 Blood Pressure 138/56 L Pulse Oximetry 95 04/10/21 11:12 Temperature Pulse Rate 60 Respiratory Rate Blood Pressure Pulse Oximetry Intake/Output Intake/Output: Intake & Output 04/07/21 04/08/21 04/09/21 04/10/21 23:59 23:59 23:59 23:59 Intake Total 750 1970 480 Balance 750
[2021-04-10 16:04] LABS: Glucose Point of Care 129 mg/dl (65-105)
[2021-04-10 18:37] LABS: Add Urine Microscopic? YES; Appearance Urine Clear (Clear); Bilirubin Urine Negative (Negative); Blood Urine Negative (Negative); Color Urine Yellow (Yellow); Glucose Urine UA Negative (Negative); Ketones Urine Negative (Negative); Leukocyte Esterase Ur 2+ LEU/UL (Negative); Nitrate Urine Negative (Negative); Protein Urine Negative (Negative); Specific Grav Ur 1.008 (1.001-1.035); Squamous Epithelial Cell Urine Few /hpf (Few); Urobilinogen Urine Negative mg/dL (<2.0); WBC Urine 21-30 /hpf
[2021-04-10] MEDS: ERTAPENEM 1 GM/NS 50 ML 1 GM/50 ML BAG IVPB (21:50)
[2021-04-10 22:30] LABS: Glucose Point of Care 162 mg/dl (65-105)
[2021-04-11] VITALS (11 sets, daily range): BP systolic 94–146; BP diastolic 45–59; PULSE 55–78; RESP 14–20; TEMP 35.6–35.9; O2SAT 18–97
[2021-04-11 07:46] LABS: Glucose Point of Care 123 mg/dl (65-105)
[2021-04-11 08:08] LABS: Anion Gap 6 mmol/L (8-16); Blood Urea Nitrogen 30 mg/dL (7-17); Calcium 9.1 mg/dL (8.4-10.2); Carbon Dioxide 33 mmol/L (22-30); Chloride 99 mmol/L (98-107); Estimated CRCL calculation 39 ml/min; Estimated Glomerular Filt Rate 59; Glucose 128 mg/dL (65-110); Potassium 4.1 mmol/L (3.4-5.0); Sodium 138 mmol/L (137-145)
[2021-04-11 08:09] LABS: Hematocrit 27.6 % (37.0-47.0); Hemoglobin 9.2 g/dL (12.0-15.0); Mean Corpuscular HGB Conc 33.3 g/dl (32-36); Mean Corpuscular Hemoglobin 37.9 pg (26-34); Mean Corpuscular Volume 113.6 fl (80-100); Mean Platelet Volume 12.8 fl (7.4-10.4); Platelet Count Result 203 k/mm3 (150-375); Red Blood Count 2.43 M/mm3 (4.2-5.4); White Blood Count 3.9 K/mm3 (4.5-10.0)
[2021-04-11] MEDS: AMIODARONE HCL 200 MG TABLET PO (09:53)
[2021-04-11] MEDS: LOSARTAN POTASSIUM 25 MG TABLET PO (09:54)
[2021-04-11] MEDS: FUROSEMIDE 40 MG TABLET PO (09:54)
[2021-04-11] MEDS: METOPROLOL SUCCINATE EXT REL 25 MG TABCR PO (09:54)
[2021-04-11] MEDS: GABAPENTIN 100 MG CAPSULE 200 MG PO ×2 (09:54→16:56)
[2021-04-11] MEDS: SENNA/DOCUSATE SODIUM TABLET 1 TAB PO (09:54)
[2021-04-11] MEDS: THERAPEUTIC MULTIVITAMINS/MINERALS TAB (*BKC) 1 TABLET PO (09:54)
[2021-04-11] MEDS: ASPIRIN 81 MG ENTERIC TABLET PO (09:54)
[2021-04-11] MEDS: ENOXAPARIN 40 MG/0.4 ML SYRINGE SUB-Q (09:54)
[2021-04-11] MEDS: PANTOPRAZOLE 40 MG TABLET PO ×2 (09:54→21:33)
--- NOTE | 2021-04-11 11:05 | PM.IMPN ---
Progress Note: A&P Assessment and Plan (1) Sepsis: Qualifiers: Sepsis acute organ dysfunction status: unspecified Sepsis type: sepsis due to unspecified organism Qualified Code(s): A41.9 - Sepsis, unspecified organism Code(s): A41.9 - Sepsis, unspecified organism Status: Acute Assessment and Plan: In the setting of UTI with leukocytosis, hypotension and elevated lactic acid all of which has resolved -continue ertapenem -urine culture growing mixed david, repeat UA with much less contamination and cx still pending. She has a recent hx of ESBL E. coli with significant resistance. Since she was septic on arrival with a high WBC and lactic (now resolved), I think it is imperative that we wait for the repeat cx to come back before d/c. -blood cultures no growth to date -recently had ESBL UTI 03/10/2021 (2) Abnormal urinalysis: Code(s): R82.90 - Unspecified abnormal findings in urine Status: Acute Assessment and Plan: As above -continue ertapenem (3) Acute respiratory failure: Qualifiers: Respiratory failure complication: hypoxia Qualified Code(s): J96.01 - Acute respiratory failure with hypoxia Code(s): J96.00 - Acute respiratory failure, unspecified whether with hypoxia or hypercapnia Status: Acute Assessment and Plan: Acute respiratory failure with hypoxia. Unclear etiology at this time -CTA negative for evidence of pulmonary edema, PE, or pneumonia -apnea link does not show any evidence of EDNA but does show hypoxia at night -repeat study overnight was on room air and not on 02, discussed with RN and RT and we will assess her o2 needs again overnight (4) Combined systolic and diastolic congestive heart failure: Code(s): I50.40 - Unspecified combined systolic (congestive) and diastolic (congestive) heart failure Status: Acute Assessment and Plan: Appears euvolemic -continue oral Lasix, losartan and metoprolol (5) Macrocytic anemia: Code(s): D53.9 - Nutritional anemia, unspecified Status: Acute Assessment and Plan: Chronic and stable. -B12 and folate last month was within normal limits -MDS? (6) Type 2 diabetes mellitus: Code(s): E11.9 - Type 2 diabetes mellitus without complications Status: Acute Assessment and Plan: Last glucose 123 -continue Januvia and sliding scale insulin Time Spent With Patient Time with patient: 25 - 35 minutes Subjective Date/time seen: 04/11/21 11:05 Interval history: Pt is a 85-year-old female here for shortness of breath and possible UTI. Patient was seen today and is doing well. She no longer feels short of breath but does states she feels a little weaker. She has no dysuria, chest pain, nausea, vomiting, fevers, chills, or abdominal pain. Review of Systems Review of Systems: All systems reviewed & are unremarkable except as noted in HPI and below Exam Narrative: General: Well developed well nourished patient in NAD sitting up in bed in NAD HEENT: normocephalic Neck: supple Neuro: Alert and oriented x4 with quicker responses. Cranial nerves 2-12 intact. CV:RRR Resp: Mild crackles at the bases, no rhonchi or wheezing. Abd: Soft, non distended. No pain to palpation. Positive bowel sounds Extremities: No swelling, erythema, or pain to palpation. Objective Data Vital Signs Vital Signs: Vital Signs - 24 hr 04/10/21 11:10 04/10/21 11:12 04/10/21 14:00 Temperature 97.2 F L Pulse Rate 60 60 61 Respiratory Rate 14 Blood Pressure 127/47 L Pulse Oximetry 93 04/10/21 22:00 04/11/21 06:00 04/11/21 09:53 Temperature 96.9 F L 96.5 F L Pulse Rate 62 57 L 78 Respiratory Rate 20 20 Blood Pressure 117/37 L 146/45 H Pulse Oximetry 92 94 04/11/21 09:54 Temperature Pulse Rate 78 Respiratory Rate Blood Pressure Pulse Oximetry Intake/Output Intake/Output: Intake & Output
[2021-04-11 12:03] LABS: Glucose Point of Care 176 mg/dl (65-105)
--- NOTE | 2021-04-11 12:25 | ECG_ITS ---
Measurements Intervals [place] Rate: 58 P: 65 [place]: 220 QRS: 22 QRSD: 145 T: 29 QT: 431 QTc: 426 Interpretive Statements SINUS BRADYCARDIA WITH FIRST DEGREE AV BLOCK POSSIBLE LEFT ATRIAL ENLARGEMENT RIGHT BUNDLE BRANCH BLOCK INFERIOR INFARCT, AGE INDETERMINATE ABNORMAL ECG Electronically Signed On 04-11-2021 15:02:45 CDT by Richie Scott D.O.
[2021-04-11 12:34] LABS: Glucose Point of Care 169 mg/dl (65-105)
--- NOTE | 2021-04-11 13:00 | PC.NURSE ---
around 1235, APPRENTICE CARPENTER came to get me for help with patient. patient was up to chair and bent over onto bedside table. she responded quickly when I called her name. She could answer all of my orientation questions, her tongue was midline and smile symmetrical. blood pressure was 94/52, patient was very diaphoretic and pale. called Elizabeth Gomez to make her aware and orders were put in for labs, a chest X-ray, and and ECG. blood sugar was 169 and recheck of blood pressure when back in bed was 110/52. will continue to monitor closely and wait for test results.
[2021-04-11 13:26] LABS: Hematocrit 31.6 % (37.0-47.0); Hemoglobin 9.8 g/dL (12.0-15.0); Immature Platelet Fraction Pct 17.4 % (0.9-11.2); Mean Corpuscular Hemoglobin 38.4 pg (26-34); Mean Corpuscular Volume 123.9 fl (80-100); Mean Platelet Volume 13.1 fl (7.4-10.4); Platelet Count Result 218 k/mm3 (150-375); Red Blood Count 2.55 M/mm3 (4.2-5.4); White Blood Count 4.1 K/mm3 (4.5-10.0)
[2021-04-11 13:39] LABS: Alanine Aminotransferase 13 U/L (4-35); Albumin Level 3.9 g/dL (3.5-5.1); Alkaline Phosphatase 52 U/L (38-126); Anion Gap 11 mmol/L (8-16); Aspartate Amino Transferase 26 U/L (14-36); Bilirubin,Total 0.6 mg/dL (0.2-1.3); Blood Urea Nitrogen 28 mg/dL (7-17); Calcium 9.1 mg/dL (8.4-10.2); Carbon Dioxide 25 mmol/L (22-30); Chloride 99 mmol/L (98-107); Estimated CRCL calculation 39 ml/min; Estimated Glomerular Filt Rate 59; Glucose 167 mg/dL (65-110); Lactic Acid Reflex 2.5 mmol/L (0.7-2.1); Potassium 3.9 mmol/L (3.4-5.0); Sodium 135 mmol/L (137-145)
[2021-04-11] MEDS: SODIUM CHLORIDE 0.9% IV 500 ML 100 ML IV CONT (13:56)
[2021-04-11 14:00] LABS: Troponin I 0.093 ng/mL (0.000-0.034)
[2021-04-11 16:20] LABS: Reflex Lactic Acid Yes or No Add Lactic
--- NOTE | 2021-04-11 16:23 | PM.CNCAR ---
Assessment and Plan Assessment and plan (1) Dizziness: Code(s): R42 - Dizziness and giddiness Status: Acute Assessment and Plan: Probably related to a very narrow window of being in euvolemic range. Recommend keeping baseline BP in high normal range 130-150 systolic to prevent BP from dropping below 100 while seated or upright to prevent symptoms. Decrease Losartan 12.5 mg daily and Toprol XL 12.5 mg daily. (2) Combined systolic and diastolic congestive heart failure: Code(s): I50.40 - Unspecified combined systolic (congestive) and diastolic (congestive) heart failure Status: Acute Assessment and Plan: On Toprol and Losartan. (3) PAT (paroxysmal atrial tachycardia): Code(s): I47.1 - Supraventricular tachycardia Status: Acute Assessment and Plan: Resolved with Amiodarone with normal QT interval. (4) PVT (paroxysmal ventricular tachycardia): Code(s): I47.2 - Ventricular tachycardia Status: Acute Assessment and Plan: Resolved with Amiodarone with normal QT interval. (5) CAD (coronary artery disease), autologous vein bypass graft: Code(s): I25.810 - Atherosclerosis of coronary artery bypass graft(s) without angina pectoris Status: Acute Assessment and Plan: Stable. (6) Dyslipidemia: Code(s): E78.5 - Hyperlipidemia, unspecified Status: Acute Assessment and Plan: Restart Pravastatin. (7) Elevated troponin: Code(s): R77.8 - Other specified abnormalities of plasma proteins Status: Acute Assessment and Plan: Mildly elevated and was elevated to this extent in Feb 2021. Probably related to UTI, systolic heart failure. (8) Acute UTI: Code(s): N39.0 - Urinary tract infection, site not specified Status: Acute Assessment and Plan: Management as per hospitalist. History of Present Illness History of Present Illness Consult date/time: 04/11/21 16:23 85 yr old woman presented to hospital for sob. She has a history of worsening confusion probably due to dementia, CAD/CABG x 5 vessels at [facility] in 2012, PAT/PVT on Amiodarone, DM, UTI, DNR code status, and resides at [facility]. Her daughter is at bedside She is alert and oriented x 3 currently but states she is confused. She had dizziness while having lunch today. Her BP was 92 systolic, and her lie down and given IVF with resolution of symptoms. Her daughter states she gets dizzy also at times while having a bowel movement. Denies chest pain or sob. No longer dizzy. She states she can walk with her walker about 50 feet normally. Her troponin is mildly elevated at .093. In Feb 2021 her Trop .101, then .117, then .095. EKG shows Sinus rhythm, borderline AV conduction delay, RBBB, inferior infarct, age indeterminate. CXR shows mild pulm edema. Reason For Visit: Sepsis Review of Systems Review of Systems: All systems reviewed & are unremarkable except as noted in HPI and below Constitutional: Constitutional: Reports as per HPI, Denies chills and Denies fever(s) Cardiovascular: Cardiovascular: Reports as per HPI, Denies chest pain, Denies irregular heart rhythm and Reports lightheadedness Respiratory: Respiratory: Reports as per HPI and Denies dyspnea Gastrointestinal: Gastrointestinal: Reports as per HPI and Denies abdominal pain Genitourinary: Genitourinary: Reports as per HPI Neurologic: Reports as per HPI, Reports dizziness and Denies syncope [facility] Past Medical History Medical History (Updated 04/11/21 @ 16:29 by Richie Scott DO) Altered mental status (~02/2021) [place] to be related to urinary tract infection. 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 Arthritis Combined systolic and diastolic congestive heart failure Echocardiogram on 03/04/2021 showed a moderately reduced left ventricular systolic function with an EF of 35 to 40% and grade 1 diastolic dysfunction. Coronary artery disease
[2021-04-11 16:29] LABS: Glucose Point of Care 144 mg/dl (65-105)
[2021-04-11] MEDS: ERTAPENEM 1 GM/NS 50 ML 1 GM/50 ML BAG IVPB (21:32)
[2021-04-12] VITALS (13 sets, daily range): BP systolic 119–130; BP diastolic 48–59; PULSE 53–74; RESP 16–18; TEMP 35.7–36.7; O2SAT 92–95
--- NOTE | 2021-04-12 | ECHO_ITS ---
Patient Info Name: Shireen Couch Age: 85 years : 1935 Gender: Female Ht: 62 in Wt: 179 lbs BSA: 1.92 m2 BP: 120 / 48 mmHg Technical Quality: Poor Exam Date: 04/12/2021 10:40 AM Exam Location: [facility] Pulmonary Patient Status: Inpatient Admit Date: 04/08/2021 Staff Ordering Physician: Elizabeth Gomez PA-C Uniform Designer: Nasreen Moreland RDCS Attending Provider: Elizabeth Gomez PA-C Referring Physician: Patricia FUENTES; Exam Type: CA echo limited w contrast Study Info Indications - ELEVATE TROPONIN R55 - Syncope and collapse Limited two-dimensional transthoracic echocardiogram is performed with contrast. Contrast/Agitated Saline Contrast/Ag. Saline: Definity Amount: 2.00 ml Administered By: Natty Linn RN Existing IV Access: Yes IV Access Condition: patent with no signs of infiltration Reason for Poor Study: poor echocardiographic windows Summary 1. Limited echocardiogram to assess EF and wall motion abnormalities. 2. Technically suboptimal study due to poor sonographic images. 3. Definity contrast administered improved wall motion interpretation. 4. Left ventricular chamber dimension is mildly enlarged. 5. Left ventricular systolic function is moderately reduced, estimated at 35-40%. 6. The left ventricular diastolic function is indeterminate. Left Ventricle Technically suboptimal study due to poor sonographic images. Definity contrast administered improved wall motion interpretation. Limited echocardiogram to assess EF and wall motion abnormalities. Left ventricular chamber dimension is mildly enlarged. Left ventricular systolic function is moderately reduced, estimated at 35-40%. The left ventricular diastolic function is indeterminate. Aorta Name Value Normal Ascending Aorta Ao Root Diameter (MM) 1.1 cm Ao Root Diam Index (MM) 0.6 cm/m2 Ventricles Name Value Normal LV Dimensions 2D/MM IVS Diastole Thickness (MM) 0.9 cm 0.6-0.9 LVID Diastole (MM) 6.2 cm 3.8-5.2 LVIW Diastolic Thickness (MM) 1.0 cm 0.6-0.9 LVID Systole (MM) 4.9 cm 2.2-3.5 LV Mass (MM Cubed) 251.66 g 67.00-162.00 LV Mass Index (MM Cubed) 131 g/m2 43-95 Relative Wall Thickness (MM) 0.32 LV Fractional Shortening/Ejection Fraction 2D/MM LV Fractional Shortening (MM) 21 % 27-45 LV EF (MM Teicholz) 43 % 54-74 LV Diastolic Volume (4C MOD) 65 ml LV EF (4C MOD) 27 % LV Diastolic Volume (2C MOD) 80 ml LV EF (2C MOD) 43 % LV Diastolic Volume (BP MOD) 72 ml 46-106 LV Diastolic Volume Index (BP MOD) 38 ml/m
[2021-04-12 05:52] LABS: Basophils Percent Auto 0.6 % (0.2-1.2); Eosinophils Absolute Auto 0.2 K/mm3 (0-0.3); Eosinophils Percent Auto 5.5 % (0-4.4); Hematocrit 28.3 % (37.0-47.0); Hemoglobin 9.3 g/dL (12.0-15.0); Immature Granulocyte Absolute 0.09 K/mm3 (0.00-0.031); Immature Granulocyte Percent A 2.7 % (0-0.5); Lymphocytes Absolute Auto 1.88 K/mm3 (0.9-3.2); Mean Corpuscular HGB Conc 32.9 g/dl (32-36); Mean Corpuscular Hemoglobin 37.8 pg (26-34); Mean Platelet Volume 12.9 fl (7.4-10.4); Monocytes Absolute Auto 0.2 K/mm3 (0.1-0.6); Monocytes Percent Auto 6.1 % (2.6-8.5); Neutrophils Absolute Auto 0.9 K/mm3 (1.3-6.7); Neutrophils Percent Auto 28.1 % (45.5-73.1); Platelet Count Result 209 k/mm3 (150-375); Red Blood Count 2.46 M/mm3 (4.2-5.4); Red Cell Distribution Width 14.7 % (11.5-14.5); White Blood Count 3.3 K/mm3 (4.5-10.0)
[2021-04-12 05:56] LABS: Anion Gap 6 mmol/L (8-16); Blood Urea Nitrogen 25 mg/dL (7-17); Calcium 8.9 mg/dL (8.4-10.2); Carbon Dioxide 31 mmol/L (22-30); Chloride 101 mmol/L (98-107); Estimated CRCL calculation 39 ml/min; Estimated Glomerular Filt Rate 59; Glucose 144 mg/dL (65-110); Potassium 3.7 mmol/L (3.4-5.0); Sodium 138 mmol/L (137-145)
[2021-04-12 05:57] LABS: Lactic Acid 0.8 mmol/L (0.7-2.1)
[2021-04-12 06:16] LABS: Troponin I 0.095 ng/mL (0.000-0.034)
--- NOTE | 2021-04-12 07:41 | PM.PNCARD ---
Progress Note: A&P Assessment and Plan (1) Dizziness: Code(s): R42 - Dizziness and giddiness Status: Acute Assessment and Plan: Probably related to a very narrow window of being in euvolemic range. Recommend keeping baseline BP in high normal range 130-150 systolic to prevent BP from dropping below 100 while seated or upright to prevent symptoms. Decrease Losartan 12.5 mg daily and Toprol XL 12.5 mg daily. Losartan currently on hold. Would need low dose Lasix to keep in euvolemic range. (2) Combined systolic and diastolic congestive heart failure: Code(s): I50.40 - Unspecified combined systolic (congestive) and diastolic (congestive) heart failure Status: Acute Assessment and Plan: On Toprol and Losartan. (3) PAT (paroxysmal atrial tachycardia): Code(s): I47.1 - Supraventricular tachycardia Status: Acute Assessment and Plan: Resolved with Amiodarone with normal QT interval. (4) PVT (paroxysmal ventricular tachycardia): Code(s): I47.2 - Ventricular tachycardia Status: Acute Assessment and Plan: Resolved with Amiodarone with normal QT interval. Decrease Amiodarone 100 mg daily due to mildly bradycardic with HR in 50's bpm. (5) CAD (coronary artery disease), autologous vein bypass graft: Code(s): I25.810 - Atherosclerosis of coronary artery bypass graft(s) without angina pectoris Status: Acute Assessment and Plan: Stable. (6) Dyslipidemia: Code(s): E78.5 - Hyperlipidemia, unspecified Status: Acute Assessment and Plan: Restart Pravastatin. (7) Elevated troponin: Code(s): R77.8 - Other specified abnormalities of plasma proteins Status: Acute Assessment and Plan: Asymptomatic from this. Mildly elevated and flat at .095, and was elevated to this extent in Feb 2021. Probably related to UTI, systolic heart failure. No further cardiac workup needed for this. (8) Acute UTI: Code(s): N39.0 - Urinary tract infection, site not specified Status: Acute Assessment and Plan: Management as per hospitalist. Subjective Date/time seen: 04/12/21 07:41 Denies chest pain, sob, or dizziness at this moment. Exam Const: General: cooperative, healthy appearing and comfortable Resp: Auscultation: clear to auscultation bilaterally, no crackles, no rales, no rhonchi and no wheezes Cardio: Jugular venous distension: no JVD Rate: regular rate Rhythm: regular rhythm Heart sounds: no murmurs Peripheral pulses: dorsalis pedis present GI: GI Palp: No abdominal tenderness and Yes Soft to palpation Neuro: General: oriented to person, oriented to place and oriented to time Extrem: Right lower extremity: no edema Left lower extremity: no edema Objective Data Vital Signs Vital Signs: Vital Signs - 24 hr 04/11/21 09:53 04/11/21 09:54 04/11/21 12:30 Temperature Pulse Rate 78 78 74 Respiratory Rate 16 Blood Pressure 94/52 L Pulse Oximetry 97 04/11/21 12:35 04/11/21 12:39 04/11/21 14:00 Temperature 96.0 F L Pulse Rate 58 L 64 Respiratory Rate 16 14 Blood Pressure 114/46 L 110/52 L 108/54 L Pulse Oximetry 97 91 04/11/21 16:00 04/11/21 20:00 04/11/21 21:21 Temperature 96.6 F L Pulse Rate 63 56 L 55 L Respiratory Rate 18 Blood Pressure 110/59 L Pulse Oximetry 18 L 04/11/21 22:06 04/12/21 00:00 04/12/21 04:00 Temperature Pulse Rate 55 L 53 L Respiratory Rate Blood Pressure Pulse Oximetry 96 04/12/21 05:55 Temperature 96.3 F L Pulse Rate 59 L Respiratory Rate 18 Blood Pressure 120/48 L Pulse Oximetry 93 Intake/Output Intake/Output: Intake & Output 04/09/21 04/10/21 04/11/21 04/12/21 23:59 23:59 23:59 23:59 Intake Total 2019 1385 990 750 Balance 2019 1385 990 750 Meds/Results Medications: Active Medications Generic Name Dose Route Start Last Admin Trade Name Freq PRN Reason Stop Dose Admin Acetaminophen 500
[2021-04-12 08:27] LABS: Glucose Point of Care 129 mg/dl (65-105)
[2021-04-12] MEDS: THERAPEUTIC MULTIVITAMINS/MINERALS TAB (*BKC) 1 TABLET PO (09:21)
[2021-04-12] MEDS: SENNA/DOCUSATE SODIUM TABLET 1 TAB PO (09:21)
[2021-04-12] MEDS: ASPIRIN 81 MG ENTERIC TABLET PO (09:21)
[2021-04-12] MEDS: ENOXAPARIN 40 MG/0.4 ML SYRINGE SUB-Q (09:21)
[2021-04-12] MEDS: PRAVASTATIN SODIUM 10 MG TABLET PO (09:22)
[2021-04-12] MEDS: METOPROLOL SUCCINATE EXT REL 12.5 MG TABCR PO (09:22)
[2021-04-12] MEDS: GABAPENTIN 100 MG CAPSULE 200 MG PO ×2 (09:23→17:23)
[2021-04-12] MEDS: PANTOPRAZOLE 40 MG TABLET PO ×2 (09:23→21:35)
--- NOTE | 2021-04-12 09:25 | PM.IMPN ---
Progress Note: A&P Assessment and Plan (1) Sepsis: Qualifiers: Sepsis acute organ dysfunction status: unspecified Sepsis type: sepsis due to unspecified organism Qualified Code(s): A41.9 - Sepsis, unspecified organism Code(s): A41.9 - Sepsis, unspecified organism Status: Acute Assessment and Plan: In the setting of UTI with leukocytosis, hypotension and elevated lactic acid all of which has resolved continue ertapenem today will be day 5 Culture from 04/08/21 was contaminated, Repeat culture had no growth blood cultures no growth to date recently had ESBL UTI 03/10/2021 (2) Abnormal urinalysis: Code(s): R82.90 - Unspecified abnormal findings in urine Status: Acute Assessment and Plan: As above continue ertapenem day 5 No complaints of urgency or frequency (3) Acute respiratory failure: Qualifiers: Respiratory failure complication: hypoxia Qualified Code(s): J96.01 - Acute respiratory failure with hypoxia Code(s): J96.00 - Acute respiratory failure, unspecified whether with hypoxia or hypercapnia Status: Acute Assessment and Plan: Acute respiratory failure with hypoxia. Unclear etiology at this time CTA negative for evidence of pulmonary edema, PE, or pneumonia (04/08/21) apnea link does not show any evidence of EDNA but does show hypoxia at night Apnea link on 2LNC shows AHI to be 1 which is normal Probably needs 2LNC with sleeping (4) Combined systolic and diastolic congestive heart failure: Code(s): I50.40 - Unspecified combined systolic (congestive) and diastolic (congestive) heart failure Status: Acute Assessment and Plan: Appears euvolemic Continue lasix and metropolol Hold losartan at this time Cardiology on board Limited echo pending Echo from 03/04/21 shows ef of 35-40% with grade 1 diastolic dysfunction, Left ventricular systolic function is moderately reduced Strict I/Os (5) Macrocytic anemia: Code(s): D53.9 - Nutritional anemia, unspecified Status: Acute Assessment and Plan: Chronic and stable. H/H 9.3/28.3, MCV 115.0 B12 and folate last month was within normal limits Trend labs (6) Type 2 diabetes mellitus: Code(s): E11.9 - Type 2 diabetes mellitus without complications Status: Acute Assessment and Plan: Last glucose 144 continue Januvia and sliding scale insulin Trend labs Adjust medications as needed (7) Elevated troponin: Code(s): R77.8 - Other specified abnormalities of plasma proteins Status: Acute Assessment and Plan: Trops 0.095 x 2 which are flat Seems to be chronically elevated Probably related to hypervolemia Cardiology on board EKG SB with 1st degree heart block (8) Near syncope: Code(s): R55 - Syncope and collapse Status: Acute Assessment and Plan: Slumped over with lightheadedness and dizziness while up eating in the chair BP noted to be 94/52 Losartan on hold for now Trend BP Medications adjusted down Cards on board Cards recommends keeping systolic BP at 130-150s to buffer when she sits and stands. Time Spent With Patient Time with patient: 25 - 35 minutes Subjective Date/time seen: 04/12/21 11:25 Interval history: Date/Time: 04/08/21 13:30 Narrative: This is a pleasant 85-year-old female with history of dementia, coronary artery disease, congestive heart failure, aortic stenosis, and diabetes who presented to the emergency department earlier today via EMS from [facility] for evaluation of shortness of breath. She is known to the hospitalist service from recent admissions and in fact this will be her 3rd admission in the last 6 weeks. The patient is only a fair historian due to some memory loss however her daughter Sally at bedside provides additional history, with the patient's permission She was initially adm
--- NOTE | 2021-04-12 09:25 | P.PNIM_ITS ---
Progress Note: A&P Assessment and Plan (1) Sepsis: Qualifiers: Sepsis acute organ dysfunction status: unspecified Sepsis type: sepsis due to unspecified organism Qualified Code(s): A41.9 - Sepsis, unspecified o rganism Code(s): A41.9 - Sepsis, unspecified organism Status: Acute Assessment and Plan: * In the setting of UTI with leukocytosis, hypotension and elevated lactic acid all of which has resolved * continue ertapenem today will be day 5 * Culture from 04/08/21 was contaminated, Repeat culture had no growth * blood cultures no growth to date * recently had ESBL UTI 03/10/2021 (2) Abnormal urinalysis: Code(s): R82.90 - Unspecified abnormal findings in urine Status: Acute Assessment and Plan: * As above * continue ertapenem day 5 * No complaints of urgency or frequency (3) Acute respiratory failure: Qualifiers: Respiratory failure complication: hypoxia Qualified Code(s): J96.01 - Acute respiratory failure with hypoxia Code(s): J96.00 - Acute respiratory failure, unspecified whether with hypoxia or hypercapnia Status: Acute Assessment and Plan: * Acute respiratory failure with hypoxia. Unclear etiology at this time * CTA negative for evidence of pulmonary edema, PE, or pneumonia (04/08/21) * apnea link does not show any evidence of EDNA but does show hypoxia at night * Apnea link on 2LNC shows AHI to be 1 which is normal * Probably needs 2LNC with sleeping (4) Combined systolic and diastolic congestive heart failure: Code(s): I50.40 - Unspecified combined systolic (congestive) and diastolic (congestive) heart failure Status: Acute Assessment and Plan: * Appears euvolemic * Continue lasix and metropolol * Hold losartan at this time * Cardiology on board * Limited echo pending * Echo from 03/04/21 shows ef of 35-40% with grade 1 diastolic dysfunction, Left ventricular systolic function is moderately reduced * Strict I/Os (5) Macrocytic anemia: Code(s): D53.9 - Nutritional anemia, unspecified Status: Acute Assessment and Plan: * Chronic and stable. * H/H 9.3/28.3, MCV 115.0 * B12 and folate last month was within normal limits * Trend labs (6) Type 2 diabetes mellitus: Code(s): E11.9 - Type 2 diabetes mellitus without complications Status: Acute Assessment and Plan: * Last glucose 144 * continue Januvia and sliding scale insulin * Trend labs * Adjust medications as needed (7) Elevated troponin: Code(s): R77.8 - Other specified abnormalities of plasma proteins Status: Acute Assessment and Plan: * Trops 0.095 x 2 which are flat * Seems to be chronically elevated * Probably related to hypervolemia * Cardiology on board * EKG SB with 1st degree heart block (8) Near syncope: Code(s): R55 - Syncope and collapse Status: Acute Assessment and Plan: * Slumped over with lightheadedness and dizziness while up eating in the chair * BP noted to be 94/52 * Losartan on hold for now * Trend BP * Medications adjusted down * Cards on board * Cards recommends keeping systolic BP at 130-150s to buffer when she sits and stands. Time Spent With Patient Time with patient: 25 - 35 minutes Subjective Date/time seen: 04/12/21 11:25 Interval history: Date/Time: 04/08/21 13:30 Narrative: This is a plea
[2021-04-12 10:48] LABS: Troponin I 0.095 ng/mL (0.000-0.034)
[2021-04-12] MEDS: AMIODARONE HCL 100 MG TABLET PO (11:03)
[2021-04-12 11:56] LABS: Glucose Point of Care 145 mg/dl (65-105)
[2021-04-12 17:30] LABS: Glucose Point of Care 128 mg/dl (65-105)
[2021-04-12 17:32] LABS: Glucose Point of Care 136 mg/dl (65-105)
[2021-04-12] MEDS: ERTAPENEM 1 GM/NS 50 ML 1 GM/50 ML BAG IVPB (21:26)
[2021-04-12] MEDS: ESTRADIOL VAGINAL CREAM 42.5 GM 1 APPLIC VAGINAL (21:35)
[2021-04-13] VITALS (8 sets, daily range): BP systolic 136–152; BP diastolic 57–68; PULSE 65–77; RESP 14–18; TEMP 35.9–36.6; O2SAT 92–98
[2021-04-13 06:15] LABS: Basophils Percent Auto 0.6 % (0.2-1.2); Eosinophils Absolute Auto 0.2 K/mm3 (0-0.3); Hematocrit 30.9 % (37.0-47.0); Hemoglobin 10.3 g/dL (12.0-15.0); Immature Granulocyte Absolute 0.02 K/mm3 (0.00-0.031); Immature Granulocyte Percent A 0.6 % (0-0.5); Lymphocytes Absolute Auto 1.88 K/mm3 (0.9-3.2); Lymphocytes Percent Auto 58.2 % (18.3-44.2); Mean Corpuscular HGB Conc 33.3 g/dl (32-36); Mean Corpuscular Hemoglobin 38.6 pg (26-34); Mean Corpuscular Volume 115.7 fl (80-100); Mean Platelet Volume 12.6 fl (7.4-10.4); Monocytes Absolute Auto 0.2 K/mm3 (0.1-0.6); Monocytes Percent Auto 6.8 % (2.6-8.5); Neutrophils Absolute Auto 0.9 K/mm3 (1.3-6.7); Neutrophils Percent Auto 28.8 % (45.5-73.1); Platelet Count Result 197 k/mm3 (150-375); Red Blood Count 2.67 M/mm3 (4.2-5.4); Red Cell Distribution Width 14.4 % (11.5-14.5); White Blood Count 3.2 K/mm3 (4.5-10.0)
[2021-04-13 06:34] LABS: Alanine Aminotransferase 15 U/L (4-35); Albumin Level 3.6 g/dL (3.5-5.1); Alkaline Phosphatase 58 U/L (38-126); Anion Gap 6 mmol/L (8-16); Aspartate Amino Transferase 22 U/L (14-36); Bilirubin,Total 0.6 mg/dL (0.2-1.3); Blood Urea Nitrogen 17 mg/dL (7-17); Carbon Dioxide 29 mmol/L (22-30); Chloride 103 mmol/L (98-107); Estimated CRCL calculation 43 ml/min; Estimated Glomerular Filt Rate > 60; Glucose 150 mg/dL (65-110); Sodium 138 mmol/L (137-145)
--- NOTE | 2021-04-13 07:47 | PM.PNCARD ---
Progress Note: A&P Assessment and Plan (1) Dizziness: Code(s): R42 - Dizziness and giddiness Status: Acute Assessment and Plan: Probably related to a very narrow window of being in euvolemic range. Recommend keeping baseline BP in high normal range 130-150 systolic to prevent BP from dropping below 100 while seated or upright to prevent symptoms. Decrease Losartan 12.5 mg daily and Toprol XL 12.5 mg daily. Losartan currently on hold. Would need low dose Lasix to keep in euvolemic range. (2) Combined systolic and diastolic congestive heart failure: Code(s): I50.40 - Unspecified combined systolic (congestive) and diastolic (congestive) heart failure Status: Acute Assessment and Plan: On Toprol and Losartan. Limited echo shows similar findings as Feb 2021 echo with EF 35-40%. (3) PAT (paroxysmal atrial tachycardia): Code(s): I47.1 - Supraventricular tachycardia Status: Acute Assessment and Plan: Resolved with Amiodarone with normal QT interval. (4) PVT (paroxysmal ventricular tachycardia): Code(s): I47.2 - Ventricular tachycardia Status: Acute Assessment and Plan: Resolved with Amiodarone with normal QT interval. On low dose Amiodarone 100 mg daily due to mildly bradycardic with HR in 50's bpm. (5) CAD (coronary artery disease), autologous vein bypass graft: Code(s): I25.810 - Atherosclerosis of coronary artery bypass graft(s) without angina pectoris Status: Acute Assessment and Plan: Stable. (6) Dyslipidemia: Code(s): E78.5 - Hyperlipidemia, unspecified Status: Acute Assessment and Plan: On Pravastatin. (7) Elevated troponin: Code(s): R77.8 - Other specified abnormalities of plasma proteins Status: Acute Assessment and Plan: Asymptomatic from this. Mildly elevated and flat at .095, and was elevated to this extent in Feb 2021. Probably related to UTI, systolic heart failure. No further cardiac workup needed for this. (8) Acute UTI: Code(s): N39.0 - Urinary tract infection, site not specified Status: Acute Assessment and Plan: Management as per hospitalist. Subjective Date/time seen: 04/13/21 07:47 Denies chest pain or sob. Exam Const: General: cooperative, healthy appearing and comfortable Resp: Auscultation: clear to auscultation bilaterally, no crackles, no rales, no rhonchi and no wheezes Cardio: Jugular venous distension: no JVD Rate: regular rate Rhythm: regular rhythm Heart sounds: no murmurs Peripheral pulses: dorsalis pedis present GI: GI Palp: No abdominal tenderness and Yes Soft to palpation Neuro: General: oriented to person, oriented to place and oriented to time Extrem: Right lower extremity: no edema Left lower extremity: no edema Objective Data Vital Signs Vital Signs: Vital Signs - 24 hr 04/12/21 08:00 04/12/21 09:00 04/12/21 09:22 Temperature Pulse Rate 59 L 74 Respiratory Rate Blood Pressure Pulse Oximetry 93 04/12/21 11:03 04/12/21 12:00 04/12/21 15:01 Temperature 97.9 F Pulse Rate 61 60 61 Respiratory Rate 16 Blood Pressure 119/48 L Pulse Oximetry 93 04/12/21 16:00 04/12/21 20:00 04/12/21 20:13 Temperature Pulse Rate 62 70 Respiratory Rate 18 Blood Pressure Pulse Oximetry 92 95 04/12/21 22:00 04/13/21 00:00 04/13/21 04:00 Temperature 98.1 F Pulse Rate 65 65 68 Respiratory Rate 18 Blood Pressure 130/59 L Pulse Oximetry 92 04/13/21 06:00 Temperature 97.9 F Pulse Rate 67 Respiratory Rate 18 Blood Pressure 136/66 Pulse Oximetry 95 Intake/Output Intake/Output: Intake & Output 04/10/21 04/11/21 04/12/21 04/13/21 23:59 23:59 23:59 23:59 Intake Total 3384 435 9166 200 Balance 7951 806 4140 200 Meds/Results Medications: Active Medications Generic Name Dose Route Start Last Admin Trade Name Freq PRN Reason Stop Dose Admin Acetaminophen 500 mg
[2021-04-13 08:01] LABS: Glucose Point of Care 147 mg/dl (65-105)
[2021-04-13] MEDS: AMIODARONE HCL 100 MG TABLET PO (09:49)
[2021-04-13] MEDS: PRAVASTATIN SODIUM 10 MG TABLET PO (09:50)
[2021-04-13] MEDS: ASPIRIN 81 MG ENTERIC TABLET PO (09:50)
[2021-04-13] MEDS: GABAPENTIN 100 MG CAPSULE 200 MG PO (09:50)
[2021-04-13] MEDS: ENOXAPARIN 40 MG/0.4 ML SYRINGE SUB-Q (09:50)
[2021-04-13] MEDS: SENNA/DOCUSATE SODIUM TABLET 1 TAB PO (09:50)
[2021-04-13] MEDS: METOPROLOL SUCCINATE EXT REL 12.5 MG TABCR PO (09:50)
[2021-04-13] MEDS: PANTOPRAZOLE 40 MG TABLET PO (09:50)
[2021-04-13] MEDS: THERAPEUTIC MULTIVITAMINS/MINERALS TAB (*BKC) 1 TABLET PO (09:50)
--- NOTE | 2021-04-13 10:33 | P.DS_ITS ---
DS: Admitting Diagnosis Discharge Date Date of Service: 04/13/21 10:05 Admitting Diagnosis UTI DS: Discharge Diagnosis Discharge Diagnosis (1) Sepsis: Qualifiers: Sepsis acute organ dysfunction status: unspecified Sepsis type: sepsis due to unspecified organism Qualified Code(s): A41.9 - Sepsis, unspecified organism Code(s): A41.9 - Sepsis, unspecified organism Status: Acute Assessment and Plan: * In the setting of UTI with leukocytosis, hypotension and elevated lactic acid all of which has resolved * continue ertapenem today will be day 5 * Culture from 04/08/21 was contaminated, Repeat culture had no growth * blood cultures no growth to date * recently had ESBL UTI 03/10/2021 (2) Abnormal urinalysis: Code(s): R82.90 - Unspecified abnormal findings in urine Status: Acute Assessment and Plan: * As above * continue ertapenem day 5 * No complaints of urgency or frequency (3) Acute respiratory failure: Qualifiers: Respiratory failure complication: hypoxia Qualified Code(s): J96.01 - Acute respiratory failure with hypoxia Code(s): J96.00 - Acute respiratory failure, unspecified whether with hypoxia or hypercapnia Status: Acute Assessment and Plan: * Acute respiratory failure with hypoxia. Unclear etiology at this time * CTA negative for evidence of pulmonary edema, PE, or pneumonia (04/08/21) * apnea link does not show any evidence of EDNA but does show hypoxia at night * Apnea link on 2LNC shows AHI to be 1 which is normal * Probably needs 2LNC with sleeping (4) Combined systolic and diastolic congestive heart failure: Code(s): I50.40 - Unspecified combined systolic (congestive) and diastolic (congestive) heart failure Status: Acute Assessment and Plan: * Appears euvolemic * Continue lasix and metropolol * Hold losartan at this time * Cardiology on board * Limited echo pending * Echo from 03/04/21 shows ef of 35-40% with grade 1 diastolic dysfunction, Left ventricular systolic function is moderately reduced * Strict I/Os (5) Macrocytic anemia: Code(s): D53.9 - Nutritional anemia, unspecified Status: Acute Assessment and Plan: * Chronic and stable. * H/H 10.3/30.9, MCV 115.7 * B12 and folate last month was within normal limits * Trend labs (6) Type 2 diabetes mellitus: Code(s): E11.9 - Type 2 diabetes mellitus without complications Status: Acute Assessment and Plan: * Last glucose 150 * continue Januvia and sliding scale insulin * Trend labs * Adjust medications as needed (7) Elevated troponin: Code(s): R77.8 - Other specified abnormalities of plasma proteins Status: Acute Assessment and Plan: * Trops 0.095 x 2 which are flat * Seems to be chronically elevated * Probably related to hypervolemia * Cardiology on board * EKG SB with 1st degree heart block (8) Near syncope: Code(s): R55 - Syncope and collapse Status: Acute Assessment and Plan: * Slumped over with lightheadedness and dizziness while up eating in the chair * BP noted to be 152/68 * Losartan on hold for now * Trend BP * Medications adjusted down * Cards on board * Cards recommends keeping systolic BP at 130-150s to buffer when she sits and stands. DS: Summary Hospital Course Hospital Course: This is a pleasant 85
--- NOTE | 2021-04-13 10:33 | PM.DS ---
DS: Admitting Diagnosis Discharge Date Date of Service: 04/13/21 10:05 Admitting Diagnosis UTI DS: Discharge Diagnosis Discharge Diagnosis (1) Sepsis: Qualifiers: Sepsis acute organ dysfunction status: unspecified Sepsis type: sepsis due to unspecified organism Qualified Code(s): A41.9 - Sepsis, unspecified organism Code(s): A41.9 - Sepsis, unspecified organism Status: Acute Assessment and Plan: In the setting of UTI with leukocytosis, hypotension and elevated lactic acid all of which has resolved continue ertapenem today will be day 5 Culture from 04/08/21 was contaminated, Repeat culture had no growth blood cultures no growth to date recently had ESBL UTI 03/10/2021 (2) Abnormal urinalysis: Code(s): R82.90 - Unspecified abnormal findings in urine Status: Acute Assessment and Plan: As above continue ertapenem day 5 No complaints of urgency or frequency (3) Acute respiratory failure: Qualifiers: Respiratory failure complication: hypoxia Qualified Code(s): J96.01 - Acute respiratory failure with hypoxia Code(s): J96.00 - Acute respiratory failure, unspecified whether with hypoxia or hypercapnia Status: Acute Assessment and Plan: Acute respiratory failure with hypoxia. Unclear etiology at this time CTA negative for evidence of pulmonary edema, PE, or pneumonia (04/08/21) apnea link does not show any evidence of EDNA but does show hypoxia at night Apnea link on 2LNC shows AHI to be 1 which is normal Probably needs 2LNC with sleeping (4) Combined systolic and diastolic congestive heart failure: Code(s): I50.40 - Unspecified combined systolic (congestive) and diastolic (congestive) heart failure Status: Acute Assessment and Plan: Appears euvolemic Continue lasix and metropolol Hold losartan at this time Cardiology on board Limited echo pending Echo from 03/04/21 shows ef of 35-40% with grade 1 diastolic dysfunction, Left ventricular systolic function is moderately reduced Strict I/Os (5) Macrocytic anemia: Code(s): D53.9 - Nutritional anemia, unspecified Status: Acute Assessment and Plan: Chronic and stable. H/H 10.3/30.9, MCV 115.7 B12 and folate last month was within normal limits Trend labs (6) Type 2 diabetes mellitus: Code(s): E11.9 - Type 2 diabetes mellitus without complications Status: Acute Assessment and Plan: Last glucose 150 continue ia and sliding scale insulin Trend labs Adjust medications as needed (7) Elevated troponin: Code(s): R77.8 - Other specified abnormalities of plasma proteins Status: Acute Assessment and Plan: Trops 0.095 x 2 which are flat Seems to be chronically elevated Probably related to hypervolemia Cardiology on board EKG SB with 1st degree heart block (8) Near syncope: Code(s): R55 - Syncope and collapse Status: Acute Assessment and Plan: Slumped over with lightheadedness and dizziness while up eating in the chair BP noted to be 152/68 Losartan on hold for now Trend BP Medications adjusted down Cards on board Cards recommends keeping systolic BP at 130-150s to buffer when she sits and stands. DS: Summary Hospital Course Hospital Course: This is a pleasant 85-year-old female with history of dementia, coronary artery disease, congestive heart failure, aortic stenosis, and diabetes who presented to the emergency department earlier from [facility] for evaluation of shortness of breath. She has had many admissions as of late surrounding UTIs. Patient was treated with 5 days of Ertapenem. New cultures did not have any growth. She did also have a syncopal episode on 04/11/21 while sitting in the chair eating. This syncopal event did encourage the need for a cardiology consult which then led to some adjustment
--- NOTE | 2021-04-13 10:39 | PC.NURSE ---
On 04/13/21, the student, [ Sailaja Rolle], provided care and completed [facility] documentation on this patient. I have reviewed the student's documentation and agree with the findings.
--- NOTE | 2021-04-13 11:17 | PCRCNOTE ---
YESSICA WRITTEN FOR NOCTURNAL HOME O2 SET UP, WILL ARRANGE WITH DME. NO NEED TO WAIT FOR TRANSPORT TANK. DME WILL FOLLOW UP WITH PT/FAMILY
[2021-04-13 11:50] LABS: Glucose Point of Care 134 mg/dl (65-105)
[2021-04-13 12:27] LABS: EDCOVIDSCREEN Negative (Negative)
== END 2021-04-13 14:30 | DRG 871 ==
LOC: ANHED 13:04 → ANH3MEDSUR 04-09 03:42 → ANH2MED 04-15 10:51 → ANH3MEDSUR 04-15 10:51
PROVIDERS: Internal Medicine; Nurse Practitioner; Physician Assistant; Admitting Provider Internal Medicine; Emergency Provider Emergency Medicine; PCP Family Medicine; Visit Provider Physician Assistant
DX: A41.9 Sepsis, unspecified organism (principal); J96.01 Acute respiratory failure with hypoxia; I50.42 Chronic combined systolic (congestive) and diastolic (congestive) heart failure; N39.0 Urinary tract infection, site not specified; I69.354 Hemiplegia and hemiparesis following cerebral infarction affecting left non-dominant side; I47.1 Supraventricular tachycardia; Z66 Do not resuscitate; I25.10 Atherosclerotic heart disease of native coronary artery without angina pectoris; I11.0 Hypertensive heart disease with heart failure; E11.9 Type 2 diabetes mellitus without complications; I35.0 Nonrheumatic aortic (valve) stenosis; Z95.1 Presence of aortocoronary bypass graft; Z86.16 Personal history of COVID-19; Z20.822 Contact with and (suspected) exposure to COVID-19; F03.90 Unspecified dementia, unspecified severity, without behavioral disturbance, psychotic disturbance, mood disturbance, and anxiety; D53.9 Nutritional anemia, unspecified; Z79.82 Long term (current) use of aspirin; Z79.4 Long term (current) use of insulin; R55 Syncope and collapse; E78.5 Hyperlipidemia, unspecified; R77.8 Other specified abnormalities of plasma proteins
CPT/HCPCS: 36415; 51701; 71045; 71046; 71275; 74176; 80048; 80053; 80076; 81001; 82948; 83605; 83735; 83880; 84484; 85025; 85027; 85055; 85380; 85610; 85730; 87040; 87086; 87088; 87426; 93005; 93308; 93970; 94640; 94762; 96365; 96375; 97110; 97161; 97165; 97530; 99285; A9270; C8924; C9803; J1100; J1335; J1650; J1940; J2543; J7040; J7120; Q9957; Q9967

== ENCOUNTER 2021-10-29 10:15 | Observation (INO) | payer MEDICARE, OTHER, MEDICAID, SELFPAY ==
--- NOTE | ~2021-10-29 | CT_ITS ---
EXAMINATION: CT brain wo con DATE: 10/29/2021 13:32 INDICATION: Altered mental status TECHNIQUE: Computed tomography (CT) of the head was performed without intravenous contrast. The dose- length product was 605.33 mGy-cm. Automated exposure control and iterative reconstruction technique w ere employed. COMPARISON: CT dated 03/10/2021 FINDINGS: No acute intracranial hemorrhage, infarction, mass or mass effect. There is intracranial at herosclerosis. 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 There are scattered moderate periventricu lar and subcortical white matter changes, most likely related to small vessel ischemic disease (micro angiopathy). No acute intracranial hemorrhage, infarction, mass or mass effect. No midline shift. Sta ble mild prominence of the ventricles. Basilar cisterns are patent. IMPRESSION: 1. No acute intracranial abnormality. No significant interval change. Reviewed, dictated and finalized at location B.
--- NOTE | ~2021-10-29 | CT_ITS ---
EXAMINATION: CT abdomen pelvis w con DATE: 10/29/2021 13:33 INDICATION: Diffuse abdominal tenderness TECHNIQUE: Computed tomography (CT) of the abdomen and pelvis was performed with 100 mL Omnipaque-300 intravenous contrast. Automated exposure control and iterative reconstruction technique were employe d. The dose-length product was 1268.09 mGy-cm. COMPARISON: 04/10/2021 FINDINGS: Small bilateral pleural effusions with dependent compressive atelectasis at the bilateral lower lobes . Calcified right hilar lymph nodes consistent with old granulomatous disease. Cardiomegaly. Atherosc lerotic coronary artery calcific lesions and change of prior median sternotomy and coronary artery by pass grafting. Likely stenting along the circumflex coronary artery. Aortic valve calcification. Small amount of high attenuation material likely either sludge or gallstones at the dependent neck of the otherwise normal-appearing gallbladder. Liver is normal. No intra or extra hepatic biliary ducta l dilation. Calcification focal scarring along the spleen likely sequela of prior infarct or trauma. Bilateral adrenal glands and right kidney are normal. 3.7 cm exophytic cyst at the posterior left kid rogerio. There is mild colonic diverticulosis with a sigmoid predominance. There is no adjacent inflamma tory change to suggest diverticulitis. 7 cm diameter ball of stool at the rectum. Small bowel and pelon endix are normal. There is calcified extensive atherosclerosis of the aorta and many of the other art eries. Small fat-containing umbilical hernia. No pathologically enlarged abdominal or pelvic lymphade nopathy. Thoracolumbar levoscoliosis with severe spondylosis. The uterus is not identified and has likely been surgically resected. There is a likely Molina cathete r which is positioned within the vaginal vault. Again seen is a 3.7 x 2.8 x 1.5 similar calcific dens ity potentially heterotopic ossification along the anterior vaginal wall versus potentially injectabl e bulking agent for treatment of incontinence. A couple smaller collection more dense material within a U-shaped configuration at the base of the bladder near the expected location of the origin of the urethra similarly could represent mural calcification, injectable bulking agent or bladder stones. No free intraperitoneal gas or fluid. IMPRESSION: 1. No acute intra-abdominal/pelvic process. 2. Likely Molina catheter within the vaginal vault 3. Calcific densities near the base of the bladder and anterior vaginal wall which could represent he terotopic ossicles/dystrophic calcification, injectable bulking agent for treatment of urinary incont inence and for the former would also include bladder stones on the differential. Correlate with clini rich/surgical history. 4. Small amount of sludge versus gallstones in the otherwise normal gallbladder. Reviewed, dictated and finalized at location A. IMPRESSION: 1. No acute intra-abdominal/pelvic process. 2. Likely Molina catheter within the vaginal vault 3. Calcific densities near the base of the bladder and anterior vaginal wall wh ich could represent heterotopic ossicles/dystrophic calcification, injectable b ulking agent for treatment of urinary incontinence and for the former would als o include bladder stones on the differential. Correlate with clinical/surgical history. 4. Small amount of sludge versus gallstones in the otherwise normal gallbladder .
--- NOTE | ~2021-10-29 | XR_ITS ---
EXAMINATION: XR chest 1V portable DATE: 10/29/2021 12:52 INDICATION: Weakness. TECHNIQUE: A single frontal view of the chest was obtained. COMPARISON: Chest single view 04/11/2021, CT abdomen and pelvis 04/10/2021 FINDINGS: The patient is rotated to her right. There are airspace opacities in the lower lung zones. No pleural effusion or pneumothorax. Cardiomegaly is noted. IMPRESSION: 1. Airspace opacities in the lower lung zones, likely mild atelectasis. 2. Cardiomegaly. Reviewed, dictated and finalized at location A.
[2021-10-29 10:23] VITALS: BP 168/76; PULSE 94; RESP 21; O2SAT 99
[2021-10-29 10:35] VITALS: BP 168/76; PULSE 94; RESP 20; TEMP 37.4; O2SAT 95
[2021-10-29 10:47] VITALS: BP 139/69; PULSE 87; RESP 23; O2SAT 91
--- NOTE | 2021-10-29 11:25 | PC.NURSE ---
failed attempt to straight cath patient.
--- NOTE | 2021-10-29 12:04 | ECG_ITS ---
Measurements Intervals [place] Rate: 84 P: 38 CT: 242 QRS: 31 QRSD: 149 T: -12 QT: 426 QTc: 506 Interpretive Statements SINUS RHYTHM WITH FIRST DEGREE AV BLOCK VENTRICULAR PREMATURE COMPLEX RIGHT BUNDLE BRANCH BLOCK INFERIOR INFARCT, AGE INDETERMINATE BASELINE WANDER- V6 ABNORMAL ECG Electronically Signed On 10-29-2021 13:03:37 CDT by Richie Scott D.O.
[2021-10-29 12:44] LABS: Basophils Percent Auto 0.4 % (0.2-1.2); Eosinophils Absolute Auto 0.2 K/mm3 (0-0.3); Hematocrit 29.9 % (37.0-47.0); Hemoglobin 10.2 g/dL (12.0-15.0); Immature Granulocyte Absolute 0.01 K/mm3 (0.00-0.031); Immature Granulocyte Percent A 0.2 % (0-0.5); Lymphocytes Absolute Auto 0.97 K/mm3 (0.9-3.2); Lymphocytes Percent Auto 19.3 % (18.3-44.2); Mean Corpuscular HGB Conc 34.1 g/dl (32-36); Mean Corpuscular Hemoglobin 39.4 pg (26-34); Mean Corpuscular Volume 115.4 fl (80-100); Mean Platelet Volume 12.2 fl (7.4-10.4); Monocytes Absolute Auto 0.4 K/mm3 (0.1-0.6); Neutrophils Absolute Auto 3.5 K/mm3 (1.3-6.7); Neutrophils Percent Auto 70.1 % (45.5-73.1); Platelet Count Result 269 k/mm3 (150-375); Red Blood Count 2.59 M/mm3 (4.2-5.4); Red Cell Distribution Width 14.7 % (11.5-14.5)
--- NOTE | 2021-10-29 12:50 | ED.AMS ---
HPI - Altered Mental Status General Chief Complaint: Altered Mental Status Stated Complaint: DECREASED LOC AND NOW NON VERBAL Time Seen by Provider: 10/29/21 12:27 Source: patient, family and RN notes reviewed Mode of arrival: EMS Limitations: altered mental status History of Present Illness HPI narrative: This is an 85 year old female with history of hypertension, CHF, dementia, UTI who presents for evaluation of altered mental status. Patient's daughter is at bedside. She states patient is normally oriented x 2. Today patient will not talk but she will nod her head yes and no. Her daughter states she was diagnosed with UTI and she has been on antibiotics since Monday. Patient shakes her head yesterday to abdominal pain. Daughter also states she told her that her chest hurt with coughing earlier. She denies nausea, vomiting, fever, chills. Daughter states she has not been told patient has been having fever , diarrhea, vomiting or recent fall. Related Data Home Medications Medication Instructions Recorded Confirmed Januvia 100 mg PO DAILY 03/03/21 10/29/21 acetaminophen 500 mg PO Q6H PRN 03/03/21 10/29/21 alum-mag hydroxide-simeth 30 ml PO Q6H PRN 03/03/21 10/29/21 [Rani-Mox Antacid-Antigas] aspirin 81 mg PO DAILY 03/03/21 10/29/21 baclofen 10 mg PO TID 03/03/21 10/29/21 estradiol See Rx Instructions .ROUTE .COMPLEX 03/03/21 10/29/21 gabapentin 200 mg PO BID 03/03/21 10/29/21 multivitamin with minerals 1 tablet PO DAILY 03/03/21 10/29/21 omeprazole 20 mg PO BID 03/03/21 10/29/21 ondansetron 4 mg PO Q8H PRN 03/03/21 10/29/21 polyethylene glycol 3350 [Miralax] 17 g PO DAILY 03/03/21 10/29/21 sennosides-docusate sodium 1 tablet PO DAILY 03/03/21 10/29/21 [Senexon-S] nitrofurantoin monohyd/m-cryst 100 mg PO Q12H 04/08/21 10/29/21 [Macrobid] Allergies Allergy/AdvReac Type Severity Reaction Status Date / Time codeine Allergy Unknown Verified 04/15/21 11:49 metformin Allergy Unknown Verified 04/15/21 11:49 lisinopril AdvReac Unknown Verified 04/15/21 11:49 morphine AdvReac Dizziness Verified 04/15/21 11:49 Review of Systems Review of Systems: ROS unobtainable: Yes unobtainable due to mental status [facility] Past Medical History Medical History (Updated 10/29/21 @ 22:01 by Bibiana Jade MD) Altered mental status (~02/2021) [place] to be related to urinary tract infection. 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 Arthritis Combined systolic and diastolic congestive heart failure Echocardiogram on 03/04/2021 showed a moderately reduced left ventricular systolic function with an EF of 35 to 40% and grade 1 diastolic dysfunction. Coronary artery disease COVID-19 (02/2020) Dementia Hypertension Macrocytic anemia B12, folate levels normal in February 2021. Iron level was elevated. Moderate aortic stenosis Aortic valve area of 1.47 cm2 on 03/04/2021. Type 2 diabetes mellitus Hemoglobin A1c was 7.0% in February 2021. Urinary tract infection due to extended-spectrum beta lactamase (ESBL) producing Escherichia coli (02/2021) Surgical History Surgical History (System 04/15/21 @ 11:49 by Irma Oneill) History of coronary artery bypass graft (2007) Five vessel bypass. Family History Family History Father Heart disease Mother Alzheimer disease Social History Social History (System 04/15/21 @ 11:49 by Irma Oneill) Social History: Ms. Cocuh lives at [facility]. 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 Yan Scott. She has 2 adult children. She designates her daughter, Sally, as her surrogate decision maker. She requests DNR status. No tobacco, alcohol or drug use. Smoking status: Never smoker Spiritual care concerns: No Exam Const: General: no acute distress and alert HENMT: Head: normocephalic and atraumatic General nose exam: Normal external n
[2021-10-29 12:55] LABS: INR 1.3; Partial Thromboplastin Time 33.6 SECONDS (22.3-36.8); Prothrombin Time 15.5 Seconds (11.1-14.7)
[2021-10-29 12:57] LABS: Alanine Aminotransferase 15 U/L (6-35); Albumin Level 4.1 g/dL (3.5-5.1); Alkaline Phosphatase 73 U/L (38-126); Anion Gap 8 mmol/L (8-16); Aspartate Amino Transferase 23 U/L (14-36); Bilirubin,Total 0.8 mg/dL (0.2-1.3); Blood Urea Nitrogen 13 mg/dL (7-17); Calcium 8.6 mg/dL (8.4-10.2); Carbon Dioxide 26 mmol/L (22-30); Chloride 99 mmol/L (98-107); Estimated CRCL calculation 49 ml/min; Estimated Glomerular Filt Rate > 60; Glucose 147 mg/dL (65-110); Potassium 4.2 mmol/L (3.4-5.0); Sodium 133 mmol/L (137-145)
[2021-10-29 13:03] LABS: Anisocytosis 1+ (NORMAL); Hypochromasia 2+ (NORMAL); Platelet Estimate Adequate (Adequate)
[2021-10-29 13:04] LABS: Microcytosis 1+ (NORMAL); Poikilocytosis 1+ (NORMAL)
--- NOTE | 2021-10-29 13:23 | PC.NURSE ---
1300 unable to straight cath patient. failed attemp x 2
[2021-10-29] MEDS: SODIUM CHLORIDE 0.9% IV 1,000 ML 999 ML IV CONT (13:38)
[2021-10-29 13:41] LABS: Troponin I 0.065 ng/mL (0.000-0.034)
[2021-10-29 14:07] LABS: Appearance Urine Cloudy (Clear); Bilirubin Urine Negative (Negative); Blood Urine 2+ (Negative); Glucose Urine UA Negative (Negative); Ketones Urine Negative (Negative); Leukocyte Esterase Ur 1+ LEU/UL (Negative); Nitrate Urine Negative (Negative); Protein Urine 1+ mg/dL (Negative); Urobilinogen Urine 0.2 mg/dL (<2.0); pH Urine >=9.0 (5.0-9.0)
[2021-10-29 14:11] LABS: Bacteria Urine Trace /hpf; Budding Yeast Urine Present /hpf; RBC Urine 51-75 /hpf (0-2); Squamous Epithelial Cell Urine Moderate /hpf (Few); WBC Urine 51-75 /hpf
[2021-10-29 14:26] LABS: Add Urine Microscopic? YES; Color Urine Light Yellow (Yellow)
[2021-10-29 15:36] LABS: SARS-CoV-2 RNA PCR Negative
[2021-10-29 15:42] LABS: Glucose Point of Care 138 mg/dl (65-105)
--- NOTE | 2021-10-29 16:30 | PM.IMHP ---
H&P: HPI History of Present Illness Date/Time: 10/29/21 16:30 Chief Complaint: Altered mental status. Narrative: This is an 85-year-old female with history of frequent urinary tract infections, congestive heart failure, coronary artery disease, aortic stenosis, diabetes, and other comorbidities who presented to the emergency department from [facility] for evaluation of altered mental status. Due to her dementia she is only a fair historian and as such some of the following is obtained via a review of her electronic medical records as well as discussions with her daughter, with the patient's permission. At baseline the patient is alert and oriented x2 and can typically hold a conversation though she is at times confused. This morning she was not responding much to staff aside from an occasional nod or shake of her head and she was brought in for evaluation. According to the daughter, the patient was diagnosed with the UTI on Monday and she has been on antibiotics since that time. The patient is incontinent and is difficult for her to tell me if she has had increased urinary frequency, urgency, or hesitancy. She denies overt dysuria however she does complain of suprapubic tenderness which is worse with palpation and movement. Vital signs were stable on arrival to the emergency department. White blood cell count was normal. Urine was cloudy with a pH of greater than 9.0, 1+ leukocyte esterase, 51 to 75 wbc's, trace bacteria, budding yeast, and moderate squamous cells. A subsequent CT of the abdomen and pelvis showed calcific densities near the base of the bladder of unclear significance. She is being admitted in this setting for further evaluation. Currently her only complaint is that of being hungry as she did not have anything to eat today. She denies fever, chills, sweats, cold and flu symptoms, chest pain, shortness breath, nausea, vomiting, and diarrhea. Review of Systems Review of Systems: Twelve systems were reviewed. Given her dementia I am not certain that her answers were completely accurate however she did state no to every question asked aside from what is documented in the HPI. [facility] Past Medical History Medical History (Updated 10/29/21 @ 23:42 by Michelle Sosa PA-C) Altered mental status (~02/2021) [place] to be related to urinary tract infection. 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 Arthritis Combined systolic and diastolic congestive heart failure Echocardiogram on 03/04/2021 showed a moderately reduced left ventricular systolic function with an EF of 35 to 40% and grade 1 diastolic dysfunction. Coronary artery disease COVID-19 (02/2020) Dementia Hypertension Macrocytic anemia B12, folate levels normal in February 2021. Iron level was elevated. Moderate aortic stenosis Aortic valve area of 1.47 cm2 on 03/04/2021. Paroxysmal atrial tachycardia Type 2 diabetes mellitus Hemoglobin A1c was 7.0% in February 2021. Urinary tract infection due to extended-spectrum beta lactamase (ESBL) producing Escherichia coli (02/2021) Surgical History Surgical History History of coronary artery bypass graft (2007) Five vessel bypass. Family History Family History Father Heart disease Mother Alzheimer disease Social History Social History (Updated 10/29/21 @ 23:36 by Michelle Sosa PA-C) Social History: Ms. Couch lives at [facility]. 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 She designates her daughter, Sally, as her surrogate decision maker. She requests DNR status. No tobacco, alcohol or drug use. Spiritual care concerns: No Meds Home Medications and Allergies Home Medications Medication Instructions Recorded Confirmed Type Januvia 100 mg PO DAILY 03/03/21 10/29/21 History acetaminophen 500 mg PO Q6H PRN 03/03/21 10/29/21 History alum
[2021-10-29 16:38] LABS: Troponin I 0.063 ng/mL (0.000-0.034)
--- NOTE | 2021-10-29 18:49 | ADMGEN ---
This patient, Shireen Couch, was admitted to Medical Room 343-01. Patient/family oriented to hospital policies and general routines including ID bracelet, bed and alarms, visiting hours, pain management, procedures, bathroom and other care routines, personal items, smoking policy, room service/diet, and visiting hours. Information on how to activate the Rapid Response Team has been discussed. Patient/Family are encouraged to report perceived risks to care and to ask questions if they do not understand what they are told or what they should do.
[2021-10-29 20:00] VITALS: PULSE 91
--- NOTE | 2021-10-29 20:44 | PC.NURSE ---
This patient, Shireen Couch, was admitted to Medical Room 343-01. Patient/family oriented to hospital policies and general routines including ID bracelet, bed and alarms, visiting hours, pain management, procedures, bathroom and other care routines, personal items, smoking policy, room service/diet, and visiting hours. Information on how to activate the Rapid Response Team has been discussed. Patient/Family are encouraged to report perceived risks to care and to ask questions if they do not understand what they are told or what they should do. Pt will talk at times and other times with just shake her head yes and no.
[2021-10-29 20:56] LABS: Glucose Point of Care 142 mg/dl (65-105)
[2021-10-29 22:00] VITALS: BP 156/95; PULSE 88; RESP 20; TEMP 36.7; O2SAT 94
[2021-10-30] VITALS (17 sets, daily range): BP systolic 134–169; BP diastolic 59–128; PULSE 69–210; RESP 18–35; TEMP 35.9–36.7; O2SAT 93–100
[2021-10-30 01:00] LABS: Glucose Point of Care 186 mg/dl (65-105)
--- NOTE | 2021-10-30 01:09 | ECG_ITS ---
Measurements Intervals [place] Rate: 83 P: 132 ME: 245 QRS: 137 QRSD: 146 T: 192 QT: 413 QTc: 487 Interpretive Statements SINUS RHYTHM WITH FIRST DEGREE AV BLOCK VENTRICULAR PREMATURE COMPLEXES ARM LEADS REVERSED RIGHT BUNDLE BRANCH BLOCK INFERIOR INFARCT, AGE INDETERMINATE BASELINE ARTIFACT- I, II, III, AVR, AVL, AVF, V2-V6 ABNORMAL ECG Electronically Signed On 10-30-2021 7:03:47 CDT by Richie Scott D.O.
[2021-10-30 02:14] LABS: Anion Gap 9 mmol/L (8-16); Blood Urea Nitrogen 13 mg/dL (7-17); Calcium 8.4 mg/dL (8.4-10.2); Carbon Dioxide 24 mmol/L (22-30); Chloride 102 mmol/L (98-107); Estimated CRCL calculation 57 ml/min; Estimated Glomerular Filt Rate > 60; Glucose 164 mg/dL (65-110); Sodium 135 mmol/L (137-145)
[2021-10-30 02:55] LABS: Phosphorus 3.9 mg/dL (2.5-4.5)
--- NOTE | 2021-10-30 07:42 | ECG_ITS ---
Measurements Intervals [place] Rate: 150 P: 150 WI: 178 QRS: 110 QRSD: 154 T: -66 QT: 349 QTc: 553 Interpretive Statements ECTOPIC ATRIAL TACHYCARDIA WITH INTERMITTENT NONSUSTAINED VENTRICULAR TACHYCARDIA VENTRICULAR PREMATURE COMPLEXES RIGHT BUNDLE BRANCH BLOCK LEFT POSTERIOR FASCICULAR BLOCK BASELINE WANDER- V1 ABNORMAL ECG Electronically Signed On 10-30-2021 7:54:58 CDT by Richie Scott D.O.
[2021-10-30] MEDS: AMIODARONE 150 MG/D5W 100 ML 150 MG/100 ML BAG 600 MG IV CONT (07:50)
[2021-10-30 08:14] LABS: Glucose Point of Care 227 mg/dl (65-105)
[2021-10-30] MEDS: AMIODARONE 360 MG/D5W 200 ML 360 MG/200 ML BAG 33.33 MG IV CONT (08:19)
--- NOTE | 2021-10-30 08:33 | PC.NURSE ---
Provider called about patient condition (see provider communication note). Rapid response was called on the patient to get patient treated/moved quickly despite DNR status. Patient was moved to IMU room 214 and report was given to BABAK Coker. Patient's POA was called and informed about the move to IMU and informed that she is in very unstable condition and to come in right away.
--- NOTE | 2021-10-30 08:33 | PC.NURSE ---
0830--- @0810 received pt from [facility]rd medical- post rapid response call; Pt awake/ alert moaning- RR 28 labored O2 on 15 liters high flow- monitor HR 120's-103 frequent PVC's,short runs V- tach; BP 158/113;cardiology notified- IV amiodarone bolus completed upon arrival to floor- orders to continue amiodarone protocol- 0819 IV amiodarone 1mg/min stated as ordered; Skin diaphoretic, cool- answers appropriate to name/place- denies pain in chest- but nods yes to nausea. 0825 Treva Chery APR at bedside to evaluate pt
--- NOTE | 2021-10-30 08:35 | PM.IMPN ---
Progress Note: A&P Assessment and Plan (1) Decreased responsiveness: Code(s): R41.89 - Other symptoms and signs involving cognitive functions and awareness Status: Acute Assessment and Plan: Aside from her whispering mumbles, the patient seems to be at her baseline at this time. (2) Abnormal urinalysis: Code(s): R82.90 - Unspecified abnormal findings in urine Status: Acute Assessment and Plan: CBC, CMP, UA, reviewed Obtain urine culture if needed Follow temp curve, cultures, WBC, and VS Ceftriaxone 1g IV daily (3) Abnormal computed tomography of abdomen and pelvis: Code(s): R93.5 - Abnormal findings on diagnostic imaging of other abdominal regions, including retroperitoneum Status: Acute Assessment and Plan: Consult Urology given suprapubic discomfort, abnormal UA, and findings of calcific densities noted near the base of the bladder. (4) Macrocytic anemia: Code(s): D53.9 - Nutritional anemia, unspecified Status: Acute Assessment and Plan: Previous anemia workup as per medical history. Hemoglobin and hematocrit are stable on review of previous labs. (5) Combined systolic and diastolic congestive heart failure: Code(s): I50.40 - Unspecified combined systolic (congestive) and diastolic (congestive) heart failure Status: Acute Assessment and Plan: She appears euvolemic on exam. Avoid over-hydration. (6) Type 2 diabetes mellitus: Code(s): E11.9 - Type 2 diabetes mellitus without complications Status: Acute Assessment and Plan: Continue Januvia. Initiate sliding scale insulin, Accu-Cheks, and hypoglycemic protocol. (7) Elevated troponin: Code(s): R77.8 - Other specified abnormalities of plasma proteins Status: Acute Assessment and Plan: Troponins appear to be mildly elevated at baseline. Appears to have a slightly elevated troponin at baseline however patient has developed nonsustained V-tach (8) Paroxysmal atrial tachycardia: Code(s): I47.1 - Supraventricular tachycardia Status: Acute Assessment and Plan: Currently in a sinus rhythm. Continue amiodarone. --transitioned into nonsustained V-tach (9) Non-sustained ventricular tachycardia: Code(s): I47.2 - Ventricular tachycardia Status: Acute Assessment and Plan: Continue amiodarone, bolus amiodarone dose administered at 7:42 a.m. followed by continuous Subjective Date/time seen: 10/30/21 08:35 Around 730 this morning I received a phone call from nursing staff stating the patient was in V-tach. Patient has had multiple episodes of V-tach during the night since 47. Now the patient is sustaining V-tach therefore amiodarone drip was ordered and Cardiology was consulted. The patient was moved to IMU. Upon evaluation the Patient is lying in bed and apparently appears to have expressive aphasia although when asked question she is able to point. Patient was able to point to her abdomen which appeared be painful as when asked if she was nauseated she reported yes. Patient was also agreeable that she felt a flutter in her chest. She denied any other symptoms. She was able to squeeze my hand. She appeared diaphoretic at bedside. Family was notified of the patient's condition and will be arriving shortly. Patient is a DNR DNI and had refused lab draws apparently. Will wait for further recommendations by Cardiology. Review of Systems Review of Systems: All systems reviewed & are unremarkable except as noted in HPI and below Exam Narrative: General: Acute distress, diaphoretic, nonverbal Mental Status: Awake, alert and unable to express orientation, person place or time Skin: Skin in warm and intact without rashes or lesions. Diaphoretic Head: Normocephalic and atraumatic. Eyes: Conjunctivae are clear without exudates or hemorrhage. Sclera is non-icteric. EOM are intact, PERRL
[2021-10-30] MEDS: METOPROLOL TARTRATE INJ 5 MG/5 ML VIAL IV PUSH (09:31)
--- NOTE | 2021-10-30 10:12 | WPDURCON ---
Assessment and Plan Assessment and plan (1) Acute UTI: Code(s): N39.0 - Urinary tract infection, site not specified Status: Acute Additional Plan Agree with current management per hospital medicine, continue ceftriaxone until cultures result. When asked if I could examine her, she shakes her head no. Out of respect for her autonomy I will defer further examination. She would benefit from outpatient cystoscopy to evaluate for bladder stones which may be the source of her UTI. I agree with Molina at this time and it is currently draining clear yellow urine. Urology will sign off. Please call if further management questions or concerns arise. Urology Consult Note HPI Date Seen: 10/30/21 Requesting Physician: Isacc Clement MD Primary Care Provider: Yan Bland MD Consult Narrative Narrative: Shireen Couch is a 85 year old female admitted for UTI with altered mental status. She has a history of dementia and is a poor historian. While admitted she was found to be in sustained ventricular tachycardia and started on amiodarone drip. She has a history of recurrent UTI and her CT demonstrated that her Molina was within the vaginal vault as well as calcifications, likely dystrophic but possibly bladder stones noted at the bladder neck. Her catheter was replaced by floor nursing this morning. She is minimally verbal and whispers no while shaking her head when asked if I could examine her. Review of Systems Review of Systems: ROS unobtainable: Yes unobtainable due to mental status PMFSH Past Medical History Medical History (Updated 10/30/21 @ 08:41 by Treva Chery, DUMP TRUCK OPERATOR) Altered mental status (~02/2021) [place] to be related to urinary tract infection. 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 Arthritis Combined systolic and diastolic congestive heart failure Echocardiogram on 03/04/2021 showed a moderately reduced left ventricular systolic function with an EF of 35 to 40% and grade 1 diastolic dysfunction. Coronary artery disease COVID-19 (02/2020) Dementia Hypertension Macrocytic anemia B12, folate levels normal in February 2021. Iron level was elevated. Moderate aortic stenosis Aortic valve area of 1.47 cm2 on 03/04/2021. Paroxysmal atrial tachycardia Type 2 diabetes mellitus Hemoglobin A1c was 7.0% in February 2021. Urinary tract infection due to extended-spectrum beta lactamase (ESBL) producing Escherichia coli (02/2021) Surgical History Surgical History History of coronary artery bypass graft (2008) Five vessel bypass. Family History Family History Father Heart disease Mother Alzheimer disease Social History Social History (Updated 10/29/21 @ 23:36 by Michelle Sosa PA-C) Social History: Ms. Couch lives at [facility]. 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 She designates her daughter, Sally, as her surrogate decision maker. She requests DNR status. No tobacco, alcohol or drug use. Spiritual care concerns: No Meds Home Medications and Allergies Home Medications Medication Instructions Recorded Confirmed Type Januvia 100 mg PO DAILY 03/03/21 10/29/21 History acetaminophen 500 mg PO Q6H PRN 03/03/21 10/29/21 History alum-mag hydroxide-simeth 30 ml PO Q6H PRN 03/03/21 10/29/21 History [Rani-Mox Antacid-Antigas] aspirin 81 mg PO DAILY 03/03/21 10/29/21 History baclofen 10 mg PO TID 03/03/21 10/29/21 History estradiol See Rx Instructions .ROUTE .COMPLEX 03/03/21 10/29/21 History gabapentin 200 mg PO BID 03/03/21 10/29/21 History multivitamin with minerals 1 tablet PO DAILY 03/03/21 10/29/21 History omeprazole 20 mg PO BID 03/03/21 10/29/21 History ondansetron 4 mg PO Q8H PRN 03/03/21 10/29/21 History polyethylene glycol 3350 [Miralax] 17 g PO DAILY 03/03/21 10/29/21 History sennosides-docusate sodi
--- NOTE | 2021-10-30 11:11 | PM.CNCAR ---
Assessment and Plan Assessment and plan (1) Non-sustained ventricular tachycardia: Code(s): I47.2 - Ventricular tachycardia Status: Acute Assessment and Plan: On Amiodarone drip and her arrhythmias resolved at this time. Patient has decided to go with hospice, and hospice will assume care. (2) Paroxysmal atrial tachycardia: Code(s): I47.1 - Supraventricular tachycardia Status: Acute Assessment and Plan: Resolved on Amiodarone. (3) Elevated troponin: Code(s): R77.8 - Other specified abnormalities of plasma proteins Status: Acute Assessment and Plan: Mild and less than in Feb 2022. Probably related to UTI and not ACS. (4) UTI (urinary tract infection): Code(s): N39.0 - Urinary tract infection, site not specified Status: Acute Assessment and Plan: Managed with antibiotics per hospitalist. (5) Combined systolic and diastolic congestive heart failure: Code(s): I50.40 - Unspecified combined systolic (congestive) and diastolic (congestive) heart failure Status: Acute Assessment and Plan: Obtain echo if patient so desires. (6) Aortic stenosis: Code(s): I35.0 - Nonrheumatic aortic (valve) stenosis Status: Acute Assessment and Plan: Mild on echo in Feb. (7) CAD (coronary artery disease), autologous vein bypass graft: Code(s): I25.810 - Atherosclerosis of coronary artery bypass graft(s) without angina pectoris Status: Acute Assessment and Plan: Stable. History of Present Illness History of Present Illness Consult date/time: 10/30/21 11:12 Reason for consult: [place] 85 yr old woman presents to hospital with altered mental status though she has a history of dementia and oriented x 2. I saw her in hospital setting twice in Feb and Mar 2021. At that time she was having UTI and episodes of PAT and PVT, and was placed on Amiodarone which resolved arrhythmias. She has a history of worsening confusion probably due to dementia, CAD/CABG x 5 vessels at [facility] in 2012, PAT/PVT on Amiodarone, systolic dysfunction, DM, UTI, DNR code status, and resides at [facility]. Late last night on medical floor she was having frequent episodes of VT and going into atrial tachycardia. A rapid response was called this morning, and she was transferred to IMU. This morning she was in atrial tachycardia wit frequent NSVT. Amiodarone bolus and drip was started and at about 09:30 the arrhythmias resolved. This morning she with her family at bedside decided not to have any more venous blood draws as they were having trouble finding her veins also, and she did not want Amiodarone drip any longer. Patient appears coherent but soft spoken saying a few words, and decided she did not want anything else done for her. The family reiterated the same. She states she does have some sob, but no chest pains. She does have a UTI. Reason For Visit: Weakness, UTI Failed Outpatient, Elevated Troponin Review of Systems Review of Systems: All systems reviewed & are unremarkable except as noted in HPI and below Constitutional: Constitutional: Reports as per HPI, Denies chills and Denies fever(s) Cardiovascular: Cardiovascular: Reports as per HPI, Denies chest pain and Reports dyspnea Respiratory: Respiratory: Reports as per HPI and Reports dyspnea Gastrointestinal: Gastrointestinal: Reports as per HPI and Denies abdominal pain Genitourinary: Genitourinary: Reports as per HPI Musculoskeletal: Musculoskeletal: Reports as per HPI Neurologic: Reports as per HPI, Denies dizziness and Denies syncope [facility] Past Medical History Medical History (Updated 10/30/21 @ 08:41 by Treva Chery, CONGRESSIONAL ASSISTANT) Altered mental status (~02/2021) [place] to be related to urinary tract infection. 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 Arthritis Combined systolic and diastolic congestive heart failure Echocardiogram on 03/04/20
[2021-10-30] MEDS: MORPHINE SULFATE ORAL CONC SOL (*CRX) 10 MG/0.5 ML SYRINGE 5 MG PO ×2 (12:47→16:52)
[2021-10-30] MEDS: LORazepam (*CRX) 2 MG/ML 30 ML ORAL CONCENTRATE 0.5 MG SUBLINGUAL (12:48)
--- NOTE | 2021-10-30 16:21 | PM.DS ---
DS: Admitting Diagnosis Discharge Date 10/30/2021 Admitting Diagnosis Urinary tract infection Altered mental status DS: Discharge Diagnosis Discharge Diagnosis (1) Decreased responsiveness: Code(s): R41.89 - Other symptoms and signs involving cognitive functions and awareness Status: Acute Assessment and Plan: Aside from her whispering mumbles, the patient seems to be at her baseline at this time. (2) Abnormal urinalysis: Code(s): R82.90 - Unspecified abnormal findings in urine Status: Acute Assessment and Plan: CBC, CMP, UA, reviewed Obtain urine culture if needed Follow temp curve, cultures, WBC, and VS Ceftriaxone 1g IV daily (3) Abnormal computed tomography of abdomen and pelvis: Code(s): R93.5 - Abnormal findings on diagnostic imaging of other abdominal regions, including retroperitoneum Status: Acute Assessment and Plan: Consult Urology given suprapubic discomfort, abnormal UA, and findings of calcific densities noted near the base of the bladder. (4) Macrocytic anemia: Code(s): D53.9 - Nutritional anemia, unspecified Status: Acute Assessment and Plan: Previous anemia workup as per medical history. Hemoglobin and hematocrit are stable on review of previous labs. (5) Combined systolic and diastolic congestive heart failure: Code(s): I50.40 - Unspecified combined systolic (congestive) and diastolic (congestive) heart failure Status: Acute Assessment and Plan: She appears euvolemic on exam. Avoid over-hydration. (6) Type 2 diabetes mellitus: Code(s): E11.9 - Type 2 diabetes mellitus without complications Status: Acute Assessment and Plan: Continue Januvia. Initiate sliding scale insulin, Accu-Cheks, and hypoglycemic protocol. (7) Elevated troponin: Code(s): R77.8 - Other specified abnormalities of plasma proteins Status: Acute Assessment and Plan: Troponins appear to be mildly elevated at baseline. Appears to have a slightly elevated troponin at baseline however patient has developed nonsustained V-tach (8) Paroxysmal atrial tachycardia: Code(s): I47.1 - Supraventricular tachycardia Status: Acute Assessment and Plan: Currently in a sinus rhythm. Continue amiodarone. --transitioned into nonsustained V-tach (9) Non-sustained ventricular tachycardia: Code(s): I47.2 - Ventricular tachycardia Status: Acute Assessment and Plan: Continue amiodarone, bolus amiodarone dose administered at 7:42 a.m. followed by continuous DS: Summary Hospital Course Reason for hospitalization: Altered mental status UTI Hospital Course: 85-year-old female with history of frequent urinary tract infections, congestive heart failure, coronary artery disease, aortic stenosis, diabetes, and other comorbidities who presented to the emergency department from [facility] for evaluation of altered mental status. Due to her dementia she is only a fair historian and as such some of the following is obtained via a review of her electronic medical records as well as discussions with her daughter, with the patient's permission. At baseline the patient is alert and oriented x2 and can typically hold a conversation though she is at times confused. This morning she was not responding much to staff aside from an occasional nod or shake of her head and she was brought in for evaluation. According to the daughter, the patient was diagnosed with the UTI on Monday and she has been on antibiotics since that time. The patient is incontinent and is difficult for her to tell me if she has had increased urinary frequency, urgency, or hesitancy. She denies overt dysuria however she does complain of suprapubic tenderness which is worse with palpation and movement. Vital signs were stable on arrival to the emergency department. White blood cell count was normal. Urine was clou
[2021-10-30] MEDS: GABAPENTIN 100 MG CAPSULE 200 MG PO (17:20)
[2021-10-30 17:48] LABS: Glucose Point of Care 197 mg/dl (65-105)
[2021-10-30 18:09] LABS: Glucose Point of Care 165 mg/dl (65-105)
--- NOTE | 2021-10-30 19:26 | PC.NURSE ---
1800 Waiting for ambulance to transfer pt to [place] - pt is discharging with hospice care- [place]-family at bedside
--- NOTE | 2021-10-30 19:27 | PC.NURSE ---
1630- Family at bedside-pt being discharge -report given to Vale Barber RN at [facility] -hospice care- ambulance called for transfer
--- NOTE | 2021-10-30 19:54 | PC.NURSE ---
[facility] service transfer pt to [facility] at 1952.
== END 2021-10-30 20:00 | disposition home or self-care (01) ==
LOC: ANHED 12:27 → ANH3MED 18:07 → ANHIMU 10-30 16:21 → ANH3MED 11-02 15:39 → ANHIMU 11-02 15:39
PROVIDERS: Emergency Medicine; Internal Medicine; Admitting Provider Internal Medicine; Emergency Provider General Practice; PCP Family Medicine; Visit Provider Nurse Practitioner Family
DX: R41.82 Altered mental status, unspecified (principal); N39.0 Urinary tract infection, site not specified; I47.2 Ventricular tachycardia; R82.90 Unspecified abnormal findings in urine; R93.5 Abnormal findings on diagnostic imaging of other abdominal regions, including retroperitoneum; I50.40 Unspecified combined systolic (congestive) and diastolic (congestive) heart failure; I11.0 Hypertensive heart disease with heart failure; F03.90 Unspecified dementia, unspecified severity, without behavioral disturbance, psychotic disturbance, mood disturbance, and anxiety; Z95.1 Presence of aortocoronary bypass graft; I25.10 Atherosclerotic heart disease of native coronary artery without angina pectoris; E11.9 Type 2 diabetes mellitus without complications; I47.1 Supraventricular tachycardia; R77.8 Other specified abnormalities of plasma proteins; Z20.822 Contact with and (suspected) exposure to COVID-19
CPT/HCPCS: 36415; 51701; 70450; 71045; 74177; 80048; 80053; 81001; 82948; 83735; 84100; 84484; 85025; 85610; 85730; 87077; 87086; 87186; 93005; 96361; 96365; 96366; 96375; 99285; A9270; C9803; G0378; J0282; J0696; J7030; Q9967; U0003; U0005